=== PATIENT | male | born 1950 | race Caucasian/White ===

== ENCOUNTER 2018-11-25 13:23 | Emergency (ER) | payer MEDICARE, OTHER, SELFPAY ==
[2018-11-25] VITALS (7 sets, daily range): BP systolic 145–153; BP diastolic 80–85; PULSE 56–65; RESP 16; TEMP 36.6–36.7; O2SAT 95–98
--- NOTE | 2018-11-25 14:02 | W.ED.GENAD ---
Discharge Plan Disposition Patient Disposition: HOME Condition: Stable Discharge Details Chief Complaint: Dizzy/Sync Clinical Impression: Vertigo Primary Care Provider: Susanne,Local ED Provider: Emi Summers Home Meds and New Rx's Prescriptions: New meclizine 25 mg tablet 25 mg PO TID PRN (Reason: dizziness) Qty: 12 RF: 0 Continued levothyroxine [Synthroid] 100 mcg Tablet 100 mcg PO DAILY RF: 0 multivitamin [Multiple Vitamins] Tablet 1 tab PO DAILY RF: 0 Cpap RF: 0 Discharge Instructions Instructions: Meclizine (By mouth), Vertigo (ED) Additional Instructions: Please return immediately to the emergency department if you develop any new or worsening symptoms or if you become otherwise concerned. It is extremely important that you call as soon as possible to make an appointment to be seen by your primary care doctor in follow-up this visit. Discharge Data Discharge Date/Time-TO BE ENTERED AT DEPARTURE: 11/25/18 18:00 Medical Decision Making Dinesh Rodriguez is a 68-year-old man with a history of hypothyroidism who presented to the emergency department complaining of sudden onset vertigo that began this morning, in the setting of 2 other new episodes in the past few weeks associated with cold symptoms. On exam patient is very well and nontoxic appearing. Benign neurologic exam. Benign exam of the ears. Concern for central versus peripheral vertigo. Exam/history is not consistent with meningitis, sepsis, acute aortic pathology, central venous thrombosis. Plan for screening labs, EKG, MRI brain, telemetry. Will monitor and reassess. Discussed patient presentation, need for rule out central etiology of vertigo, Dr. Mitchell of radiology requested CT head, MRI brain, MRA [place] and carotids. Imaging negative. Patient received meclizine. Has been walking about the ED without issue. Patient reports that he feels much improved and essentially at baseline since receiving meclizine. He also reports that his ears have been popping a lot in the past few minutes. Suspect that patient symptoms secondary to inner ear dysfunction from recent congestion. Patient counseled to use [id number] Sudafed for flight tomorrow. Plan for Rx meclizine. I had a lengthy discussion with the patient regarding return to emergency department precautions, importance of outpatient follow-up with his PCP (patient has appointment with his PCP in 1 week already scheduled), and home care. Patient verbalized understanding of the plan was amenable. Patient was discharged home with clear plan for outpatient follow-up. All questions were answered. Medical Records Medical records reviewed: Yes I reviewed the patient's medical records. Imaging Data Radiologic Study: Attestation: I personally reviewed and interpreted this imaging study as follows: Radiologist's impression: CRANIAL CT: A noncontrast cranial CT was performed. The ventricular system is normal in appearance. There is no evidence of an intracranial mass lesion. There is no evidence of a subdural or epidural hematoma. No focal areas of decreased attenuation are seen. CONCLUSION: Normal noncontrast cranial CT. MR Angiography Neck Without Contrast EXAM DATE/TIME: 11/25/2018 2:33 PM CLINICAL HISTORY: 68 years old, male; Dizziness and giddiness; Patient HX: Vertigo since this morning, no recent trauma TECHNIQUE: Imaging protocol: Magnetic resonance angiography images of the neck without intravenous contrast. 3D rendering: MIP reconstructed images were created and reviewed. COMPARISON: No relevant prior studies available. FINDINGS: Motion somewhat limits evaluation. Right common carotid artery: Unremarkable. No stenosis. No dissection or occlusion. Right internal carotid artery: Unremarkable extracranial segment. No stenosis. No dissection or occlusion. Right external carotid artery: Unremarkable. No stenosis. No dissection or occlusion. Right vertebral artery: Unremarkable. No stenosis. No dissection or occlusion. Left common carotid artery: Unremarkable. No stenosis. No dissection or occlusion. Left internal carotid artery: Unremarkable extracranial segment. No stenosis. No dissection or occlusion. Left external carotid artery: Unremarkable. No stenosis. No dissection or occlusion of the origin. Left vertebral artery: Unremarkable. No stenosis. No dissection or occlusion. IMPRESSION: No hemodynamically significant stenosis. COMMENT: Reference per NASCET criteria for degree of stenosis: Mild: less than 50% stenosis. Moderate: 50-69% stenosis. Severe: 70-94% stenosis. Near occlusion: 95-99% stenosis. MR Head Without Contrast EXAM DATE/TIME: 11/25/2018 4:22 PM CLINICAL HISTORY: 68 years old, male; Patient HX: Vertigo, since this morning. Patient states sinus issues. TECHNIQUE: Imaging protocol: MR of the head without contrast. COMPARISON: HEAD^MRA COW 11/25/2018 4:16 PM FINDINGS: Brain: Mild age-related involutional changes of the brain are present. A few scattered T2/flair hyperintensities are present scattered in the white matter. These are within normal limits for patient age and most likely reflect chronic microangiopathy. No acute infarct. No hemorrhage. No edema. Ventricles: Normal. No ventriculomegaly. Bones/joints: Unremarkable. Soft tissues: Normal. Sinuses: Normal as visualized. No acute sinusitis. Mastoid air cells: Bilateral mastoid effusions are present. No significant fluid is seen in the middle air cavities. Orbits: Unremarkable. IMPRESSION: 1. No acute intracranial findings. 2. Bilateral mastoid effusions. MR Angiogram Head Without Contrast, Arteries EXAM DATE/TIME: 11/25/2018 4:22 PM CLINICAL HISTORY: 68 years old, male; Patient HX: Vertigo since this morning, no recent trauma, no visual disturbances. TECHNIQUE: Imaging protocol: MR angiogram head without contrast. Exam focused on the arteries. 3D rendering: MIP reconstructed images were created and reviewed. COMPARISON: CT HEAD WO 11/25/2018 3:02 PM FINDINGS: Right internal carotid artery: Unremarkable. Intracranial segment is patent with no significant stenosis. No aneurysm. Right anterior cerebral artery: Unremarkable. No occlusion or significant stenosis. No aneurysm. Right middle cerebral artery: Unremarkable. No occlusion or significant stenosis. No aneurysm. Right posterior cerebral artery: Unremarkable. No occlusion or significant stenosis. No aneurysm. Right vertebral artery: Unremarkable. No occlusion or significant stenosis. No aneurysm. Left internal carotid artery: Unremarkable. Intracranial segment is patent with no significant stenosis. No aneurysm. Left anterior cerebral artery: Unremarkable. No occlusion or significant stenosis. No aneurysm. Left middle cerebral artery: Unremarkable. No occlusion or significant stenosis. No aneurysm. Left posterior cerebral artery: Unremarkable. No occlusion or significant stenosis. No aneurysm. Left vertebral artery: Unremarkable. No occlusion or significant stenosis. No aneurysm. Basilar artery: Unremarkable. No occlusion or significant stenosis. No aneurysm. IMPRESSION: No acute findings. Lab Data Lab results reviewed: Yes I reviewed the patient's lab results. Laboratory Tests Range/Units 11/25/18 11/25/18 11/25/18 14:35 14:35 14:35 WBC (4.4-10.8) k/cumm 7.56 RBC (4.50-6.00) m/cumm 5.11 Hgb (13.5-17.5) g/dL 15.9 Hct (40.0-50.0) % 45.9 MCV (80-95) fL 89.8 MCH (27.0-33.0) pg 31.1 MCHC (32.0-36.0) g/dL 34.6 RDW (11.8-14.1) % 13.3 Plt Count (130-400) x1000/uL 182 MPV (8.0-11.0) fL 11.3 H Immature Gran % 0.3 Neutrophils % 61.5 Lymphocytes % 26.3 Monocytes % 8.3 Eosinophils % 3.3 Basophils % 0.3 Absolute Neutrophils (1.2-6.7) k/cumm 4.65 Absolute Lymphocytes (1.2-3.4) k/cumm 1.99 Absolute Monocytes (0.11-0.7) k/cumm 0.63 Absolute Eosinophils (0.0-0.7) k/cumm 0.25 Absolute Basophils (0.0-0.2) k/cumm 0.02 PT (9.3-11.0) sec 10.2 INR (0.9-1.1) 1.0 Sodium (136-145) mmol/L 139 Potassium (3.5-5.1) mmol/L 3.9 Chloride (98-107) mmol/L 105 Carbon Dioxide (21.0-32.0) mmol/L 23.3 Anion Gap (3-11) mmol/L 10.7 BUN (7-18) mg/dL 20 H Creatinine (0.70-1.30) mg/dL 1.06 Estimated GFR/1.73 m2 (mL/min/1.73m2) >= 60.00 Glucose (70-100) mg/dL 96 Calcium (8.5-10.1) mg/dL 8.9 Total Bilirubin (0.2-1.0) mg/dL 0.5 AST (15-37) U/L 32 ALT (12-78) U/L 72 Alkaline Phosphatase (46-116) U/L 88 Total Protein (6.4-8.2) g/dL 7.3 Albumin (3.4-5.0) g/dL 3.7 TSH (0.358-3.74) uIU/mL 2.08 ECG Data Attestation: I personally reviewed and interpreted this ECG (s) as follows: Interpretation: EKG shows sinus rhythm at 63, normal axis, incomplete right bundle branch block, no STEMI, nondiagnostic EKG HPI General Mode of arrival: ambulatory. Date/Time Provider Initiated Documentation: 11/25/18 14:02. Limitations to Documentation: no limitations. Information obtained by: patient, RN notes reviewed and old records reviewed. HPI Narrative: Dinesh Rodriguez is a 68-year-old male with a history of hypothyroidism presenting to the emergency department with vertigo. Patient states that approximate 3 weeks ago he had congestion body aches sweats that lasted for 5 days. Patient flew from [place] to [place] 2 weeks ago, and reports that after that flight he had another 5 days of congestion, sweats, and body aches. He also notes that he had some vertigo at that time, which she has never had in the past. Patient reports that he had another episode of vertigo that lasted for 1 day several days ago with other symptoms. Patient reports that otherwise he has been feeling well in his usual state of health for the past 3 days. He woke up this morning, and upon sitting up to get out of bed, he developed significant vertigo to the point where he felt that he could not walk. Patient reports that vertigo continues, and is worse with a change in his position. He also notes that he has a buzzing/humming in both ears. He denies headaches, any other pain, shortness of breath, cough, numbness/weakness the extremities, rash. Patient reports that he has never had vertigo prior to onset several weeks ago as described above. Has been eating and drinking as usual. Reports rare alcohol and marijuana use, no tobacco use. Related Data Home Medications Medication Instructions Recorded Confirmed Cpap 11/25/18 levothyroxine [Synthroid] 100 mcg PO DAILY 11/25/18 11/25/18 meclizine 25 mg PO TID PRN #12 tab 11/25/18 multivitamin [Multiple Vitamins] 1 tab PO DAILY 11/25/18 11/25/18 Previous Rx's Medication Instructions Recorded meclizine 25 mg PO TID PRN #12 tab 11/25/18 Allergies Allergy/AdvReac Type Severity Reaction Status Date / Time cilantro Allergy Uncoded 11/25/18 13:45 General Stated Complaint: Dizzy/Sync MARCK: 3 Review of Systems Review of Systems Constitutional: denies fevers Eyes: denies eye pain ENT: denies facial pain, dental pain, sore throat, reports nasal congestion, mild buzzing/coming in the ears that is not currently occurring Cardiovascular: denies chest pain, edema Respiratory: denies SOB, cough GI: denies abdominal pain, vomiting, diarrhea : denies flank pain MSK: denies back pain, neck pain, arthralgias, myalgias Skin: denies rash Neuro: denies headaches, numbness, weakness, reports vertigo PFSH Medical History Hypothyroidism (Chronic) Social History Smoking/Tobacco Use Status: Never Substance use type: marijuana Exam Narrative Exam Narrative: Constitutional: well and [id number], pleasant, conversing normally HENT: head atraumatic/normocephalic/normal inspection, mucous membranes moist, TMs and canals normal bilaterally, normal exam of the outer ears, no mastoid tenderness to palpation bilaterally Eyes: conjunctiva normal, sclera normal, pupils 3mm b/l Neck: no stridor, normal ROM, trachea midline Chest: normal inspection Resp: normal work of breathing, LCTAB Cardio: normal rate, normal rhythm, no murmur appreciated GI: abdomen soft, non-tender, non-distended Back: normal inspection, no rash Skin: warm, dry, normal color, no rash Neuro: alert, not altered, cranial nerves II through XII intact, motor 5 out of 5 throughout, normal tone, Ext: no edema, no posterior calf tenderness to palpation Psych: normal mood, normal affect, normal behavior Course Vital Signs Temperature 36.7 C 11/25/18 13:39 Pulse 65 11/25/18 13:39 Respiratory Rate 16 11/25/18 13:39 Blood Pressure 151/80 H 11/25/18 13:39 Pulse Oximetry 96 11/25/18 13:39 Temperature 36.7 C 11/25/18 13:39 Temperature Source Skin 11/25/18 13:39 Pulse 65 11/25/18 13:39 Respiratory Rate 16 11/25/18 13:39 Respiratory Effort Non-Labored 11/25/18 13:39 Blood Pressure 151/80 H 11/25/18 13:39 Blood Pressure Position Sitting 11/25/18 13:39 Pulse Oximetry 96 11/25/18 13:39 Oxygen Delivery Method Room Air 11/25/18 13:39 Oxygen Flow Rate 0 11/25/18 13:39 Pain Level 0 11/25/18 13:39
--- NOTE | 2018-11-25 14:30 | DI.CT_ITS ---
SYMPTOMS/DIAGNOSIS: VERTIGO CRANIAL CT: A noncontrast cranial CT was performed. The ventricular system is normal in appearance. There is no evidence of an intracranial mass lesion. There is no evidence of a subdural or epidural hematoma. No focal areas of decreased attenuation are seen. CONCLUSION: Normal noncontrast cranial CT.
[2018-11-25 14:42] LABS: Abs Immature Grans 0.02 k/cumm (0.0-0.09); Absolute Basophil Count 0.02 k/cumm (0.0-0.2); Absolute Eosinophil Count 0.25 k/cumm (0.0-0.7); Absolute Lymphocyte Count 1.99 k/cumm (1.2-3.4); Absolute Monocyte Count 0.63 k/cumm (0.11-0.7); Absolute Neutrophil Count 4.65 k/cumm (1.2-6.7); Basophils % 0.3; Eosinophils % 3.3; HCT 45.9 % (40.0-50.0); HGB 15.9 g/dL (13.5-17.5); Immature Grans % 0.3; Lymphocytes % 26.3; Mean Corp. HGB Concentration 34.6 g/dL (32.0-36.0); Mean Corpuscular Hemoglobin 31.1 pg (27.0-33.0); Mean Corpuscular Volume 89.8 fL (80-95); Mean Platelet Volume 11.3 fL (8.0-11.0); Monocytes % 8.3; Neutrophils % 61.5; Platelet Count 182 x1000/uL (130-400); RBC 5.11 m/cumm (4.50-6.00); RBC Distribution Width 13.3 % (11.8-14.1); White Blood Cell Count 7.56 k/cumm (4.4-10.8)
[2018-11-25 14:53] LABS: Prothrombin Time 10.2 sec (9.3-11.0)
[2018-11-25 15:06] LABS: ALT 72 U/L (12-78); AST 32 U/L (15-37); Albumin 3.7 g/dL (3.4-5.0); Alkaline Phosphatase 88 U/L (46-116); Anion Gap 10.7 mmol/L (3-11); BUN 20 mg/dL (7-18); Bilirubin, Total 0.5 mg/dL (0.2-1.0); CO2 23.3 mmol/L (21.0-32.0); CREATININE 1.06 mg/dL (0.70-1.30); Calcium 8.9 mg/dL (8.5-10.1); Chloride 105 mmol/L (98-107); Glucose 96 mg/dL (70-100); Potassium 3.9 mmol/L (3.5-5.1); Sodium 139 mmol/L (136-145); TSH (W/Ref FT4) 2.08 uIU/mL (0.358-3.74); Total Protein 7.3 g/dL (6.4-8.2)
--- NOTE | 2018-11-25 16:15 | DI.MRI_ITS ---
SYMPTOM/DIAGNOSIS: VERTIGO MR ANGIOGRAPHY CERVICAL REGION: MR angiography of the carotid and vertebral circulation was performed according to the usual protocol utilizing 2D time of flight acquisition. There is marked motion artifact which limits interpretation. No gross evidence of occlusion involving the vertebral arteries or visualized portion of the basilar artery. No occlusion of common internal or external carotid arteries. CONCLUSION: Severely motion limited study. No gross occlusion. CTA of the carotid circulation may be obtained for further evaluation as clinically indicated. BRAIN MRI: MRI examination of the brain was performed according to the usual protocol. There is mild generalize cerebral atrophy. Minimal signal changes in periventricular white matter are consistent with mild microvascular ischemic changes. No other signal abnormality identified in the brain. Diffusion weighted imaging shows no evidence of infarction. Susceptibility weighted imaging shows no evidence of intracranial hemorrhage. There is a normal flow void in the [place] vasculature. The orbital structures appear intact as does the pituitary. There is mildly increased signal in mastoid air cells bilaterally on T 2 weighted images consistent with a mild serous mastoiditis. Otherwise the temporal bone structures appear intact. CONCLUSION: No evidence of acute intracranial process. No evidence of infarction. MR ANGIOGRAPHY [place] REGION: MR angiography of the [place] region was performed according to the usual protocol. The visualized intracranial portions of the internal carotid arteries appear of normal diameter with no evidence of occlusion, dissection or aneurysm. Basilar artery is unremarkable with no evidence of occlusion, dissection or aneurysm. Posterior, middle and anterior cerebral arteries appear intact bilaterally with no evidence of occlusion, dissection or aneurysm. CONCLUSION: Negative MR angiography [place] region.
--- NOTE | 2018-11-25 16:59 | DI.VRAD_ITS ---
EXAM: MR Head Without Contrast EXAM DATE/TIME: 11/25/2018 4:22 PM CLINICAL HISTORY: 68 years old, male; Patient HX: Vertigo, since this morning. Patient states sinus issues. TECHNIQUE: Imaging protocol: MR of the head without contrast. COMPARISON: HEAD^MRA COW 11/25/2018 4:16 PM FINDINGS: Brain: Mild age-related involutional changes of the brain are present. A few scattered T2/flair hyperintensities are present scattered in the white matter. These are within normal limits for patient age and most likely reflect chronic microangiopathy. No acute infarct. No hemorrhage. No edema. Ventricles: Normal. No ventriculomegaly. Bones/joints: Unremarkable. Soft tissues: Normal. Sinuses: Normal as visualized. No acute sinusitis. Mastoid air cells: Bilateral mastoid effusions are present. No significant fluid is seen in the middle air cavities. Orbits: Unremarkable. IMPRESSION: 1. No acute intracranial findings. 2. Bilateral mastoid effusions. Dictated and Authenticated by: Karlos Bullard MD. Ordering:ARTHUR Middleton MD
--- NOTE | 2018-11-25 17:01 | DI.VRAD_ITS ---
EXAM: MR Angiography Neck Without Contrast EXAM DATE/TIME: 11/25/2018 2:33 PM CLINICAL HISTORY: 68 years old, male; Dizziness and giddiness; Patient HX: Vertigo since this morning, no recent trauma TECHNIQUE: Imaging protocol: Magnetic resonance angiography images of the neck without intravenous contrast. 3D rendering: MIP reconstructed images were created and reviewed. COMPARISON: No relevant prior studies available. FINDINGS: Motion somewhat limits evaluation. Right common carotid artery: Unremarkable. No stenosis. No dissection or occlusion. Right internal carotid artery: Unremarkable extracranial segment. No stenosis. No dissection or occlusion. Right external carotid artery: Unremarkable. No stenosis. No dissection or occlusion. Right vertebral artery: Unremarkable. No stenosis. No dissection or occlusion. Left common carotid artery: Unremarkable. No stenosis. No dissection or occlusion. Left internal carotid artery: Unremarkable extracranial segment. No stenosis. No dissection or occlusion. Left external carotid artery: Unremarkable. No stenosis. No dissection or occlusion of the origin. Left vertebral artery: Unremarkable. No stenosis. No dissection or occlusion. IMPRESSION: No hemodynamically significant stenosis. COMMENT: Reference per NASCET criteria for degree of stenosis: Mild: less than 50% stenosis. Moderate: 50-69% stenosis. Severe: 70-94% stenosis. Near occlusion: 95-99% stenosis. Dictated and Authenticated by: Karlos Bullard MD. Ordering:ARTHUR Middleton MD
--- NOTE | 2018-11-25 17:04 | DI.VRAD_ITS ---
EXAM: MR Angiogram Head Without Contrast, Arteries EXAM DATE/TIME: 11/25/2018 4:22 PM CLINICAL HISTORY: 68 years old, male; Patient HX: Vertigo since this morning, no recent trauma, no visual disturbances. TECHNIQUE: Imaging protocol: MR angiogram head without contrast. Exam focused on the arteries. 3D rendering: MIP reconstructed images were created and reviewed. COMPARISON: CT HEAD WO 11/25/2018 3:02 PM FINDINGS: Right internal carotid artery: Unremarkable. Intracranial segment is patent with no significant stenosis. No aneurysm. Right anterior cerebral artery: Unremarkable. No occlusion or significant stenosis. No aneurysm. Right middle cerebral artery: Unremarkable. No occlusion or significant stenosis. No aneurysm. Right posterior cerebral artery: Unremarkable. No occlusion or significant stenosis. No aneurysm. Right vertebral artery: Unremarkable. No occlusion or significant stenosis. No aneurysm. Left internal carotid artery: Unremarkable. Intracranial segment is patent with no significant stenosis. No aneurysm. Left anterior cerebral artery: Unremarkable. No occlusion or significant stenosis. No aneurysm. Left middle cerebral artery: Unremarkable. No occlusion or significant stenosis. No aneurysm. Left posterior cerebral artery: Unremarkable. No occlusion or significant stenosis. No aneurysm. Left vertebral artery: Unremarkable. No occlusion or significant stenosis. No aneurysm. Basilar artery: Unremarkable. No occlusion or significant stenosis. No aneurysm. IMPRESSION: No acute findings. Dictated and Authenticated by: Karlos Bullard MD. Ordering:ARTHUR Middleton MD
[2018-11-25] MEDS: Meclizine 25 MG TAB PO (17:13)
== END 2018-11-25 18:00 | disposition home or self-care (01) ==
PROVIDERS: Emergency Provider Student in an Organized Health Care Education/Training Program
DX: R42 Dizziness and giddiness (principal); H74.8X3 Other specified disorders of middle ear and mastoid, bilateral
CPT/HCPCS: 36415; 70544; 70547; 80053; 93005; 99285; 70450; 70551; 84443; 85025; 85610; 93010

== ENCOUNTER 2021-04-17 03:15 | Outpatient (CLI) | payer MEDICARE, MEDICAID, SELFPAY ==
--- OUTSIDE RECORDS SUMMARY | 2021-04-17 03:17 | XMS_ITS | Encounter Summary ---
:1950 Author Organization [facility] [place] [address] Care Team Providers Name Role Phone MD Sukh Primary Care Provider Reason for Visit Reason Onset Date Comments COVID Vaccination 06/13/2020 Encounter Details Date Type Department Care Team Description 06/13/2020 Immunizations SBCPHD SYBIL AMANDAHoa Louis Nee d for vaccination PRIMARY CARE RN (Primary Dx) [address] [place] [id number] [phone] Social History Tobacco Use Types Packs/Day Years Used Date Never Smoker Smokeless Tobacco: Never Used Alcohol Use Standard Drinks/Week Comments No 0 (1 standard drink = 0.6 oz pure alcoho l) ocasionally Alcohol Habits Answer Date Recorded How often do you have a drink containing alcohol? Not asked How many drinks containing alcohol do you have on a Not aske d typical day when you are drinking? How often do you have six or more drinks on one occasion? No t asked Comment: ocasionally 07/19/2017 Sex Assigned at Date Recorded Male 07/19/2017 10:24 AM PST COVID-19 Exposure Response Date Recorded In the last month, have you been in contact with No / Unsure 06/13/2020 7:37 AM PST someone who was confirmed or suspected to have Coronavirus / COVID-19? documented as of this encounter Patient Instructions Patient InstructionsHoa Mendez RN - 06/13/2020 11:06 AM PST Images from the original note were not included. FACT SHEET FOR RECIPIENTS AND CAREGIVERS EMERGENCY USE AUTHORIZATION (EUA) OF THE MODERNA COVID-19 VACCINE TO PREVENT CORONAVIRUS DISEASE 2019 (COVID-19) IN INDIVIDUALS 18 YEARS OF AGE AND OLDER You are being offered the Moderna COVID-19 Vaccine to prevent Coronavirus Disease 2019 (COVID-19) caused by SARS-CoV-2. This Fact Sheet contains information to help you understand the risks and benefits of the Moderna COVID- 19 Vaccine, which you may receive because there is currently a pandemic of COVI D-19. The Moderna COVID-19 Vaccine is a vaccine and may prevent you from getting COVID-19. There is no U.S. Food and Drug Administration (FDA) approved vaccine to prevent COVID-19. Read this Fact Sheet for information about the Moderna COVID-19 Vaccine. Talk to the vaccination provider if you have questions. It is your choice to receive the Moderna COVID-19 Vaccine. The Moderna COVID-19 Vaccine is administered as a 2-dose series, 1 month apart, into the muscle. The Moderna COVID-19 Vaccine may not protect everyone. This Fact Sheet may have been updated. For the most recent Fact Sheet, please visit www.[email or web address]/clwlt71jugqioy-lee. WHAT YOU NEED TO KNOW BEFORE YOU GET THIS VACCINE WHAT IS COVID-19? COVID-19 is caused by a coronavirus called SARS-CoV-2. This type of coronavirus has not been seen before. You can get COVID-19 through contact with another person who has the virus. It is predominantlya respiratory illness that can affect other organs. People with COVID- 19 have had a wide range of symptoms reported, ranging from mild symptoms to severe illness. Symptoms may appear 2 to 14 days after exposure to the virus. Symptoms may include: fever or chills; cough; shortness of breath; fatigue; muscle or body aches; headache; new loss of taste or smell; sore throat; congestion or runny nose; nausea or vomiting; diarrhea. WHAT IS THE MODERNA COVID-19 VACCINE? The Moderna COVID-19 Vaccine is an unapproved vaccine that may prevent COVID-19. There is no FDA-approved vaccine to prevent COVID-19. The FDA has authorized the emergency use of the Moderna COVID-19 Vaccine to prevent COVID-19 in individuals 18 years of age and older under an Emergency Use Authorization (EUA). For more information on EUA, see the ???What is an Emergency Use Authorization (EUA)??? section at the end of this Fact Sheet. WHAT SHOULD YOU MENTION TO YOUR VACCINATION PROVIDER BEFORE YOU GET THE MODERNA COVID-19 VACCINE? Tell your vaccination provider about all of your medical conditions, including if you: ??? have any allergies ??? have a fever ??? have a bleeding disorder or are on a blood thinner ??? are immunocompromised or are on a medicine that affects your immune system ??? are or plan to become ??? are ??? have received another COVID-19 vaccine WHO SHOULD GET THE MODERNA COVID-19 VACCINE? [facility] has authorized the emergency use of the Moderna COVID-19 Vaccine in individuals 18 years of age and older. WHO SHOULD NOT GET THE MODERNA COVID-19 VACCINE? You should not get the Moderna COVID-19 Vaccine if you: ??? had a severe allergic reaction after a previous dose of this vaccine ??? had a severe allergic reaction to any ingredient of this vaccine WHAT ARE THE INGREDIENTS IN THE MODERNA COVID-19 VACCINE? The Moderna COVID-19 Vaccine contains the following ingredients: messenger ribonucleic acid (mRNA), lipids (SM-102, polyethylene glycol [PEG] 2000 dimyristoyl glycerol [DMG], cholesterol, and 1,2-distea qdne-ee-fzqlttn-3-phosphocholine [DSPC]), tromethamine, tromethamine hydrochloride, acetic acid, sodium acetate, and sucrose. HOW IS THE MODERNA COVID-19 VACCINE GIVEN? The Moderna COVID-19 Vaccine will be given to you as an injection into the muscle. The Moderna COVID-19 Vaccine vaccination series is 2 doses given 1 month apart. If you receive one dose of the Moderna COVID-19 Vaccine, you should receive a second dose of the same vaccine 1 month later to complete the vaccination series. HAS THE MODERNA COVID-19 VACCINE BEEN USED BEFORE? The Moderna COVID-19 Vaccine is an unapproved vaccine. In clinical trials, approximately 15,400 individuals 18 years of age and older have received at least 1 dose of the Moderna COVID-19 Vaccine. WHAT ARE THE BENEFITS OF THE MODERNA COVID-19 VACCINE? In an ongoing clinical trial, the Moderna COVID-19 Vaccine has been shown to prevent COVID-19 following 2 doses given 1 month apart. The duration of protection against COVID-19 is currently unknown. WHAT ARE THE RISKS OF THE MODERNA COVID-19 VACCINE? Side effects that have been reported with the Moderna COVID-19 Vaccine include: ??? Injection site reactions: pain, tenderness and swelling of the lymph nodes in the same arm of the injection, swelling (hardness), and redness ??? General side effects: fatigue, headache, muscle pain, joint pain, chills, nausea and vomiting, and fever There is a remote chance that the Moderna COVID-19 Vaccine could cause a severe allergic reaction. Asevere allergic reaction would usually occur within a few minutes to one hour after getting a dose of the Moderna COVID-19 Vaccine. For this reason, your vaccination provider may ask you to stay at theplace where you received your vaccine for monitoring after vaccination. Signs of a severe allergic reaction can include: ??? Difficulty breathing ??? Swelling of your face and throat ??? A fast heartbeat ??? A bad rash all over your body ??? Dizziness and weakness These may not be all the possible side effects of the Moderna COVID-19 Vaccine. Serious and unexpected side effects may occur. The Moderna COVID-19 Vaccine is still being studied in clinical trials. WHAT SHOULD I DO ABOUT SIDE EFFECTS? If you experience a severe allergic reaction, call 9--1, or go to the nearest hospital. Call the vaccination provider or your healthcare provider if you have any side effects that bother you or do not go away. Report vaccine side effects to FDA/CDC Vaccine Adverse Event Reporting System (VAERS). The VAERS toll-free number is or report online to https://vaers.hhs.gov/reportevent.html. Please include ???Moderna COVID-19 Vaccine EUA?? in the first line of box #18 of the report form. In addition, you can report side effects to [employer]. at [phone]-POWMFQM ([phone]- [phone]). You may also be given an option to enroll in TSB. AkesoGenX is a new voluntary smartphone-based toolthat uses text messaging and web surveys to check in with people who have been vaccinated to identify potential side effects after COVID- 19 vaccination. Coolest Coolersafe asks questions that help CDC monitor the safety of COVID- 19 vaccines. V-safe also provides second-dose reminders if needed and live telephone follow-up by [facility] if participants report a significant health impact following COVID-19 vaccination. For more information on how to sign up, visit: www.cdc.gov/vsafe. WHAT IF I DECIDE NOT TO GET THE MODERNA COVID-19 VACCINE? It is your choice to receive or not receive the Moderna COVID-19 Vaccine. Should you decide not to receive it, it will not change your standard medical care. ARE OTHER CHOICES AVAILABLE FOR PREVENTING COVID-19 BESIDES MODERNA COVID-19 VACCINE? Currently, there is no FDA-approved alternative vaccine available for prevention of COVID-19. Other vaccines to prevent COVID-19 may be available under Emergency Use Authorization. CAN I RECEIVE THE MODERNA COVID-19 VACCINE WITH OTHER VACCINES? There is no information on the use of the Moderna COVID-19 Vaccine with other vaccines. WHAT IF I AM OR ? If you are or , discuss your options with your healthcare provider. WILL THE MODERNA COVID-19 VACCINE GIVE ME COVID-19? No. The Moderna COVID-19 Vaccine does not contain SARS-CoV-2 and cannot give you COVID-19. KEEP YOUR VACCINATION CARD When you receive your first dose, you will get a vaccination card to show you when to return for your second dose of the Moderna COVID-19 Vaccine. Remember to bring your card when you return. ADDITIONAL INFORMATION If you have questions, visit the website or call the telephone number provided below. To access the most recent Fact Sheets, please scan the QR code provided below. Moderna COVID-19 Vaccine website Telephone number [email or web address] [phone]-RISTETA ( ) HOW CAN I LEARN MORE? Ask the vaccination provider ??? Visit CDC at https://www.cdc.gov/coronavirus/2019-ncov/index.html ??? Visit FDA at https://www.fda.gov/ceoqmawdn-xwyxlntiagul-qor-response/mcm-legal- upxurgltci-kjb-bpxivd-framework/hcukkyyzi-pct-itslasgmlbbms ??? Contact your state or local public health department WHERE WILL MY VACCINATION INFORMATION BE RECORDED? The vaccination provider may include your vaccination information in your state/local jurisdiction???s Immunization Information System (IIS) or other designated system. This will ensure that you receive the same vaccine when you return for the second dose. For more information about IISs, visit: https://www.cdc.gov/vaccines/programs/iis/about.html. WHAT IS THE COUNTERMEASURES INJURY COMPENSATION PROGRAM? The Countermeasures Injury Compensation Program (CICP) is a federal program that may help pay for costs of medical care and other specific expenses of certain people who have been seriously injured by certain medicines or vaccines, including this vaccine. Generally, a claim must be submitted to the CICP within one (1) year from the date of receiving the vaccine. To learn more about this program, visit www.[facility].gov/cicp/ or call . WHAT IS AN EMERGENCY USE AUTHORIZATION (EUA)? The [place] FDA has made the Moderna COVID-19 Vaccine available under an emergency access mechanism called an EUA. The EUA is supported by a [place] of Health and Human Services (HHS) declaration that circumstances exist to justify the emergency use of drugs and biological products during the COVID-19 pandemic. The Moderna COVID-19 Vaccine has not undergone the same type of review as an FDA- approved or cleared product. FDA may issue an EUA when certain criteria are met, which includes that there are no adequate, approved, and available alternatives. In addition, the FDA decision is based on the totality of the scientific evidence available showing that the product may be effective to prevent COVID-19 during the COVID-19 pandemic and that the known and potential benefits of the product outweigh the known and potential risks of the product. All of these criteria must be met to allow for the product to be used during the COVID-19 pandemic. The EUA for the Moderna COVID-19 Vaccine is in effect for the duration of the COVID-19 EUA declaration justifying emergency use of these products, unless terminated or revoked (after which the productsmay no longer be used). ??2020 [employer]. All rights reserved. Patent(s): [email or web address] Revised: 04/2020 documented in this encounter Progress Notes Hoa Mendez RN - 06/13/2020 11:06 AM PST Patient presents to the clinic for the First dose COVID-19 vaccination. Patient provided written and verbal consent and screened according to CDC guidelines. Patient provided with written copy of EUA and patient fact sheet prior to injection. Opportunity given to ask questions. Moderna COVID-19 vaccine given Intramuscular to right deltoid per standing order. Patient educated on common side effects of the vaccine, when to report an adverse event and encouraged to sign up for V-safe. Patient provided with a date to return for their second injection. documented in this encounter Plan of Treatment Not on filedocumented as of this encounter Goals Goal Patient Goal Associated Recent Patient-Stated? Author Type Problems Progress decrease General Yes Josemanuel, anxiety GABBY Deutsch Note: 1.) Continue paying attention to your se lf talk every day, and start using coping thoughts this week. 2.) Continue to go for walks for at leas t 30 minutes per day. 3.) Continue doing yoga at least once fo r at least 30 minutes this week. 4.) Continue to watch DIY videos which y ou find relaxing at least 3 times this week. 5.) Continue to practicing relaxation ex ercises for at least 10 minutes per day. documented as of this encounter Visit Diagnoses Diagnosis Need for vaccination - Primary Need for prophylactic vaccination and in oculation against unspecified single disease documented in this encounter Additional Health Concerns Assessment Noted Time PHQ-9 Depression Total Score: 0 05/25/2019 10:22 AM PS T documented as of this encounter Care Teams Gun Stocker Relationship Specialty Start Date End Date Lior Luz MD PCP - General Internal Medicine 07/19/17 01/16/21 [facility] [place] [id number] documented as of this encounter
--- OUTSIDE RECORDS SUMMARY | 2021-04-17 03:17 | XMS_ITS | Clinical Summary ---
:1950 Author Organization [facility] [place] [address] Care Team Providers Name Role Phone MD Selwyn Primary Care Provider Source Comments PLEASE NOTE, if this patient is a minor, it may be UNLAWFUL to discuss sensitive information that iscontained in these records (such as FAMILY PLANNING, MENTAL HEALTH or SUBSTANCE ABUSE) with the minor patient's parent or other person without the patient's specific authorization.[facility] Allergies No known active allergies Medications Medication Sig Dispensed Refills Start Date End Date Status sildenafil (VIAGRA) Instructions: 1/2 0 06/18/2016 Active 100 mg tablet to 1 tablet daily, 30 min - 4 hours before activity, as needed amytpgog-qoflaqwgv-FF Place 5 Drops 10 mL 0 12/03/2018 Active (CORTISPORIN) into the right 3.5-10,000-1 ear 4 (four) mg/mL-unit/mL-% otic times daily suspension fluticasone propionate Place 1 [place] in 16 g 2 03/09/2019 Active (FLONASE) 50 both nostrils mcg/actuation nasal once daily spray loratadine (CLARITIN) Take 1 Tab by 30 Tab 2 03/09/2019 Active 10 mg tablet mouth once daily as needed for allergies meclizine (ANTIVERT) Take 1 Tab by 45 Tab 1 12/25/2019 Active 25 mg tablet mouth once as needed for dizziness for up to 1 dose levothyroxine 100 mcg Take 1 Tablet by 90 Tablet 3 11/01/2020 Active tabletIndications: mouth once daily Hypothyroidism, unspecified type amLODIPine-benazepriL Take 1 Capsule by 90 Capsule 2 Active (LOTREL) 10-40 mg per mouth once daily capsule Active Problems Problem Noted Date Moderate mixed hyperlipidemia not requiring statin the rapy 06/28/2020 Last Assessment & Plan: Pt is very motivated to lose weight and change diet with his upcoming move. Although his The 10-year ASCVD risk scor e (Lio BLANC Jr., et al., 2013) is: 30.5%, I do think with aggressive lifestyle changes this could be greatly improved Discussed he will likely need a statin i n the future Pt will establish with PCP in [place] Pre-diabetes 06/28/2020 Benign paroxysmal positional vertigo due to bilateral vestibular disorder 12/25/2019 Last Assessment & Plan: Refill Meclizine Recommend josé miguel maneuvers, pt will look up Essential hypertension 07/22/2019 Last Assessment & Plan: Hypertension is well managed at this [facility]. Plan: Continue current treatment regimen and Regular aerobic exercise Blood pressure will be reassessed in 3 m [facility]. Nasal sinus congestion 03/09/2019 Last Assessment & Plan: flonase daily Trial of claritin Continue ibuprofen prn Follow up with Dr. Luz Partner relationship problems 03/09/2019 Last Assessment & Plan: Referral placed for [facility] Testosterone deficiency in male 07/25/2018 Elevated prostate specific antigen (PSA) 11/05/2017 Overview: bx 07/29/17: neg PSA: 6.2 on 04/2016 8. 6 04/2017 Last Assessment & Plan: PSA 9.9 from 9.[address] Lewis as pt is mov ing next month Osteoarthritis 10/26/2016 Obstructive sleep apnea 04/16/2016 Hypothyroidism 03/15/2016 Last Assessment & Plan: TFTs wnl Continue levothyroxine 100mcg daily Obesity 03/01/2016 Last Assessment & Plan: Discussed diet and exercise - pt is opti mistic that he will be able to change a lot of his lifestyle after this move. Having a kitchen will give him a lot more options Insomnia 03/01/2016 Sleep apnea 03/01/2016 Gastro-esophageal reflux disease without esophagitis 1 Male erectile dysfunction 03/01/2016 Resolved Problems Problem Noted Date Resolved Date Rash and other nonspecific skin eruption 05/16/2016 11/05/2017 Other fatigue 03/01/2016 11/05/2017 Encounter for general adult medical examination without 02/1711/05/2017 abnormal findings Encounter for screening for malignant neoplasm of colon 02/1711/05/2017 Immunizations Name Administration Dates Next Due Moderna COVID-19 Vaccine 07/08/2020, 06/13/2020 PNEUMOCOCCAL CONJUGATE PCV 13 11/05/2017 ZOSTER VACCINE, RECOMBINANT (SHINGRIX) 04/25/2018, 8 Zoster, Live Vaccine (Zostavax) 04/25/2018, 2018 Social History Tobacco Use Types Packs/Day Years Used Date Never Smoker Smokeless Tobacco: Never Used Tobacco Cessation: Counseling Given: No Alcohol Use Standard Drinks/Week Comments No 0 [...] Date Recorded Male 07/19/2017 10:24 AM PST Last Filed Vital Signs Vital Sign Reading Time Taken Comments Blood Pressure 165/70 07/22/2019 10:13 AM PST Pulse 64 07/22/2019 10:13 AM PST Temperature 36.1 ??C (97 ??F) 07/22/2019 10:13 AM PST Respiratory Rate 18 07/22/2019 10:13 AM PST Oxygen Saturation 98% 07/22/2019 10:13 AM PST Inhaled Oxygen Concentration - - Weight 108.9 kg (240 lb) 07/22/2019 10:13 AM PST Height 175.3 cm (5' 9) 07/22/2019 10:13 AM PST Body Mass Index 35.44 07/22/2019 10:13 AM PST Plan of Treatment Health Maintenance Due Date Last Done Comments Imm-DTaP/Tdap/Td (1 - Tdap) 01/23/1971 CT Colonography 01/23/1997 FIT/gFOBT 01/23/1997 Fecal DNA 01/23/1997 Flexible Sigmoidoscopy 01/23/1997 Falls Prevention 01/23/2017 Imm-Pneumococcal 65+ (2 of 2 - 11/05/2018 11/05/2017 PPSV23) Depression Annual Screen (#1) 05/20/2020 05/25/2019, 2018 SBIRT Annual Alcohol And Drug 05/20/2020 05/25/2019 Screen Imm-Influenza (#1) 2020 Ggg-[id number]-80 (3 - Booster for 01/05/2021 07/08/2020, 2020 Moderna series) Diabetes Screening 06/14/2021 06/14/2020, 05/15/2019, 11/28/2018, Additional history exists Lipid Screening 06/14/2021 06/14/2020, 10/22/2016, 10/22/2016, Additional history exists Colonoscopy 05/25/2026 05/25/2016 Colorectal Cancer Screening 05/25/2026 Hepatitis C Screening Completed 01/17/2018 Abdominal Aortic Aneurysm Completed 04/02/2018 Screening Imm-Zoster, Recombinant Discontinued 04/25/2018, 04/25/2018, 2018, Additional history exists Goals Goal Patient Goal Associated Recent Patient-Stated? Author Type Problems Progress decrease General Yes bree Abernathy LCSW Note: 1.) Continue paying attention to your [...] for at least 10 minutes per day. Insurance Payer Benefit Plan Subscriber ID Effective Phone Address Typ e / Group Dates [place] [id number] 2017-Prese [phone] [address] [place] [address] [place] [address] CENCAL CENCAL MEMBER [id number] 2017-Prese [address] [place] [address] Care Teams Hairmasters Manager Relationship Specialty Start Date End Date Glenny Samano MD PCP - General 01/17/21 [facility] [place] [address]
--- OUTSIDE RECORDS SUMMARY | 2021-04-17 03:17 | XMS_ITS | Encounter Summary ---
:1950 Author Organization [facility] [place] [address] Care Team Providers Name Role Phone MD Sukh Primary Care Provider Encounter Details Date Type Department Care Team Description 04/18/2020 Travel Social History Tobacco Use Types Packs/Day Years [...] been in contact with No / Unsure 04/18/2020 10:34 AM PST someone who was confirmed or suspected to have Coronavirus / COVID-19? documented as of this encounter Plan of Treatment Not on filedocumented as of this encounter Goals Goal Patient Goal Associated Recent Patient-Stated? Author Type Problems Progress decrease General Yes Josemanuel, bree Deutsch LCSW Note: 1.) Continue paying attention to [...] documented as of this encounter Visit Diagnoses Not on filedocumented in this encounter Additional Health Concerns Assessment Noted Time PHQ-9 Depression Total Score: 0 05/25/2019 10:22 AM PS T documented as of this encounter Care Teams Code Enforcement Officer Relationship Specialty Start Date End Date Lior Luz MD PCP - General Internal Medicine 07/19/17 01/16/21 [address] [place] [address] documented as of this encounter
--- OUTSIDE RECORDS SUMMARY | 2021-04-17 03:17 | XMS_ITS | Encounter Summary ---
:1950 Author Organization [facility] [place] [address] Care Team Providers Name Role Phone MD Sukh Primary Care Provider Encounter Details Date Type Department Care Team Description 03/31/2020 Travel Social History Tobacco Use Types Packs/Day [...] been in contact with No / Unsure 03/31/2020 7:42 AM PST someone who was confirmed or [...] documented as of this encounter Care Teams Sports Photographer Relationship Specialty Start Date End Date Lior Luz MD PCP - General Internal Medicine 07/19/17 01/16/21 [address] [place] [address] documented as of this encounter
--- OUTSIDE RECORDS SUMMARY | 2021-04-17 03:17 | XMS_ITS | Encounter Summary ---
:1950 Author Organization [facility] [place] [address] Care Team Providers Name Role Phone MD Sukh Primary Care Provider Encounter Details Date Type Department Care Team Description 07/08/2020 Travel Social History Tobacco Use Types Packs/Day [...] been in contact with No / Unsure 07/08/2020 7:25 AM PST someone who was confirmed or [...] documented as of this encounter Care Teams Palliative Care Nurse Relationship Specialty Start Date End Date Lior Luz MD PCP - General Internal Medicine 07/19/17 01/16/21 [address] [place] [address] documented as of this encounter
--- OUTSIDE RECORDS SUMMARY | 2021-04-17 03:17 | XMS_ITS | Encounter Summary ---
:1950 Author Organization [facility] [employer] Address [address] [place] [address] Phone Care Team Providers Name Role Phone No Primary Care Provider Unavailable Reason for Visit Auth/Cert Specialty Diagnoses / Procedures Referred By Contact Refer red To Contact Diagnoses colon Procedures COLONOSCOPY Referral ID Status Reason Start Date Expiration Date Visits Requ ested Visits Authorized [id number] 1 1 Encounter Details Date Type Department Care Team Description 05/25/2016 Hospital Encounter SB ENDOSCOPY SERVICE Richard Mcguire M, [address] [facility] [address] [place], [place] [address] [address] [facility] [phone] [place], [place] [id number] (Wo rk) Social History Tobacco Use Types Packs/Day Years Used Date Former Smoker Smokeless Tobacco: Current User Tobacco Cessation: Ready to Quit: No; Co unseling Given: No Comments: Vapes several times a day Alcohol Use Standard Drinks/Week Comments Yes 0 (1 standard drink = 0.6 oz pure alcoho l) 2-3 drinks per month Alcohol Habits Answer Date Recorded How often do you have a drink containing alcohol? Not asked How many drinks containing alcohol do you have on Not asked a typical day when you are drinking? How often do you have six or more drinks on one Not asked occasion? Comment: 2-3 drinks per month 05/23/2016 Sex Assigned at Date Recorded Not on file documented as of this encounter Last Filed Vital Signs Vital Sign Reading Time Taken Comments Blood Pressure 152/100 05/25/2016 12:15 PM PST Pulse 86 05/25/2016 12:15 PM PST Temperature 37 ??C (98.6 ??F) 05/25/2016 12:00 PM PST Respiratory Rate 18 05/25/2016 12:15 PM PST Oxygen Saturation 95% 05/25/2016 12:15 PM PST Inhaled Oxygen Concentration - - Weight 104 kg (230 lb) 05/25/2016 9:52 AM PST Height 175.3 cm (5' 9) 05/25/2016 9:52 AM PST Body Mass Index 33.97 05/25/2016 9:52 AM PST documented in this encounter Discharge Instructions Cindy Lyman RN - 05/25/2016 Images from the original note were not included. Colonoscopy Discharge Instructions ?? A colonoscopy is a procedure that lets physician to look at the inside of your colon (large bowel) for areas that look abnormal. ?? This is done by putting a flexible tube that is about the thickness of your finger into the anus,and putting it slowly into the rectum and colon. ?? This exam looks for growths in your colon, helps find or prevent colon cancer, locates and stops bleeding, and can diagnosis gastrointestinal problems. After the test ?? You may talk about the results with your doctor right away or at a future visit. ?? You may belch to get rid of air that was placed in the body during the exam. ?? You will rest for a time. ?? After the test you will go back to your normal eating and other activities.If your IV sit becomesred, sore, or swollen, apply a warm pack for 15??minutes 4 times a day. Call your doctor if this is not better in day or two. ?? You must have an adult friend or family member to drive you home.?? You may take a taxi only if afriend or family member can ride with you. ?? You may not drive or operate machinery for 24 hours after the exam. ?? Do not drink alcohol or take sleeping medication the day of your exam.If a sample (biopsy) was taken, do not take aspirin or blood thinning medications for 2 weeks. ? Call your doctor if ?? You have abdominal pain or chest pain. ?? You see blood in the toilet. ?? You have a fever of more than 100*F.? documented in this encounter Medications at Time of Discharge Medication Sig Dispensed Refills Start Date End Date levothyroxine (SYNTHROID) 75 Take 75 mcg by 0 MCG tablet mouth daily at 06:00. documented as of this encounter Procedure Notes Richard Stallworth MD - 05/25/2016 11:59 AM PST [facility]#: [id number] [address]#: [id number] [place], [place] [address]LY#: [id number] PRELIMINARY UNTIL SIGNED NAME: DINESH CABRERA : 1950 SEX: M D.P.: Griselda STALLWORTH, RICHARD A.P.: Griselda STALLWORTH JEFFREY PCP : Griselda STALLWORTH JEFFREY OPERATIVE REPORT DATE OF SURGERY:05/25/2016 PREOPERATIVE DIAGNOSIS: POSTOPERATIVE DIAGNOSIS: OPERATION PERFORMED:Screening colonoscopy. SURGEON: Richard Stallworth M.D. SPECIALIST PHYSICIAN:Dawood Cooper M.D., R-3. ANESTHESIA/ANESTHESIOLOGIST:IV Versed and fentanyl. INTRAOPERATIVE FINDINGS: Was a good quality preparation and normal colonoscopy. No pathology noted. Complications none. FINDINGS AND PROCEDURE:After an appropriate time out, the patient had been prepped and draped in a standard sterile surgical fashion, a digital rectal exam was performed that was normal. A well lubricated colonoscope was advanced all the way to the cecum. The quality of the preparation was noted to be good. There was some uncertainty as to whether or notI was in the cecum, I asked one of my colleagues Dr. Deepak Wilkerson to come into the endoscopy suitewho was right down the messina who was kind enough to look around and confirm that were in the cecum. His help was greatly appreciated. The scope was thenslowly withdrawn. We visualized all the mucosa making sure to note that there were no significant abnormalities. We desufflated when possible and the scope was retroflexed in the rectum that was normal. The scope was removed. The patient tolerated the procedure well. I was present during all portions of the cause. ESTIMATED BLOOD LOSS: 1 cc. FLUID REPLACEMENT: Crystalloid. SPECIMENS SENT: None. COMPLICATIONS: None. Griselda STALLWORTH JEFFREY /[id number] JOB:[id number] ID: [id number] CC: Griselda ONTIVEROS, [place] documented in this encounter Plan of Treatment Not on filedocumented as of this encounter Procedures Procedure Name Priority Date/Time Associated Diagnosis Comme nts COLONOSCOPY 05/25/2016 10:15 AM PST documented in this encounter Visit Diagnoses Diagnosis Disease of thyroid gland Unspecified disorder of thyroid documented in this encounter Administered Medications Inactive Administered Medications - up to 3 most recent administrations Medication Order MAR Action Action Date Dose Rate Site sodium chloride 0.9% New Bag 05/25/2016 11:41 AM PST 50 mL/hr 50 mL/hr infusion 50 mL/hr, Intravenous, at 50 mL/hr, Continuous, Starting on Sat05/25/16 at 0949, Pre-procedure New Bag 05/25/2016 10:10 AM PST 50 mL/hr 50 mL/hr documented in this encounter Active and Recently Administered Medications Times are shown in PST. Continuous Medication Order 05/23/2016 05/24/2016 05/25/2016 sodium chloride 0.9% infusion 10 10 (New Bag - Provider: Claudette Jacobs RN)1141 (New Bag - Provider: Hayley Whitley RN) 50 mL/hr, Intravenous, at 50 mL/hr, Cont inuous, Starting Sat05/25/16 at 0949, Pre-procedure PRN Medication Order 05/23/2016 05/24/2016 05/25/2016 fentaNYL (SUBLIMAZE) injection (CANCELED) 1024 (Given - Provider: Hayley Whitley RN)1030 (Given - Provider: Hayley Whitley RN)1035 (Given - Provider: Hayley Whitley, KRIS)1113 (Given - Provider: Hayley Whitley, RN)1122 (Given - Provider: Hayley Whitley, RN) As needed, Starting Sat05/25/16 at 1024, Intra-op 1128 (Given - Provider: Hayley Whitley, KRIS) midazolam (VERSED) injection (CANCELED) 1024 (Given - Provider: Hayley Whitley, KRIS)1030 (Given - Provider: Hayley Whitley, RN)1032 (Given - Provider: Hayley Whitley, RN)1046 (Given - Provider: Hayley Whitley, RN)1101 (Given - Provider: Hayley Whitley, RN) As needed, Starting 05/25/16 at 1024, Intra-op 1121 (Given - Provider: Hayley Whitley RN) documented in this encounter Care Teams Metal Buggy Operator Relationship Specialty Start Date End Date No, Pcp PCP - General 04/16/16 documented as of this encounter
--- OUTSIDE RECORDS SUMMARY | 2021-04-17 03:17 | XMS_ITS | Encounter Summary ---
:1950 Author Organization [facility] [place] [address] Care Team Providers Name Role Phone MD Sukh Primary Care Provider Encounter Details Date Type Department Care Team Description 06/28/2020 Travel Social History Tobacco Use Types Packs/Day [...] last month, have you been in contact Unable to assess 06/28/2020 7:36 AM PST with someone who was confirmed or suspected to have Coronavirus / COVID-19? documented as of this encounter Plan of Treatment Not on filedocumented as of this encounter Goals Goal Patient Goal Associated Recent Patient-Stated? Author Type Problems Progress decrease General Yes bere Abernathy LCSW Note: 1.) Continue paying attention [...] documented as of this encounter Care Teams Material Liaison Relationship Specialty Start Date End Date Lior Luz MD PCP - General Internal Medicine 07/19/17 01/16/21 [address] [place] [address] documented as of this encounter
--- OUTSIDE RECORDS SUMMARY | 2021-04-17 03:17 | XMS_ITS | Encounter Summary ---
:1950 Author Organization [employer] Address [address] [place] [address] Phone Care Team Providers Name Role Phone No Primary Care Provider Unavailable Reason for Visit Auth/Cert Specialty Diagnoses / Procedures Referred By Contact Refer red To Contact Diagnoses colon Procedures COLONOSCOPY Referral ID Status Reason Start Date Expiration Date Visits Requ ested Visits Authorized [id number] 1 1 Encounter Details Date Type Department Care Team Description 05/25/2016 Surgery SB ENDOSCOPY SERVICE Richard Mcguire MD COLONOSCOPY [address] [facility] et [address] [place], [place] [address] [place] [address] [phone] (Wo rk) Social History Tobacco Use Types [...] Sign Reading Time Taken Comments Blood Pressure 138/98 05/25/2016 9:52 AM PST Pulse 78 05/25/2016 10:00 AM PST Temperature 36.7 ??C (98.1 ??F) 05/25/2016 9:52 AM PST Respiratory Rate 15 05/25/2016 10:00 AM PST Oxygen Saturation 98% 05/25/2016 10:00 AM PST Inhaled Oxygen Concentration - - [...] Stallworth MD - 05/25/2016 11:59 AM PST [facility]#: [id number] [address]#: [id number] [place], [place] [address]EB#: [id number] PRELIMINARY UNTIL SIGNED NAME: DINESH CABRERA : 1950 SEX: M Aviva.P.: Griselda STALLWORTH, RICHARD A.P.: Griselda STALLWORTH JEFFREY PCP : Griselda STALLWORTH JEFFREY OPERATIVE REPORT DATE OF SURGERY:05/25/2016 PREOPERATIVE DIAGNOSIS: POSTOPERATIVE DIAGNOSIS: OPERATION PERFORMED:Screening colonoscopy. SURGEON: Richard Stallworth M.D. UI LEAD DEVELOPER:Dawood Cooper M.D., R-3. ANESTHESIA/ANESTHESIOLOGIST:IV Versed and fentanyl. [...] SENT: None. COMPLICATIONS: None. Griselda STALLWORTH JEFFREY /[id number] JOB:[id number] ID: [id number] CC: Griselda ONTIVEROS, [place] documented in this encounter Plan of Treatment Not on filedocumented as of this encounter Procedures Procedure Name Priority Date/Time Associated Diagnosis Comme nts COLONOSCOPY 05/25/2016 10:15 AM PST documented in this encounter Visit Diagnoses Not on filedocumented in this encounter Administered Medications Inactive Administered Medications - up to 3 most recent administrations Medication Order MAR Action Action Date Dose Rate Site fentaNYL (SUBLIMAZE) injection Given 05/25/2016 11:28 AM PST 25 mcg As needed, Starting on Sat05/25/16 at 1024, Intra-op Given 05/25/2016 11:22 AM PST 25 mcg Given 05/25/2016 11:13 AM PST 25 mcg midazolam (VERSED) injection Given 05/25/2016 11:21 AM PST 1 mg As needed, Starting on Sat05/25/16 at 1024, Intra-op Given 05/25/2016 11:01 AM PST 1 mg Given 05/25/2016 10:46 AM PST 1 mg sodium chloride 0.9% infusion New Bag 05/25/2016 11:41 AM PST 50 mL/hr 50 mL/hr 50 mL/hr, Intravenous, at 50 mL/hr, Continuous, Starting on Sat05/25/16 at 0949, Pre-procedure New Bag 05/25/2016 10:10 AM PST 50 mL/hr 50 mL/hr documented in this encounter Active and Recently Administered Medications Times are shown in PST. Continuous Medication Order 05/23/2016 05/24/2016 05/25/2016 sodium chloride 0.9% infusion 10 10 (New Bag - Provider: Claudette Jacobs RN)1141 (New Bag - Provider: Hayley Whitley, RN) 50 mL/hr, Intravenous, at 50 mL/hr, Cont inuous, Starting Sat05/25/16 at 0949, Pre-procedure PRN Medication Order 05/23/2016 05/24/2016 05/25/2016 fentaNYL (SUBLIMAZE) injection (CANCELED) 1024 (Given - Provider: Hayley Whitley RN)1030 (Given - Provider: Hayley Whitley, RN)1035 (Given - Provider: Hayley Whitley, RN)1113 (Given - Provider: Hayley Whitley, KRIS)1122 (Given - Provider: Hayley Whitley RN) As needed, Starting 05/25/16 at 1024, Intra-op 1128 (Given - Provider: Hayley Whitley RN) midazolam (VERSED) injection (CANCELED) 1024 (Given - Provider: Hayley Whitley RN)1030 (Given - Provider: Hayley Whitely RN)1032 (Given - Provider: Hayley Whitley RN)1046 (Given - Provider: Hayley Whitley RN)1101 (Given - Provider: Hayley Whitley RN) As needed, Starting Sat05/25/16 at 1024, Intra-op 1121 (Given - Provider: Hayley Whitley RN) documented in this encounter Care Teams Pearl Cutter Relationship Specialty Start Date End Date No, Pcp PCP - General 04/16/16 documented as of this encounter
--- OUTSIDE RECORDS SUMMARY | 2021-04-17 03:17 | XMS_ITS | Encounter Summary ---
:1950 Author Organization [employer] [facility] Address [address] [place] [address] Phone Care Team Providers Name Role Phone No Primary Care Provider Unavailable Encounter Details Date Type Department Care Team Description 07/29/2017 Lab Interfaced LAB INTERFACED Konrad Lewis, Elevated prostate specific antigen (PSA); Orders ORDERS Nodular prostate without lower urinary t ract symptoms [phone] [facility] [place], [place] [id number] Social History Tobacco Use Types Packs/Day Years Used Date Former Smoker Smokeless Tobacco: Current User Comments: Vapes several times a day Alcohol [...] on file documented as of this encounter Plan of Treatment Scheduled Orders Name Type Priority Associated Diagnoses Order S chedule Tissue Exam Pathology and Routine Elevated prostate 1 Occurre nces starting Cytology specific antigen 07/29/2017 until (PSA) 07/29/2018 Nodular prostate without lower urinary tract symptoms documented as of this encounter Results TISSUE EXAM (07/29/2017 9:47 AM PDT) Pathologist Sig nature Case Report Surgical Pathology-PD[facility] ?Case: [id number] ? [facility]ORE Authorizing Provider: ??Kimani Lewis MD ?Collected: ? 07/29/2017 0947 ? LABORATORY Ordering Location: ? [facility] ? Received: ?07/29/2017 1632 ? Laboratories Main ? Pathologist: ? Enrique Berg MD ? Specimens: ?? A) - Prostate, RB 1 ? B) - Pros carbajal, RLB 1 ? C) - Pros carbajal, RM 1 ? D) - Pros carbajal, RLM 1 ? E) - Pros carbajal, RA 1 ? F) - Pros carbajal, RLA 1 ? G) - Pros carbajal, LB 1 ? H) - Pros carbajal, LLB 1 ? I) - Pros carbajal, LM 1 ? J) - Pros carbajal, LLM 1 ? K) - Pros carbajal, LA 1 ? L) - Pros carbajal, LLA 1 ? CLINICAL HISTORY 12 Samples: PD CORE RB - 1, RLB - 1, RM - 1, RLM - 1, RA - 1, RLA - 1, LB - 1, LLB - 1, LM - 1, LLM - 1, LA - 1, LLA - 1. LABORATORY Time of Biopsy in Formalin:-> 9:45 AM FINAL DIAGNOSIS A) prostate, RB, needle core biopsy: P D CORE Electronically signed --benign prostatic hyperplasia, negative for carcino ma LABORATORY by Enrique Berg MD on 07/30/2017 at B) prostate, RLB, needle core biopsy: 11:57 AM --benign prostatic hyperplasia, negative for carcino ma C) prostate, RM, needle core biopsy: --benign prostatic hyperplasia and atrophy, negative for carcinoma D) prostate, RLM, needle core biopsy: --benign prostatic hyperplasia, negative for carcino ma E) prostate, RA, needle core biopsy: --benign prostatic hyperplasia, negative for carcino ma F) prostate, RLA, needle core biopsy: --benign prostatic hyperplasia, negative for carcino ma G) prostate, LB, needle core biopsy: --benign prostatic hyperplasia, negative for carcino ma H) prostate, LLB, needle core biopsy: --benign prostatic hyperplasia, negative for carcino ma I) prostate, LM, needle core biopsy: --benign prostatic hyperplasia and atrophy, negative for carcinoma J) prostate, LLM, needle core biopsy: --benign prostatic hyperplasia, negative for carcino ma K) prostate, LA, needle core biopsy: --benign prostatic hyperplasia, negative for carcino ma L) prostate, LLA, needle core biopsy: --atrophy, negative for carcinoma GROSS DESCRIPTION Received 12 specimens in quentin león labeled with the patient's name. [facility] Part A, labeled ? RB? is a romo, translucent and cylindrical soft tissue core measuring 1 cm in length and 0.1 cm in width. All submitted in block A1. Part B, labeled ? RLB? is a white, translucent, fragmented, and cylindrical soft tissue core measuring 1 cm in length and 0.1 cm in width. All submitted in block B1. Part C, labeled ? RM? is a white, translucent and cylindrical soft tissue core measuring 0.8 cm in length and 0.1 cm in width. All submitted in block C1. Part D, labeled ? RLM? are 2 white, translucent and cylindrical soft tissue cores measuring up to 0.8 cm in length and averaging 0.1 cm in width. All submitted in block D1. Part E, labeled ? RA? is a white, translucent and cylindrical soft tissue core measuring 0.9 cm in length and 0.1 cm in width. All submitted in block E1. Part F, labeled ? RLA? is a white, translucent and cylindrical soft tissue core measuring 1.2 cm in length and 0.1 cm in width. All submitted in block F1. Part G, labeled ? LB? is a white, translucent and cylindrical soft tissue core measuring 1 cm in length and 0.1 cm in width. All submitted in block G1. Part H, labeled ? LLB? is a white, translucent and cylindrical soft tissue core measuring 1.1 cm in length and 0.1 cm in width. All submitted in block H1. Part I, labeled ? LM? is a romo-white, translucent and cylindrical soft tissue core measuring 1.3 cm in length and 0.1 cm in width. All submitted in block I1. Part J, labeled ? LLM? is a romo-white, translucent, cylindrical, and fragmented soft tissue core measuring 1 cm in length and 0.1 cm in width. All submitted in block J1. Part K, labeled ? LA? is a romo-white, translucent and cylindrical soft tissue core measuring 1.9 cm in length and 0.1 cm in width. All submitted in block A1. Part L, labeled ? LLA? is a white, translucent and cylindrical soft tissue core measuring 1.5 cm in length and 0.1 cm in width. All submitted in block L1.krr Specimen Tissue - Specimen from prostate (specime n) Tissue specimen (specimen) - Specimen fr om prostate (specimen) Tissue specimen (specimen) - Specimen fr om prostate (specimen) Tissue specimen (specimen) - Specimen fr om prostate (specimen) Tissue specimen (specimen) - Specimen fr om prostate (specimen) Tissue specimen (specimen) - Specimen fr om prostate (specimen) Tissue specimen (specimen) - Specimen fr om prostate (specimen) Tissue specimen (specimen) - Specimen fr om prostate (specimen) Tissue specimen (specimen) - Specimen fr om prostate (specimen) Tissue specimen (specimen) - Specimen fr om prostate (specimen) Tissue specimen (specimen) - Specimen fr om prostate (specimen) Tissue specimen (specimen) - Specimen fr om prostate (specimen) Performing Organization Address City/State/[facility] Code [facility] e Number [facility] [address] [place] [address] [place] documented in this encounter Visit Diagnoses Diagnosis Elevated prostate specific antigen (PSA) Nodular prostate without lower urinary t ract symptoms documented in this encounter Care Teams Lumpia Wrapper Maker Relationship Specialty Start Date End Date No, Pcp PCP - General 04/16/16 documented as of this encounter
--- OUTSIDE RECORDS SUMMARY | 2021-04-17 03:17 | XMS_ITS | Encounter Summary ---
:1950 Author Organization [facility] Address [address] [place] [address] Phone Care Team Providers Name Role Phone No Primary Care Provider Unavailable Encounter Details Date Type Department Care Team Description 06/28/2017 Lab Interfaced LAB INTERFACED Konrad Lewis, Elevated prostate Orders ORDERS MD specific antigen [phone] . (PSA) [place] [address] Social History Tobacco Use Types Packs/Day Years [...] Not on filedocumented as of this encounter Results Fluoroquinolone Resistant GNR (06/28/2017 11:05 AM PST) Pathologist Sig nature Culture No fluoroquinolone [facility] resistant Escherichia coli isolated. The absence of suspect colonies does not rule out the presence of fluoroquinolone resistant microorganisms. Specimen Swab - Rectal swab (specimen) Performing Organization Address City/State/ZIP Code Phon e Number [facility] [address] [place] [address] [phone] documented in this encounter Visit Diagnoses Diagnosis Elevated prostate specific antigen (PSA) documented in this encounter Care Teams Emergency Detail Driver Relationship Specialty Start Date End Date No, Pcp PCP - General 04/16/16 documented as of this encounter
--- OUTSIDE RECORDS SUMMARY | 2021-04-17 03:17 | XMS_ITS | Encounter Summary ---
:1950 Author Organization [facility] [place] [address] Care Team Providers Name Role Phone MD Sukh Primary Care Provider Encounter Details Date Type Department Care Team Description 06/13/2020 Travel Social History Tobacco Use Types Packs/Day [...] documented as of this encounter Care Teams Manager Strategic Partnerships Relationship Specialty Start Date End Date Lior Luz MD PCP - General Internal Medicine 07/19/17 01/16/21 [address] [place] [address] documented as of this encounter
--- OUTSIDE RECORDS SUMMARY | 2021-04-17 03:17 | XMS_ITS | Encounter Summary ---
:1950 Author Organization [facility] [place] [address] Care Team Providers Name Role Phone MD Sukh Primary Care Provider Encounter Details Date Type Department Care Team Description 06/14/2020 Travel Social History Tobacco Use Types Packs/Day [...] been in contact with No / Unsure 06/14/2020 8:25 AM PST someone who was confirmed or [...] documented as of this encounter Care Teams Stockroom Clerk Relationship Specialty Start Date End Date Lior Luz MD PCP - General Internal Medicine 07/19/17 01/16/21 [address] [place] [address] documented as of this encounter
--- OUTSIDE RECORDS SUMMARY | 2021-04-17 03:17 | XMS_ITS | Encounter Summary ---
:1950 Author Organization [facility] [place] [address] Care Team Providers Name Role Phone MD Sukh Primary Care Provider Encounter Details Date Type Department Care Team Description 01/06/2020 Travel Social History Tobacco Use Types Packs/Day [...] been in contact with No / Unsure 01/06/2020 10:43 AM PDT someone who was confirmed or suspected to [...] documented as of this encounter Care Teams Recruit Instructor Relationship Specialty Start Date End Date Lior Luz MD PCP - General Internal Medicine 07/19/17 01/16/21 [address] [place] [address] documented as of this encounter
--- OUTSIDE RECORDS SUMMARY | 2021-04-17 03:17 | XMS_ITS | Encounter Summary ---
:1950 Author Organization [facility] [place] [address] Care Team Providers Name Role Phone MD Sukh Primary Care Provider Reason for Visit Reason Comments Hypertension Encounter Details Date Type Department Care Team Description 11/13/2019 [facility] Zhane Smith ea, MD Essential hypertension PRIMARY CARE [address] [place] [phone] Social History Tobacco Use Types Packs/Day Years [...] been in contact with No / Unsure 11/13/2019 7:29 AM PDT someone who was confirmed or suspected to have Coronavirus / COVID-19? documented as of this encounter Progress Notes Jessica Smith MD - 11/13/2019 8:34 AM PDT COVID-19 Pandemic Telehealth Visit NOTE: patient evaluated during the COVID-19 pandemic. Very limited physical services available due to social distancing constraints. Patient visit was conducted via Telephone Only Provider Visit occurred in clinic PCP: Lior Luz MD No chief complaint on file. HPI: 69 year old male called for HTN f/u. Doing well, no complaints today. No headaches, chest pain or vision blurriness. Bored at home. 6 weeks of data: Average BP 133/76 Hr 63 Highest 141/80 HT 69 Low 125/73 HR 53 The 10-year ASCVD risk score (Earleton DC Jr., et al., 2013) is: 31.9% Going for walks occasionally. Could walk more. Finds it hard to go outside with so many people not wearing masks. Assessment/Plan: Problem List Cardiovascular Essential hypertension Current Assessment & Plan Hypertension is improving with treatment. Plan: Regular aerobic exercise Blood pressure will be reassessed at the next regular appointment. Increase Lotrel to 10-40mg Increasing walking 1x more per week Follow up in 6 weeks Next step chlorthalidone Time spent: The below time indicates time I spent interviewing, examining and treating the patient, as well as reviewing the patient's data. This included chart documentation by other providers, x-rays, scans, labs, EKGs, consult reports, case planning with consultants and staff and performing my documentation and/or discussions with patient and/or family involving decision-making. During this time I was immediately available to the patient. [x] 15 minutes [} 25 minutes [] Greater than 35 minutes Counseling time: [x] Greater than 50% of the visit spent counseling. documented in this encounter Miscellaneous Notes Assessment & Plan Note - Jessica Smith MD - 11/13/2019 8:50 AM PDT Associated Problem(s): Essential hypertension Hypertension is improving with treatment. Plan: Regular aerobic exercise Blood pressure will be reassessed at the next regular appointment. Increase Lotrel to 10-40mg Increasing walking 1x more per week Follow up in 6 weeks Next step chlorthalidone documented in this encounter Plan of Treatment [...] as of this encounter Visit Diagnoses Diagnosis Essential hypertension documented in this encounter Additional Health Concerns Assessment Noted Time PHQ-9 Depression Total Score: 0 05/25/2019 10:22 AM PS T documented as of this encounter Care Teams Welding Machine Operator Gas Metal Arc Relationship Specialty Start Date End Date Lior Luz MD PCP - General Internal Medicine 07/19/17 01/16/21 [address] [place] [address] documented as of this encounter
--- OUTSIDE RECORDS SUMMARY | 2021-04-17 03:17 | XMS_ITS | Encounter Summary ---
:1950 Author Organization [facility] [place] [address] Care Team Providers Name Role Phone MD Sukh Primary Care Provider Encounter Details Date Type Department Care Team Description 09/04/2019 Travel Social History Tobacco Use Types Packs/Day [...] you been in contact Unable to assess 09/04/2019 8:20 AM PDT with someone who was confirmed or suspected [...] documented as of this encounter Care Teams Meat Stocker Relationship Specialty Start Date End Date Lior Luz MD PCP - General Internal Medicine 07/19/17 01/16/21 [address] [place] [address] documented as of this encounter
--- OUTSIDE RECORDS SUMMARY | 2021-04-17 03:17 | XMS_ITS | Encounter Summary ---
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 Very limited physical services available due to social distancing constraints. Patient verbally consents to using a telehealth discussion in lieu of a scheduled OV, has not been seen in the past 7 days, and will not be seen in the next 2 days. This service is medically necessary and clinically appropriate to be delivered via a Telephone Only Visit. Patient visit was conducted via Telephone Only Patient Location: Home Provider Location: Visit occurred in clinic Provider Reason for working from home: n/a Time spent on phone with pt: 18min PCP: Lior Luz MD Chief Complaint Patient presents with ??? Telehealth (Audio) re establish 3mo HTN HPI: 70 year old male called to establish care. He is not surprised about his cholesterol results because he doesn't have kitchen. Only uses a microwave oven, typically eating pre-made or frozen foods. Also notes a weight gain over the year. He has not been able to walk as much as he likes 06/21 pandemic. BP numbers: Highest 133/74 HR 58 Lowest 119/69 HR 69 Average 126/71 HR 58 He got his first COVID-19 vaccine. Disoriented for a few hours after but fine now. Patient is moving to [facility] next month. He applied for senior housing in [place] years agoand finally got it. He is moving into a one bedroom apartment. He looks forward to having a kitchenwith the ability to eat health. He also [place] the [place]. Assessment/Plan: Problem List Endocrine Hypothyroidism (Chronic) Overview Current Assessment & Plan TFTs wnl Continue levothyroxine 100mcg daily Other Obesity (Chronic) Overview Current Assessment & Plan Discussed diet and exercise - pt is optimistic that he will be able to change a lot of his lifestyle after this move. Having a kitchen will give him a lot more options Elevated prostate specific antigen (PSA) (Chronic) Overview bx 07/29/17: neg PSA: 6.2 on 04/2016 8.6 04/2017 Current Assessment & Plan PSA 9.9 from 9.[address] Lewis as pt is moving next month Moderate mixed hyperlipidemia not requiring statin therapy Current Assessment & Plan Pt is very motivated to lose weight and change diet with his upcoming move. Although his The 10-year ASCVD risk score (Lio GUANACO Faustin., et al., 2013) is: 30.5%, I do think with aggressive lifestyle changes this could be greatly improved Discussed he will likely need a statin in the future Pt will establish with PCP in [place] documented in this encounter Miscellaneous Notes Assessment & Plan Note - Jessica Smith MD - 06/28/2020 11:10 AM PST Associated Problem(s): Moderate mixed hyperlipidemia not requiring statin therapy Pt is very motivated to lose weight and change diet with his upcoming move. Although his The 10-year ASCVD risk score (Lio BLANC Jr., et al., 2013) is: 30.5%, I do think with aggressive lifestyle changes this could be greatly improved Discussed he will likely need a statin in the future Pt will establish with PCP in [place] ssessment & Plan Note - Jessica Smith MD - 06/28/2020 11:09 AM PSTAssociated Problem(s): Obesity Discussed diet and exercise - pt is optimistic that he will be able to change a lot of his lifestyleafter this move. Having a kitchen will give him a lot more options ssessment & Plan Note - Jessica Smith MD - 06/28/2020 11:07 AM PSTAssociated Problem(s): Hypothyroidism TFTs wnl Continue levothyroxine 100mcg daily ssessment & Plan Note - Jessica Smith MD - 06/28/2020 11:07 AM PSTAssociated Problem(s): Elevated prostate specific antigen (PSA) PSA 9.9 from 9.[address] Lewis as pt is moving next month documented in this encounter Plan of Treatment Not on filedocumented as of this encounter Goals Goal Patient Goal Associated Recent Patient-Stated? Author Type Problems Progress decrease General Yes Josemanuel, anxiety DARWIN DeutschW Note: 1.) Continue paying attention to your [...] as of this encounter Visit Diagnoses Diagnosis Elevated prostate specific antigen (PSA) Other specified hypothyroidism Class 2 obesity without serious comorbid ity with body mass index (BMI) of 37.0 to 37.9 in adult, unspecified obesity type Moderate mixed hyperlipidemia not requir ing statin therapy documented in this encounter Additional Health Concerns Assessment Noted Time PHQ-9 Depression Total Score: 0 05/25/2019 10:22 AM PS T documented as of this encounter Care Teams Surveillance Technician Relationship Specialty Start Date End Date Lior Luz MD PCP - General Internal Medicine 07/19/17 01/16/21 [facility] [place] [address] documented as of this encounter
--- OUTSIDE RECORDS SUMMARY | 2021-04-17 03:17 | XMS_ITS | Encounter Summary ---
:1950 Author Organization [facility] [place] [address] Care Team Providers Name Role Phone MD Sukh Primary Care Provider Encounter Details Date Type Department Care Team Description 11/13/2019 Travel Social History Tobacco Use Types Packs/Day [...] documented as of this encounter Care Teams Wink Cutter Operator Relationship Specialty Start Date End Date Lior Luz MD PCP - General Internal Medicine 07/19/17 01/16/21 [address] [place] [address] documented as of this encounter
--- OUTSIDE RECORDS SUMMARY | 2021-04-17 03:17 | XMS_ITS | Encounter Summary ---
:1950 Author Organization [facility] [place] [address] Care Team Providers Name Role Phone MD Sukh Primary Care Provider Reason for Visit Reason Comments Hypertension Encounter Details Date Type Department Care Team Description 09/04/2019 Office Visit [facility] Zhane Smith ea, MD Essential hypertension PRIMARY CARE [address] [place] [phone] Social History Tobacco Use Types Packs/Day Years [...] encounter Progress Notes Jessica Smith MD - 09/04/2019 9:41 AM PDT COVID-19 Pandemic Telephone Visit NOTE: patient evaluated during the COVID-19 pandemic. Very limited physical services available due to social distancing constraints. PCP: Lior Luz MD Chief Complaint Patient presents with ??? Hypertension HPI: 69 year old male called for HTN f/u. Patient is doing well, no acute complaints. Complete self isolating at home. He has been taking Lotrel daily, no side effects reported. He checked his BP at [facility] in anticipation of today's visit - BP 168/75, HR 75. He is trying to get outside for a walk every day or so. Objective: Measure BP yesterday BP 168/92 HR 75 Assessment/Plan: Problem List Cardiovascular Essential hypertension Current Assessment & Plan Hypertension is unchanged. Plan: increase lotrel to 2 tab daily - amlodipine 10mg- benazepril 20mg daily Blood pressure will be reassessed in 4 weeks. Would consider increase lotrel to amlodipine 10mg- benazepril 40mg next visit or adding chlorthalidone COVID-19 Pandemic Counseling - Education provided to the patient regarding COVID-19 hygiene, social distancing, and other precautions, as according to latest CDC guidance. documented in this encounter Miscellaneous Notes Assessment & Plan Note - Jessica Smith MD - 09/04/2019 11:44 AM PDT Associated Problem(s): Essential hypertension Hypertension is unchanged. Plan: increase lotrel to 2 tab daily - amlodipine 10mg- benazepril 20mg daily Blood pressure will be reassessed in 4 weeks. Would consider increase lotrel to amlodipine 10mg- benazepril 40mg next visit or adding chlorthalidone documented in this encounter Plan of [...] documented as of this encounter Care Teams High School Director Relationship Specialty Start Date End Date Lior Luz MD PCP - General Internal Medicine 07/19/17 01/16/21 [facility] [place] [phone] documented as of this encounter
--- OUTSIDE RECORDS SUMMARY | 2021-04-17 03:17 | XMS_ITS | Encounter Summary ---
:1950 Author Organization [facility] [place] [address] Care Team Providers Name Role Phone MD Sukh Primary Care Provider Reason for Visit Reason Comments Follow Up Encounter Details Date Type Department Care Team Description 03/31/2020 Office Visit [facility] Jessica Doll, Other specified hypothyroidism (Primary Dx); BULKER Essential hypertension; [address] Sleep apnea , unspecified type; [place] Class 2 obesity without serious comorbid ity with body mass index (BMI) of 37.0 to 37.9 in adult, unspecified obesity type; [facility], Elevated prostate specific antigen (PSA); [phone] [place] [phone] Abnormal finding of blood chemistry, uns pecified [phone] Social History Tobacco Use Types Packs/Day Years [...] encounter Progress Notes Jessica Smith MD - 03/31/2020 1:33 PM PST COVID-19 Pandemic Telehealth Visit NOTE: patient [...] Provider Reason for working from home: n/a PCP: Lior Luz MD No chief complaint on file. HPI: 70 year old male called for 3 mo f/u HTN. He is doing well today no complaints. Blood pressure values: Lowest: 123/64 HR 62 Highest: 134/71 (outlier) while watching the news. Average 127/70 Vertigo has improved, no more meclizine. He has been getting out more and walking, working on his outdoors. He has never had a flu shot. Assessment/Plan: Problem List None Time spent: The below time indicates time [...] Plan Note - Jessica Smith MD - 03/31/2020 5:21 PM PST Associated Problem(s): Essential hypertension Hypertension is well managed at this time. Plan: Continue current treatment regimen and Regular aerobic exercise Blood pressure will be reassessed in 3 months. documented in this encounter Plan of Treatment [...] per day. documented as of this encounter Results PROSTATE SPECIFIC ANTIGEN (PSA); TOTAL (06/14/2020 8:48 AM PST) athologist Signature PSA, PROSTATIC 9.9 (H) LESS THAN [place] SPECIFIC AG 4 NG/ML [facility] CLINICAL LAB Comment: THE TOTAL PSA IMMUNOASSAY IS A SCREENING AID IN THE DETECTION OF PROSTATE CANCER IN CONJ UNCTION WITH ANGELINA AND OTHER DIAGNOSTIC FINDINGS. Specimen Anatomical Collection Method Collection Time Receive d Time (Source) Location / / Volume Laterality BLOOD Blood / Unknown 06/14/2020 8:48 06/14/19 21 AM PST 8:51 AM PST Narrative [facility] CLINICAL LAB - 05/21 10:16 AM PST NON-FASTING Jessica Smith MD LAB - BLOOD DRAW Performing Organization Address City/State/ZIP Code Phon e Number [facility] [address] [place] [address] CLINICAL LAB [place] [facility] MD THYROID STIMULATING HORMONE (TSH) (06/14/2020 8:48 AM PST) athologist Signature TSH, ULTRA 1.460 0.55 - [place] SENS. 4.78 [facility] uIU/ML CLINICAL LAB Comment: ?REFERENCE RAN GE NOT AVAILABLE ?FOR AGES: NEW BORN TO 23 MONTHS. Specimen Anatomical Collection Method Collection Time Receive d Time (Source) Location / / Volume Laterality BLOOD Blood / Unknown 06/14/2020 8:48 06/14/19 21 AM PST 8:51 AM PST Narrative [facility] CLINICAL LAB - 05/21 10:16 AM PST NON-FASTING Jessica Smith MD LAB - BLOOD DRAW Performing Organization Address City/State/ZIP Code Phon e Number [facility] [address] [place] [address] CLINICAL LAB [place] [facility] 3, MD CBC WITH AUTO DIFF (06/14/2020 8:48 AM PST) [facility] Method Time Signature WBC 9.1 4.5 - 10.0 [facility] CLINICAL LAB RBC 4.79 4.40 - [place] 6.00 M/uL [facility] CLINICAL LAB HEMOGLOBIN 15.2 14.5 - [place] 17.0 G/DL [facility] CLINICAL LAB HEMATOCRIT 43.9 42.0 - [place] 54.0 % [facility] CLINICAL LAB MCV 91.7 82.0 - [place] 99.0 [facility] CLINICAL LAB MCH 31.8 26.0 - [place] 32.0 PG [facility] CLINICAL LAB MCHC 34.7 31.0 - [place] 36.0 G/DL [facility] CLINICAL LAB RDW 12.6 11.5 - [place] 15.0 % [facility] CLINICAL LAB PLATELET COUNT 183 150 - 450 [facility] LAB MPV 10.5 (H) 7.4 - 10.4 [facility] CLINICAL LAB NEUTROPHILS 70.4 (H) 50.0 - [place] 70.0 % [facility] LAB LYMPHOCYTES 20.4 (L) 25.0 - [place] 45.0 [facility] CLINICAL LAB MONOCYTES 7.8 1.0 - 12.0 [facility] CLINICAL LAB EOSINOPHILS 1.1 0.0 - 6.0 [facility] CLINICAL LAB BASOPHILS 0.3 0.0 - 2.0 [facility] CLINICAL LAB ABS. NEUTROPHILS 6.5 1.4 - 6.5 [facility] CLINICAL LAB ABS. LYMPHOCYTES 1.8 1.2 - 3.4 [facility] LAB ABS. MONOCYTES 0.7 (H) 0.1 - 0.6 [facility] LAB ABS. EOSINOPHILS 0.1 0.0 - 0.4 [facility] CLINICAL LAB ABS. BASOPHILS 0.0 0.0 - 0.2 [place] [facility] CLINICAL LAB Comment: Specimen Anatomical Collection Method Collection Time Receive d Time (Source) Location / / Volume Laterality BLOOD Blood / Unknown 06/14/2020 8:48 06/14/19 21 AM PST 8:51 AM PST Narrative [facility] CLINICAL LAB - 05/21 10:31 AM PST NON-FASTING Jessica Smith MD LAB - BLOOD DRAW Performing Organization Address City/State/ZIP Code Phon e Number [facility] [address] [place] [address] CLINICAL LAB [place] BL FL HEMOGLOBIN, GLYCOSYLATED (A1C) (06/14/2020 8:48 AM PST) P athologist Signature GLYCOSYLATED HGB 5.7 <6.0 % [place] (A1C) [facility] CLINICAL LAB Comment: THE [employer] SUGGES [place] INTERPRETIVE GUIDELINES FOR NON- ADULTS HGB A1C % ? GLUCOSE C ONTROL INDEX GREATER THAN 8.0 ? ADDITIONAL ACT ION SUGGESTED LESS THAN 7.0 ?GOAL LESS THAN 6.0 ?NORMAL Specimen Anatomical Collection Method Collection Time Receive d Time (Source) Location / / Volume Laterality BLOOD Blood / Unknown 06/14/2020 8:48 06/14/19 21 AM PST 8:51 AM PST Narrative [facility] CLINICAL LAB - 05/21 5:07 PM PST NON-FASTING Jessica Smith MD LAB - BLOOD DRAW Performing Organization Address [facility]/ZIP [facility] Phon e Number [address] [address] CLINICAL LAB [place] BLDG 3, 1ST FL LIPID PANEL (06/14/2020 8:48 AM PST) Patholo gist Method Time Signature CHOLESTEROL 174 <200 MG/DL [facility] CLINICAL LAB TRIGLYCERIDE 194 (H) <150 MG/DL [facility] CLINICAL LAB HDL CHOLESTEROL 33 (L) >40 MG/DL [facility] CLINICAL LAB LDL CHOLESTEROL, 132 (H) <100 MG/DL [facility] CLINICAL LAB Comment: PLEASE NOTE NEW REFERENCE RANGES BASED ON ATP-III GUIDELINES (NIH PUBLICATION NO. [id number], REV 2004) Specimen Anatomical Collection Method Collection Time Receive d Time (Source) Location / / Volume Laterality BLOOD Blood / Unknown 06/14/2020 8:48 06/14/19 21 AM PST 8:51 AM PST Narrative [facility] CLINICAL LAB - 05/21 10:37 AM PST NON-FASTING Jessica Smith MD LAB - BLOOD DRAW Performing Organization Address [facility] Phon e Number [address] [address] CLINICAL LAB [place] [address], [place] COMPRE METAB PANEL (06/14/2020 8:48 AM PST) P athologist Signature SODIUM 138 136 - 145 [place] MEQ/L [facility] CLINICAL LAB POTASSIUM 4.5 3.5 - 5.1 [place] MEQ/L [facility] CLINICAL LAB CHLORIDE 102 98 - 107 [place] MEQ/L [facility] CLINICAL LAB CARBON DIOXIDE 28 21 - 31 [place] MEQ/L [facility] CLINICAL LAB ANION GAP 12.5 10.0 - [place] 20.0 MEQ/L [facility] CLINICAL LAB UREA NITROGEN 21 7 - 25 [place] MG/DL [facility] CLINICAL LAB CREATININE, 0.99 0.60 - [place] SERUM 1.30 MG/DL [facility] CLINICAL LAB GFR ESTIMATE >60 >OR = 60 [place] mL/min [facility] CLINICAL LAB Comment: ? GFR REFERENC E RANGE: >OR=60 mL/min/1.73m2 ? IF RESULT OF GFR IS <60 AND THE PATIENT IS ? AMER ICAN, MULTIPLY RESULT BY 1.210 ? CALCULATION UPDATED 01/20/2010 ? REFERENCE: N KDEP 11/16/2009 GLUCOSE 97 FAST < 100 MG/DL [facility] CLINICAL LAB CALCIUM 9.6 8.2 - 10.0 MG/DL [facility] CLINICAL LAB BILIRUBIN, TOTAL 0.6 0.3 - 1.0 MG/DL [facility] CLINICAL LAB ALKALINE PHOSPHATASE 94 40 - 115 U/L [facility] CLINICAL LAB SGPT/ALT 26 7 - 52 U/L [place] COUNT Y CLINICAL LAB Comment: PATIENTS TREATED WITH SULFASALAZINE MAY GENERATE A FALSE LOW RESULT FOR ALT SGOT/AST 20 13 - 39 U/L [facility] CLINICAL LAB TOTAL PROTEIN 7.3 6.4 - 8.9 G/DL [facility] CLINICAL LAB ALBUMIN 4.6 3.5 - 5.7 G/DL [facility] CLINICAL LAB GLOBULIN 2.7 2.0 - 4.1 G/DL [facility] CLINICAL LAB A/G RATIO 1.7 1.1 - 2.2 [facility] CLINICAL LAB Specimen Anatomical Collection Method Collection Time Receive d Time (Source) Location / / Volume Laterality BLOOD Blood / Unknown 06/14/2020 8:48 06/14/19 21 AM PST 8:51 AM PST Narrative [facility] CLINICAL LAB - 05/21 10:37 AM PST NON-FASTING Jessica Smith MD LAB - BLOOD DRAW Performing Organization Address City/State/ZIP Code Phon e Number [facility] [address] [place] [address] [facility]ICAL [facility] [place] documented in this encounter Visit Diagnoses Diagnosis Other specified hypothyroidism - Primary Essential hypertension Sleep apnea, unspecified type Class 2 obesity without serious comorbid ity with body mass index (BMI) of 37.0 to 37.9 in adult, unspecified obesity type Elevated prostate specific antigen (PSA) Abnormal finding of blood chemistry, uns pecified documented in this encounter Additional Health Concerns Assessment Noted Time PHQ-9 Depression Total Score: 0 05/25/2019 10:22 AM PS T documented as of this encounter Care Teams Yardage Control Operator Forming Relationship Specialty Start Date End Date Lior Luz MD PCP - General Internal Medicine 07/19/17 01/16/21 [address] [place] [address] documented as of this encounter
--- OUTSIDE RECORDS SUMMARY | 2021-04-17 03:17 | XMS_ITS | Encounter Summary ---
:1950 Author Organization [facility] Address [address] [place] [address] Phone Care Team Providers Name Role Phone No Primary Care Provider Unavailable Encounter Details Date Type Department Care Team Description 09/30/2017 Lab Interfaced LAB INTERFACED Konrad Lewis, Elevated prostate Orders ORDERS MD specific antigen [phone] (PSA) [place] [address] Social History Tobacco Use Types Packs/Day Years [...] Type Priority Associated Diagnoses Order S chedule PSA Lab Routine Elevated prostate specific a ntigen Expected: 10/30/2017, Expires: (PSA) 07/30/2018 documented as of this encounter Visit Diagnoses Diagnosis Elevated prostate specific antigen (PSA) documented in this encounter Care Teams Senior Analyst Developer Relationship Specialty Start Date End Date No, Pcp PCP - General 04/16/16 documented as of this encounter
--- OUTSIDE RECORDS SUMMARY | 2021-04-17 03:17 | XMS_ITS | Encounter Summary ---
:1950 Author Organization [facility] [place] [address] Care Team Providers Name Role Phone MD Sukh Primary Care Provider Reason for Visit Reason Comments Hypertension Encounter Details Date Type Department Care Team Description 10/02/2019 [facility] Zhane Smith ea, MD Essential hypertension PRIMARY CARE [address] [place] [phone] Social History Tobacco Use Types Packs/Day Years [...] been in contact with No / Unsure 09/07/2019 10:16 AM PDT someone who was confirmed or suspected to have Coronavirus / COVID-19? documented as of this encounter Progress Notes Jesisca Smith MD - 10/02/2019 8:13 AM PDT COVID-19 Pandemic Telephone Visit NOTE: patient evaluated during the COVID-19 pandemic. Very limited physical services available due to social distancing constraints. PCP: Lior Luz MD No chief complaint on file. HPI: 69 year old male called for HTN [facility] has stopped allowing the use of BP machines so he bought his own. He is checking blood pressure daily and has 8 days of data Average 134/75 HR 65 Highest 142/77 Lowest 113/74 Eating less salt Walking a couple times a week but is afraid of social contact. He is taking 2 lotrel daily and tolerating (total amlodipine 10mg - benazepril 20mg daily). Assessment/Plan: Problem List Cardiovascular Essential hypertension Current Assessment & Plan Hypertension is improving with treatment. Plan: Continue current treatment regimen, Dietary sodium restriction and Regular aerobic exercise Blood pressure will be reassessed in 6 weeks. COVID-19 Pandemic Counseling - Education provided to the patient regarding COVID-19 hygiene, social distancing, and other precautions, as according to latest CDC guidance. Time spent: The below time indicates time [...] Plan Note - Jessica Smith MD - 10/02/2019 9:41 AM PDT Associated Problem(s): Essential hypertension Hypertension is improving with treatment. Plan: Continue current treatment regimen, Dietary sodium restriction and Regular aerobic exercise Blood pressure will be reassessed in 6 weeks. documented in this encounter Plan of Treatment [...] documented as of this encounter Care Teams Sales And Merchandising Associate Relationship Specialty Start Date End Date Lior Luz MD PCP - General Internal Medicine 07/19/17 01/16/21 [facility] [place] [address] documented as of this encounter
--- OUTSIDE RECORDS SUMMARY | 2021-04-17 03:17 | XMS_ITS | Encounter Summary ---
:1950 Author Organization [facility] [place] [address] Care Team Providers Name Role Phone MD Sukh Primary Care Provider Reason for Referral Otolaryngology (Routine) - Closed Specialty Diagnoses / Procedures Referred By Contact Refer red To Contact Ent-Otolaryngology Diagnoses Nasal sinus congestion Jessica Smith MD Golgert, Rebecca D [address] [place] [facility] [address] [place] [phone] Fax: Referral ID Status Reason Start Date Expiration Visits Visits Date Requested Authorized [id number] Closed Continuity of 12/25/2019 12/24/2020 2 2 Care Reason for Visit Reason Comments Dizziness Encounter Details Date Type Department Care Team Description 12/[facility] Nasal sinus congestion (Primary Dx); PRIMARY CARE [address] Essential hypertension; [address] [place] Benign paroxysmal positional vertigo due to bilateral [place] [phone] Social History Tobacco Use Types Packs/Day Years [...] been in contact with No / Unsure 12/25/2019 7:49 AM PDT someone who was confirmed or suspected to have Coronavirus / COVID-19? documented as of this encounter Progress Notes Jessica Smith MD - 12/25/2019 8:31 AM PDT COVID-19 Pandemic Telehealth Visit NOTE: patient evaluated during the COVID-19 pandemic. Very limited physical services available due to social distancing constraints. Patient verbally consents to using telephone discussion in lieu of ascheduled OV, has not been seen in the past 7 days, and will not be seen in the next 2 days. This service is medically necessary and clinically appropriate to be delivered via telephone. Patient visit was conducted via Telephone Only Provider Visit occurred in clinic PCP: Lior Luz MD Chief Complaint Patient presents with ??? Dizziness HPI: 69 year old male called for 6 week f/u HTN. He had been having problems with the inner ear. Previously had an MRI for stroke in [place], negative. Tried allergy medications that put him to sleep. Severe dizziness with movement. Both side effected. The episodes come and go, always triggered by head movement. In the past Meclizine was very helpful. He had also previously been told about the josé miguel maneuvers. BP 134/71 HR 58 Yesterday Low BP 119/ HR 96 Average over 6 weeks : 124/68 HR 62 He was supposed to follow up with Dr. Nye in July for Chronic Sinusitis but everything was cancelled due to COVID-10. HE would like to bertrand thomas. Assessment/Plan: Problem List Cardiovascular Essential hypertension Current Assessment & Plan Hypertension is improving with treatment. Plan: Continue current treatment regimen Blood pressure will be reassessed in 3 months. Continue Lotrel 10-40mg daily Pt will call if SBP <120 or light headed EENT Nasal sinus congestion - Primary Relevant Orders REFERRAL TO EAR, NOSE AND THROAT Benign paroxysmal positional vertigo due to bilateral vestibular disorder Current Assessment & Plan Refill Meclizine Recommend josé miguel maneuvers, pt will look up Time spent: The below time indicates time [...] Plan Note - Jessica Smith MD - 12/25/2019 8:52 AM PDT Associated Problem(s): Benign paroxysmal positional vertigo due to bilateral vestibular disorder Refill Meclizine Recommend josé miguel maneuvers, pt will look up ssessment & Plan Note - Jessica Smith MD - 12/25/2019 8:44 AM PDTAssociated Problem(s): Essential hypertension Hypertension is improving with treatment. Plan: Continue current treatment regimen Blood pressure will be reassessed in 3 months. Continue Lotrel 10-40mg daily Pt will call if SBP <120 or light headed documented in this encounter Plan of Treatment Scheduled Referrals Name Type Priority Associated Diagnoses Order S chedule REFERRAL TO EAR, NOSE Referral Routine Nasal sinus congest ion Ordered: 12/25/2019 AND THROAT documented as of this encounter Goals Goal Patient [...] as of this encounter Visit Diagnoses Diagnosis Nasal sinus congestion - Primary Other diseases of nasal cavity and sinus es Essential hypertension Benign paroxysmal positional vertigo due to bilateral vestibular disorder documented in this encounter Additional Health Concerns Assessment Noted Time PHQ-9 Depression Total Score: 0 05/25/2019 10:22 AM PS T documented as of this encounter Care Teams Grain Shipper Relationship Specialty Start Date End Date Lior Luz MD PCP - General Internal Medicine 07/19/17 01/16/21 [address] [place] [address] documented as of this encounter
--- OUTSIDE RECORDS SUMMARY | 2021-04-17 03:18 | XMS_ITS | Encounter Summary ---
:1950 Author Organization [facility] [place] [address] Care Team Providers Name Role Phone MD Sukh Primary Care Provider Reason for Visit Reason Comments Behavioral Health Problem Encounter Details Date Type Department Care Team Description 06/29/2019 Behavioral Health [facility] [place] [facility] [place] Adjustme nt disorder Visit AMANDA GABBY with anxious mood - [address] Moderate (P rimary [place] Dx) [facility] [address] [place] [address] [phone] Social History Tobacco Use Types Packs/Day Years [...] Date Recorded Male 07/19/2017 10:24 AM PST documented as of this encounter Patient Instructions Patient InstructionsLa Nena Abernathy LCSW - 06/29/2019 8:30 AM PST documented in this encounter Progress Notes La Nena Abernathy LCSW - 06/29/2019 8:16 AM PST Dinesh Rodriguez is a 69 year old male patient of Lior Luz MD who presents for a follow up visit for symptoms of adjustment d/o. Current symptoms include: Patient reports the following symptoms: nervousness and frustration. Symptoms which worsened: None as per pt. Symptoms which improved: Pt reported significantly decreased anxiety and improved mood. Patient's subjective view: Pt reported feeling much better emotionally, feels he has bounced back and recovered from the end of his relationship with ex- girlfriend quicker than in previous relationships. Pt reports he feels he's coping with physical changes, on blood pressure meds now, and will see Dr. Luz in 3 weeks, doesn't like taking pills. Pt reports feeling less anxious, feels more optimistic, moving forward, exploring options, and has places to go as per pt. PHQ9 Score: PHQ-9 Total Score (Auto Calculated) 0 at 05/25/2019 10:22 AM PHQ-9 Total Score (Manual Entry) 0 at 05/25/2019 10:22 AM PHQ9 Severity:0-4: Normal PHQ9 Plan: 0-4: No action Required ELIOT 7 Score: 03/19/2019 8:32 AM Eliot-7 Total (!) 14 moderate anxiety. Coping skills: coping thoughts, walking daily. MENTAL STATUS EXAM - (WNL=Within Normal Limits) Appearance: WNL Body Movement: normal Behavior: cooperative Speech: WNL Emotional State/Mood: WNL Emotional State/Affect: WNL, consistent to mood Thought Content: WNL Thought Process: WNL Intellectual Functioning: normal Orientation: WNL Sensorium/Cognition/Memory: WNL Insight: WNL Judgment/Impaired Ability to Make Reasonable Decisions: WNL Assessment: It appears pt has been experiencing an adjustment d/o with anxiety 2ndary to end of skilled nursing relationship with girlfriend, and it appears pt mood has improved significantly as per pt selfreport and brighter affect. Intervention: This handbook writer provided active listening, support, and validation of feelings. This handbook writer provided positive feedback and encouragement for goals met and efforts made to work on shifting thoughts and increasing physical exercise. This handbook writer discussed termination again, and pt in agreement with this session as last session. Progress on goals: Pt reported meeting goals and continuing to work on them. Patient Response: receptive and appreciative. Plan is for pt to contact this handbook writer if further services are needed. documented in this encounter Plan of Treatment [...] as of this encounter Visit Diagnoses Diagnosis Adjustment disorder with anxious mood - Moderate - Primary Adjustment disorder with anxiety documented in this encounter Additional Health Concerns Assessment Noted Time PHQ-9 Depression Total Score: 0 05/25/2019 10:22 AM PS T documented as of this encounter Care Teams Long Distance Operator Relationship Specialty Start Date End Date Lior Luz MD PCP - General Internal Medicine 07/19/17 01/16/21 [facility] [place] [phone] documented as of this encounter
--- OUTSIDE RECORDS SUMMARY | 2021-04-17 03:18 | XMS_ITS | Encounter Summary ---
:1950 Author Organization [facility] [place] [address] Care Team Providers Name Role Phone MD Sukh Primary Care Provider Reason for Referral Otolaryngology (Routine) - Closed Specialty Diagnoses / Procedures Referred By Contact Refer red To Contact Ent-Otolaryngology Diagnoses Nasal sinus congestion Lior Luz MD Golgert, Rebecca D [address] [facility] [address] [place] [phone] Fax: Referral ID Status Reason Start Date Expiration Visits Visits Date Requested Authorized [id number] Closed Continuity of 05/25/2019 05/24/2020 2 2 Care Question Answer What is your specific consult question for the chronic ear pain and sinusitis specialist? 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) [address] [place] [address] [place], [place] [address] [place], [place] [phone] Social History Tobacco Use Types Packs/Day Years [...] AM PST documented as of this encounter Last Filed Vital Signs Vital Sign Reading Time Taken Comments Blood Pressure 187/104 05/25/2019 10:23 AM PST Pulse 59 05/25/2019 10:23 AM PST Temperature 36.1 ??C (97 ??F) 05/25/2019 10:23 AM PST Respiratory Rate 17 05/25/2019 10:23 AM PST Oxygen Saturation 99% 05/25/2019 10:23 AM PST Inhaled Oxygen Concentration - - Weight 111.6 kg (246 lb) 05/25/2019 10:23 AM PST Height 175.3 cm (5' 9) 05/25/2019 10:23 AM PST Body Mass Index 36.33 05/25/2019 10:23 AM PST documented in this encounter Progress Notes Lior Luz MD - 05/25/2019 10:37 AM PST CHIEF COMPLAINT Follow Up (3 mo f/u BP check ) HISTORY OF PRESENT ILLNESS Dinesh Rodriguez is a 69 year old male who comes to clinic today for Follow Up (3 mo f/u BP check ) Blood pressure has been creeping up over the past year. He needs to start anti hypertensive medication and we will start Amlodipine. He is using CPAP every night. His thyroid is well supplemented. He continues to have ear discomfort and nasal clear discharge, not changed with flonase and Anti-histamines. He needs a ENT consultation. PHYSICAL EXAM VS: 05/25/2019 10:23 AM BP (!) 187/104 Weight 246 lb (111.6 kg) General: well developed, well nourished and well hydrated in no acute distress Head: normocephalic and atraumatic Eyes: EOMI, PERRL, cunjunctivae clear Neck: supple, FROM Extremities: no clubbing, cyanosis or edema Neurological: no focal deficits Psychological: A&Ox3, normal mood and affect ASSESSMENT/PLAN Follow Up (3 mo f/u BP check ) See Dr. Nye for consult. Start Amlodipine 5 mg one daily for blood pressure control. See Dr. Luz in 4 weeks for blood pressure check documented in this encounter Plan of Treatment Scheduled Referrals Name Type Priority Associated Diagnoses Order S chedule REFERRAL TO EAR, NOSE Referral Routine Nasal sinus congest ion Ordered: 05/25/2019 AND THROAT documented as of this encounter [...] diseases of nasal cavity and sinus es documented in this encounter Additional Health Concerns Assessment Noted Time PHQ-9 Depression Total Score: 0 05/25/2019 10:22 AM PS T documented as of this encounter Care Teams Therapeutic Support Staff Relationship Specialty Start Date End Date Lior Luz MD PCP - General Internal Medicine 07/19/17 01/16/21 [facility] [address] documented as of this encounter
--- OUTSIDE RECORDS SUMMARY | 2021-04-17 03:18 | XMS_ITS | Encounter Summary ---
:1950 Author Organization [facility] [place] [address] Care Team Providers Name Role Phone MD Sukh Primary Care Provider Reason for Visit Reason Comments Lab Result Encounter Details Date Type Department Care Team Description 12/03/[address] 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 Other specified hypothyroidism; [address] [place] [address] Elevated prostate specific a ntigen (PSA) [place] [address] [place], [place] [phone] Social History Tobacco Use Types Packs/Day Years [...] Sign Reading Time Taken Comments Blood Pressure 153/79 12/03/2018 9:03 AM PDT Pulse 71 12/03/2018 9:03 AM PDT Temperature 35.9 ??C (96.7 ??F) 12/03/2018 9:03 AM PDT Respiratory Rate 14 12/03/2018 9:03 AM PDT Oxygen Saturation 97% 12/03/2018 9:03 AM PDT Inhaled Oxygen Concentration - - Weight 114.8 kg (253 lb) 12/03/2018 9:03 AM PDT Height 175.3 cm (5' 9) 12/03/2018 9:03 AM PDT Body Mass Index 37.36 12/03/2018 9:03 AM PDT documented in this encounter Progress Notes Lior Luz MD - 12/03/2018 9:20 AM PDT CHIEF COMPLAINT Lab Result HISTORY OF PRESENT ILLNESS Dinesh Rodriguez is a 68 year old male who comes to clinic today for Lab Result He had to be hospitalized while visiting in [place] for viral labyrinthitis. He got good results with Meclizine. He had an extensive ER workup including MRI brain and EKG which were normal and normall lab. He has felt better since. He continued the synthroid 100 mcg daily. The pSA slightly higher at 9.3 from 7.9. psrostate bx in 07/29/2017 were non malignant. He has a slowed flow. But no nocturia as long as he wears the CPAP. PHYSICAL EXAM VS: 12/03/2018 9:03 AM BP 153/79 Weight 253 lb (114.8 kg) General: well developed, well nourished and well hydrated in no acute distress Head: normocephalic and atraumatic Eyes: EOMI, PERRL, cunjunctivae clear Neck: supple, FROM EARS: right opaque TM and erythn=corry Lungs: good inspiratory effort, clear to auscultation Heart: regular rate and rhythm, no rub, gallops or murmur Abdomen: soft, non tender, no masses or organomegaly, no CVAT Extremities: no clubbing, cyanosis or edema Neurological: no focal deficits Psychological: A&Ox3, normal mood and affect SKIN: SK on back ASSESSMENT/PLAN Lab Result use ear drops 3x daily for a few days. Continue current medications. See Dr. Luz in 12 weeks for pneumonia and flu shots. documented in this encounter Plan of Treatment Not on filedocumented as of this encounter Visit Diagnoses Diagnosis Malignant otitis externa, unspecified ch ronicity, unspecified laterality - Primary Other specified hypothyroidism Elevated prostate specific antigen (PSA) documented in this encounter Care Teams Outdoor Power Equipment Mechanic Relationship Specialty Start Date End Date Lior Luz MD PCP - General Internal Medicine 07/19/17 01/16/21 [facility] [place] [address] documented as of this encounter
--- OUTSIDE RECORDS SUMMARY | 2021-04-17 03:18 | XMS_ITS | Encounter Summary ---
:1950 Author Organization [facility] [place] [address] Care Team Providers Name Role Phone MD Sukh Primary Care Provider Encounter Details Date Type Department Care Team Description 06/16/2019 [facility] La Nena Abernathy LCSW [address] [place] [address] [place] [phone] (Wo rk) Social History Tobacco Use Types [...] AM PST documented as of this encounter Progress Notes La Nena Abernathy LCSW - 06/16/2019 3:12 PM PST This financial writer left voicemail for pt with request to call this financial writer back. documented in this encounter Plan of Treatment [...] documented as of this encounter Care Teams Coo Relationship Specialty Start Date End Date Lior Luz MD PCP - General Internal Medicine 07/19/17 01/16/21 [facility] [place] [address] documented as of this encounter
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
--- OUTSIDE RECORDS SUMMARY | 2021-04-17 03:18 | XMS_ITS | Encounter Summary ---
:1950 Author Organization [facility] [place] [address] Care Team Providers Name Role Phone MD Sukh Primary Care Provider Reason for Referral Audiology (Routine) - Closed Specialty Diagnoses / Procedures Referred By Contact Refer red To Contact Diagnoses Bilateral hearing loss, unspecified hearing loss type Lior Luz MD Braganza, Rabindra A [address] [facility] [place] [address] [place] [address] Phone: Fax: Referral ID Status Reason Start Date Expiration Visits Visits Date Requested Authorized [id number] Closed Continuity of 11/05/2017 11/05/2018 1 1 Care Question Answer What is your specific consult question for the special ist? hearing loss adiology Services (Routine) - Closed Specialty Diagnoses / Procedures Referred By Contact Refer red To Contact Diagnoses Encounter for abdominal aortic aneurysm screening Lior Luz MD [facility] MEDICAL Procedures REFERRAL FOR U/S OF AORTA [address] [place], [place] [address] [address] [place] [address] Phone: [phone] Fax: Referral ID Status Reason Start Date Expiration Visits Visits Date Requested Authorized [id number] Closed Continuity of 11/05/2017 11/05/2018 1 1 Care Reason for Visit Reason Comments Follow Up 3mo lab results Encounter Details Date Type Department Care Team Description 11/05/2017 Office Visit SBCPHD Lior Story Hyp othyroidism, unspecified type (Primary Dx); APPLICATION CONSULTANT Elevated prostate specific antigen (PSA) ; [address] Encounter for hepatitis C sc reening test for low risk patient; [place], [place] Need for vaccination; [address] [place] Obstructive sleep apnea; [phone] [id number] Encounter for abdominal aortic aneurysm screening; [phone] Bilateral heari ng loss, unspecified hearing loss type; (Work) Vitamin D deficiency Social History Tobacco Use Types Packs/Day Years [...] Sign Reading Time Taken Comments Blood Pressure 135/80 11/05/2017 3:38 PM PDT Pulse 79 11/05/2017 3:38 PM PDT Temperature - - Respiratory Rate 18 11/05/2017 3:38 PM PDT Oxygen Saturation 96% 11/05/2017 3:38 PM PDT Inhaled Oxygen Concentration - - Weight 111.6 kg (246 lb) 11/05/2017 3:38 PM PDT Height - - Body Mass Index 35.3 04/26/2017 3:07 PM PST documented in this encounter Patient Instructions Patient InstructionsLior Luz MD - 11/05/2017 4:00 PM PDT Prevnar-13 today Have Shingrix vaccine at [facility] Have Ultrasound on aorta at [facility] Have hearing test. See Dr. Luz in 12 weeks documented in this encounter Progress Notes Lior Luz MD - 11/05/2017 10:59 AM PDT CHIEF COMPLAINT Follow Up (3mo lab results) HISTORY OF PRESENT ILLNESS Dinesh Rodriguez is a 67 year old male who comes to clinic today for Follow Up (3mo lab results) Doing well on Synthroid 100. 6 days of the week. He feels more energetic. fT4 improved on lower dose. No palpitations He had prostate biopsy with benign results only. He is due for AAA screening. He needs Prevnar-13 and Shignrix vaccines. He requests a hearing test for worsening hearing loss. PHYSICAL EXAM VS: 11/05/2017 3:38 PM BP 135/80 Weight 246 lb (111.6 kg) General: well developed, well nourished and well hydrated in no acute distress Head: normocephalic and atraumatic Eyes: EOMI, PERRL, cunjunctivae clear Neck: supple, FROM Extremities: no clubbing, cyanosis or edema Neurological: no focal deficits Psychological: A&Ox3, normal mood and affect Weight management:counseled patient on BMI and agreed upon a follow up plan for patient's weight. ASSESSMENT/PLAN Follow Up (3mo lab results) Prevnar-13 today Have [facility]rix vaccine at [facility] Have Ultrasound on aorta at [facility] Have hearing test. Labs in 3months before next visit See Dr. Luz in 12 weeks documented in this encounter Plan of Treatment Scheduled Orders Name Type Priority Associated Diagnoses Order S chedule REFERRAL FOR U/S OF Imaging Routine Encounter for abdomin al Ordered: 11/05/2017 AORTA aortic aneurysm screening Scheduled Referrals Name Type Priority Associated Diagnoses Order S chedule REFERRAL TO AUDIOLOGY Referral Routine Bilateral hearing l oss, Ordered: 11/05/2017 unspecified hearing loss type documented as of this encounter Results VITAMIN D; 25 HYDROXY (01/17/2018 9:34 AM PDT) P athologist Signature VITAMIN D, 32 30 - 100 [facility] 25-OH, TOTAL ng/mL [facility] [place] Comment: Vitamin D Status ? 25-OH Vitam in D: Deficiency: ?<20 ng/mL Insufficiency: ? 20 - 29 ng/mL Optimal: ? > or = 30 ng/mL For 25-OH Vitamin D testing on patients on D2-supplementation and patients for whom quantitation of D2 and D3 fractions is required, the QuestAssureD(TM) 25-OH VIT D, (D2,D3), LC/MS/MS is recomm ended: order code 20051 (patients >2yrs). For more information on this test, go to : http://education.[employer]/fa q/ISX225 (This link is being provided for informational/educational purposes only. ) Specimen Anatomical Collection Method Collection Time Receive d Time (Source) Location / / Volume Laterality Blood specimen Blood / Unknown 01/17/2018 9:34 2017 (specimen) AM PDT 1:43 AM PDT Narrative [facility] [place] - 8 11:54 AM PDT Performing Organization Information: [[id number]] ??: ??[facility] , [address] [place] [phone] Director: LUBA ROSE MD Lior Luz MD LAB - BLOOD DRAW Performing Organization Address City/State/ZIP Code Phon e Number [facility] [address] [phone] [facility] AB W/RFLX HCV RNA, QT, RT PCR (01/17/2018 9:34 AM PDT) Patholo gist Method Time Signature HEPATITIS C NON-REACTI NON-REACT [facility] ANTIBODY VE [facility] [place] SIGNAL TO 0.01 <1.00 [facility] CUT-OFF [facility] [place] Specimen Anatomical Collection Method Collection Time Receive d Time (Source) Location / / Volume Laterality Blood specimen Blood / Unknown 01/17/2018 9:34 2017 (specimen) AM PDT 1:43 AM PDT Narrative [facility] [place] - 8 11:54 AM PDT Performing Organization Information: [[id number]] ??: ??[facility] , [address] [place] [phone] Director: LUBA ROSE MD Lior Luz MD LAB - BLOOD DRAW Performing Organization Address [facility]/ZIP [facility] Phon e Number [facility] [address] [phone] [place] THYROID PANEL 1 (TSH+FT4) (01/17/2018 9:34 AM PDT) athologist Signature TSH, ULTRA 0.943 0.55 - [place] SENS. 4.78 [facility] uIU/ML CLINICAL LAB Comment: ?REFERENCE RAN GE NOT AVAILABLE ?FOR AGES: NEW BORN TO 23 MONTHS. FREE THYROXINE 1.30 0.89 - 1.76 NG/DL [facility] CLINICAL LAB Comment: ADULT RANGES Specimen Anatomical Collection Method Collection Time Receive d Time (Source) Location / / Volume Laterality Blood specimen Blood / Unknown 01/17/2018 9:34 2017 (specimen) AM PDT 11:06 AM PDT Narrative [facility] CL[facility]ICAL [facility] - 12/20 3:19 PM PDT NON-FASTING Lior Luz MD LAB - BLOOD DRAW Performing Organization Address [facility] Phon e Number [facility] [address] [place] [address] CLINICAL LAB REMEDIO [facility] 3, [place] COMPRE METAB PANEL (01/17/2018 9:34 AM PDT) athologist Signature SODIUM 139 136 - 145 [place] MEQ/L [facility] CLINICAL LAB POTASSIUM 4.6 3.5 - 5.1 [place] MEQ/L [facility] CLINICAL LAB CHLORIDE 103 98 - 107 [place] MEQ/L [facility] CLINICAL LAB CARBON DIOXIDE 28 21 - 31 [place] MEQ/L [facility] CLINICAL LAB ANION GAP 12.6 10.0 - [place] 20.0 MEQ/L [facility] CLINICAL LAB UREA NITROGEN 23 7 - 25 [place] MG/DL [facility] CLINICAL LAB CREATININE, 0.98 0.60 - [place] SERUM 1.30 MG/DL [facility] CLINICAL LAB GFR ESTIMATE >60 >OR = 60 [place] mL/min [facility] CLINICAL LAB Comment: ? GFR REFERENC E RANGE: >OR=60 mL/min/1.73m2 ? IF RESULT OF GFR IS <60 AND THE PATIENT IS ? AMER ICAN, MULTIPLY RESULT BY 1.210 ? CALCULATION UPDATED 01/20/2010 ? REFERENCE: N KDEP 11/16/2009 GLUCOSE 105 (H) FAST < 100 MG/DL [facility] CLINICAL LAB CALCIUM 9.4 8.2 - 10.0 MG/DL [facility] CLINICAL LAB BILIRUBIN, TOTAL 0.7 0.3 - 1.0 MG/DL [facility] CLINICAL LAB ALKALINE PHOSPHATASE 79 40 - 115 U/L [facility] CLINICAL LAB SGPT/ALT 40 7 - 52 U/L [place] COUNT Y CLINICAL LAB Comment: PATIENTS TREATED WITH SULFASALAZINE MAY GENERATE A FALSE LOW RESULT FOR ALT SGOT/AST 24 13 - 39 U/L [facility] CLINICAL LAB TOTAL PROTEIN 6.8 6.4 - 8.9 G/DL [facility] CLINICAL LAB ALBUMIN 4.4 3.5 - 5.7 G/DL [facility] CLINICAL LAB GLOBULIN 2.4 2.0 - 4.1 G/DL [facility] CLINICAL LAB A/G RATIO 1.8 1.1 - 2.2 [facility] CLINICAL LAB Specimen Anatomical Collection Method Collection Time Receive d Time (Source) Location / / Volume Laterality Blood specimen Blood / Unknown 01/17/2018 9:34 2017 (specimen) AM PDT 11:06 AM PDT Narrative [facility] CLINICAL LAB - 12/20 3:17 PM PDT NON-FASTING Lior Luz MD LAB - BLOOD DRAW Performing Organization Address City/State/ZIP Code Phon e Number [facility] [address] [place] [address] CLINICAL LAB [place] [address], [place] CBC WITH AUTO DIFF (01/17/2018 9:34 AM PDT) P athologist Signature WBC 5.9 4.5 - 10.0 [facility] CLINICAL LAB RBC 4.79 4.40 - [place] 6.00 M/[facility] CLINICAL LAB HEMOGLOBIN 14.7 14.5 - [place] 17.0 G/DL [facility] CLINICAL LAB HEMATOCRIT 43.6 42.0 - [place] 54.0 % [facility] CLINICAL LAB MCV 91.1 82.0 - [place] 99.0 [facility] CLINICAL LAB MCH 30.8 26.0 - [place] 32.0 PG [facility] CLINICAL LAB MCHC 33.8 31.0 - [place] 36.0 G/DL [facility] CLINICAL LAB RDW 12.6 11.5 - [place] 15.0 % [facility] LAB PLATELET COUNT 212 150 - 450 [facility] LAB MPV 9.1 7.4 - 10.4 [facility] CLINICAL LAB NEUTROPHILS 59.1 50.0 - [place] 70.0 [facility] CLINICAL LAB LYMPHOCYTES 28.9 25.0 - [place] 45.0 % [facility] LAB MONOCYTES 7.2 1.0 - 12.0 [facility] LAB EOSINOPHILS 3.3 0.0 - 6.0 [facility] LAB BASOPHILS 1.5 0.0 - 2.0 [facility] LAB ABS. NEUTROPHILS 3.5 1.4 - 6.5 [facility] LAB ABS. LYMPHOCYTES 1.7 1.2 - 3.4 [facility] LAB ABS. MONOCYTES 0.4 0.1 - 0.6 [facility] CLINICAL LAB ABS. EOSINOPHILS 0.2 0.0 - 0.4 [facility] CLINICAL LAB ABS. BASOPHILS 0.1 0.0 - 0.2 [facility] CLINICAL LAB Comment: Specimen Anatomical Collection Method Collection Time Receive d Time (Source) Location / / Volume Laterality Blood specimen Blood / Unknown 01/17/2018 9:34 2017 (specimen) AM PDT 11:06 AM PDT Narrative [facility] CLINICAL LAB - 12/20 11:20 AM PDT NON-FASTING Lior Luz MD LAB - BLOOD DRAW Performing Organization Address City/State/ZIP Code Phon e Number [facility] [address] [place] [phone] CLINICAL LAB [place] [facility] documented in this encounter Visit Diagnoses Diagnosis Hypothyroidism, unspecified type - Prima ry Elevated prostate specific antigen (PSA) Encounter for hepatitis C screening test for low risk patient Need for vaccination Need for prophylactic vaccination and in oculation against unspecified single disease Obstructive sleep apnea Obstructive sleep apnea (adult) (pediatr ic) Encounter for abdominal aortic aneurysm screening Screening for other and unspecified card iovascular conditions Bilateral hearing loss, unspecified hear ing loss type Vitamin D deficiency documented in this encounter Care Teams Plating Machine Operator Relationship Specialty Start Date End Date Lior Luz MD PCP - General Internal Medicine 07/19/17 01/16/[address] [place] [phone] documented as of this encounter
--- OUTSIDE RECORDS SUMMARY | 2021-04-17 03:18 | XMS_ITS | Encounter Summary ---
:1950 Author Organization [facility] [place] [address] Care Team Providers Name Role Phone MD Sukh Primary Care Provider Reason for Visit Reason Comments Behavioral Health Problem Encounter Details Date Type Department Care Team Description 04/01/2019 Behavioral Health SBCPHD La Nena [place] Adjustme nt disorder Visit [facility] with anxious mood - [address] [place] [address] (P rimary REMEDIO Remedio Dx) [facility] [address] [place] [address] [phone] Social History Tobacco Use Types Packs/Day Years [...] Instructions Patient InstructionsLa Nena Abernathy LCSW - 04/01/2019 9:00 AM PST Goals as of 04/01/2019 at 9:00 AM ??? decrease anxiety (pt-stated) 1.) Start paying attention to your self talk every day, and start using coping thoughts this week. 2.) Continue to go for walks for at least 30 minutes per day. 3.) Start doing yoga at least once for at least 30 minutes this week. 4.) Watch videos which you find relaxing at least 3 times this week. documented in this encounter Progress Notes La Nena Abernathy LCSW - 04/01/2019 8:04 AM PST Dinesh Rodriguez is a 69 year old male patient of Lior Luz MD who presents for a follow up visit for symptoms of adjustment d/o with anxiety. Current symptoms include: Patient reports the following symptoms: poor sleep, anxiety, nervousness,worry, racing thoughts and irritability. Symptoms which worsened: Same as per pt. Symptoms which improved: Same as per pt. Patient's subjective view: Pt reported he went to [facility] for 15 years in the past, and pt reported heis open to new meetings. Pt spoke about how relationships haven't worked out for him. Pt reports pangs of anxiety come and go. Pt reports ex-gf in [place] still communicates with him. Pt reports he's feeling a little better, worried about housing, making lists of things to do for moving, working on making money, politically active, trying to focus on tasks, disengaging from ex-gf in [place]. Ptreports anxiety and worry as he may have to leave home now as landlords getting older, working out back up plan in [place] until housing becomes available in [place]. PHQ9 Score: PHQ-9 Total Score (Auto Calculated) 4 at 03/09/2019 2:17 PM PHQ9 Severity:0-4: Normal PHQ9 Plan: 0-4: No action Required ELIOT 7 Score: 03/19/2019 8:32 AM Eliot-7 Total (!) 14 moderate anxiety Coping skills: Pt reports he walks and talks to self out loud, making to do lists, and performing tasks. 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 MENTAL STATUS EXAM - (WNL=Within Normal Limits) Appearance: WNL Body Movement: normal Behavior: cooperative Speech: pressured Emotional State/Mood: anxious Emotional State/Affect: anxious, consistent to mood Thought Content: WNL Thought Process: WNL Intellectual Functioning: normal Orientation: WNL Sensorium/Cognition/Memory: WNL Insight: WNL Judgment/Impaired Ability to Make Reasonable Decisions: WNL Assessment: It appears pt is experiencing sxs of adjustment d/o with moderate anxiety 2ndary to upcoming move and recent end of relationship with ex- girlfriend. Continue to assess. Intervention: This junior underwriter completed assessment and reviewed coping skills and pt goals. This junior underwriter provided education on relaxation exercises including guided imagery and deep breathing, conducted cognitive work including assisting patient in identifying how thoughts impact mood and behavior and identifying ways to shift thoughts to improve mood, encouraged physical exercise to improve mood, brainstormed solutions and assisted with problemsolving to address current stressors, explored relationship dynamics impacting mood and provided active listening, support, and validation of feelings. Patient Response: receptive. This junior underwriter worked with pt to create treatment plan with goals, and plan is for pt to follow instructions. Plan to explore pt experience with [facility] further and receptivity to joining new [facility] meetings. documented in this encounter Plan of Treatment [...] documented as of this encounter Care Teams Middleware Administrator Relationship Specialty Start Date End Date Lior Luz MD PCP - General Internal Medicine 07/19/17 01/16/21 [place] [address] documented as of this encounter
--- OUTSIDE RECORDS SUMMARY | 2021-04-17 03:18 | XMS_ITS | Encounter Summary ---
:1950 Author Organization [facility] [place] [address] Care Team Providers Name Role Phone MD Sukh Primary Care Provider Encounter Details Date Type Department Care Team Description 06/18/2019 Interim Notes [facility] La Nena Abernathy LCSW [address] [place] [address] [place] [phone] (Wo rk) Social History Tobacco Use Types [...] Progress Notes La Nena Abernathy LCSW - 06/18/2019 4:32 PM PST This service writer spoke with pt on the phone who rescheduled his session for 06/29/2019 at 8:30am. documented in this encounter Plan of Treatment [...] documented as of this encounter Care Teams Lard Renderer Relationship Specialty Start Date End Date Lior Luz MD PCP - General Internal Medicine 07/19/17 01/16/21 [address] [place] [address] documented as of this encounter
--- OUTSIDE RECORDS SUMMARY | 2021-04-17 03:18 | XMS_ITS | Encounter Summary ---
:1950 Author Organization [facility] [place] [address] Care Team Providers Name Role Phone MD Sukh Primary Care Provider Reason for Visit Reason Comments Hypothyroidism FU Encounter Details Date Type Department Care Team Description 07/19/[address] 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 elevation; [address] Hypothyroidism, unspecified type; [place], [place] Encounter for hepatitis C screening test for low risk patient [phone] [place], [place] [phone] Social History Tobacco Use Types Packs/Day Years Used Date Never Smoker Smokeless Tobacco: Never Used Alcohol Use Standard Drinks/Week Comments Yes 0 [...] Sign Reading Time Taken Comments Blood Pressure 135/73 07/19/2017 10:13 AM PST Pulse 69 07/19/2017 10:13 AM PST Temperature 36.8 ??C (98.3 ??F) 07/19/2017 10:13 AM PST Respiratory Rate 15 07/19/2017 10:13 AM PST Oxygen Saturation 96% 07/19/2017 10:13 AM PST Inhaled Oxygen Concentration - - Weight 113.4 kg (250 lb) 07/19/2017 10:13 AM PST Height - - Body Mass Index 35.87 04/26/2017 3:07 PM PST documented in this encounter Patient Instructions Patient InstructionsLior Luz MD - 07/19/2017 10:50 AM PST Have lab tests today. Proceed with prostate biopsy. We will get the supplies for CPAP See Dr. Luz in 12 weeks documented in this encounter Progress Notes Lior Luz MD - 07/18/2017 5:04 PM PST CHIEF COMPLAINT Hypothyroidism (FU) HISTORY OF PRESENT ILLNESS Dinesh Rodriguez is a 67 year old male who comes to clinic today for Hypothyroidism (FU) He has tolerated the slightly decreased dose of synthroid 100 on 6 days of the week well. We will check TSH/FT$ today. He has not been able to get [employer] to mail the necessary nose mask, hoses, filters and other suppliesfor the CPAP. He sleeps much better when using he CPAP but is unable to get the benefit due to missing replacement supplies. He is scheduled for prpostate bx on 07/29 Dr. Lewis. The review of systems is otherwise negative and the past medica, social and family history is reviewed and has no other changes than noted in the chart. PHYSICAL EXAM VS: 07/19/2017 10:13 AM BP 135/73 Weight 250 lb (113.4 kg) Physical Exam Constitutional: He is oriented to person, place, and time. He appears well- developed and well-nourished. HENT: Head: Normocephalic and atraumatic. Eyes: Conjunctivae and EOM are normal. Pupils are equal, round, and reactive to light. Neck: Normal range of motion. Neck supple. Neurological: He is alert and oriented to person, place, and time. Skin: Skin is warm and dry. Psychiatric: He has a normal mood and affect. His behavior is normal. Thought content normal. ASSESSMENT/PLAN Hypothyroidism (FU) stay on Synthroid 100 on 6 days of the week. We will get the CPAP supplies. Proceed with Prostate bx Go to lab now. See Dr. Luz in 12 weeks Past Medical History: Insomnia Obstructive sleep apnea Erectile dysfunction (2003) Obesity Hypothyroieism Osteoarthritis Health Maintenance Care: Prostate exam: Colonoscopy: clear 1999 AAA-screening: Vaccinations: childhood Soc. 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 Tobacco: e-cigarettes Alcohol: seldom (one drink per month) Previous Surgery: sinus drainage age 21 right thumb injury repair 2016 Medications: SYNTHROID 100 MCG ORAL TABLET (LEVOTHYROXINE SODIUM) one daily * PILLOW -MODEL MASK FOR USE WITH CPAP use with CPAP at night ROBATHOL EXTERNAL OIL (COTTONSEED OIL) Apply to skin in shower VIAGRA 100 MG ORAL TABLET (SILDENAFIL CITRATE) 1/2 to 1 tablet daily, 30 min - 4 hours before activity, as needed WELLBUTRIN SR 100 MG ORAL TABLET EXTENDED RELEASE 12 HOUR (BUPROPION HCL) 1 tablet TWICE per day fordepression documented in this encounter Plan of Treatment Not on filedocumented as of this encounter Results CBC WITH AUTO DIFF (10/07/2017 8:31 AM PDT) Analysis Performed At Patho logist Time Signature WBC 8.8 4.5 - 10.0 [place] [facility] CLINICAL LAB RBC 4.99 4.40 - [place] 6.00 M/uL [facility] HEMOGLOBIN 15.1 14.5 - [place] 17.0 G/DL [facility] HEMATOCRIT 45.5 42.0 - [place] 54.0 % [facility] MCV 91.2 82.0 - [place] 99.0 [facility] CLINICAL LAB MCH 30.4 26.0 - [place] 32.0 PG [facility] LAB MCHC 33.3 31.0 - [place] 36.0 G/DL [facility] RDW 13.2 11.5 - [place] 15.0 % [facility] PLATELET COUNT 218 150 - 450 [facility]/uL [facility] CL[facility] LAB MPV 9.4 7.4 - 10.4 [facility] CLINICAL LAB NEUTROPHILS 58.4 50.0 - [place] 70.0 % [facility] LYMPHOCYTES 28.4 25.0 - [place] 45.0 % [facility] MONOCYTES 9.0 1.0 - 12.0 [facility] CLINICAL LAB EOSINOPHILS 2.7 0.0 - 6.0 [facility] CLINICAL LAB BASOPHILS 1.5 0.0 - 2.0 [facility] CLINICAL LAB ABS. NEUTROPHILS 5.2 1.4 - 6.5 [facility] CLINICAL LAB ABS. LYMPHOCYTES 2.5 1.2 - 3.4 [facility] CLINICAL LAB ABS. MONOCYTES 0.8 (H) 0.1 - 0.6 [facility] CLINICAL LAB ABS. EOSINOPHILS 0.2 0.0 - 0.4 [facility] CLINICAL LAB ABS. BASOPHILS 0.1 0.0 - 0.2 [facility] CLINICAL LAB Comment: Specimen Anatomical Collection Method Collection Time Receive d Time (Source) Location / / Volume Laterality Blood specimen Blood / Unknown 10/07/2017 8:31 2017 (specimen) AM PDT 9:49 AM PDT Lior Luz MD LAB - BLOOD DRAW Performing Organization Address [facility]/ZIP Code Phon e Number [address] [address] CLINICAL LAB [place] BLDG 3 FL THYROID PANEL 1 (TSH+FT4) (10/07/2017 8:31 AM PDT) athologist Signature TSH, ULTRA 1.224 0.55 - [place] SENS. 4.78 [facility] uIU/ML CLINICAL LAB Comment: ?REFERENCE RAN GE NOT AVAILABLE ?FOR AGES: NEW BORN TO 23 MONTHS. FREE THYROXINE 1.37 0.89 - 1.76 NG/DL [facility] CLINICAL LAB Comment: ADULT RANGES Specimen Anatomical Collection Method Collection Time Receive d Time (Source) Location / / Volume Laterality Blood specimen Blood / Unknown 10/07/2017 8:31 2017 (specimen) AM PDT 9:49 AM PDT Lior Luz MD LAB - BLOOD DRAW Performing Organization Address [facility]/ZIP Code Phon e Number [address] [address] CLINICAL LAB [facility] 3 [place] documented in this encounter Visit Diagnoses Diagnosis Obstructive sleep apnea - Primary Obstructive sleep apnea (adult) (pediatr ic) PSA elevation Elevated prostate specific antigen (PSA) Hypothyroidism, unspecified type Encounter for hepatitis C screening test for low risk patient documented in this encounter Care Teams Road Patcher Relationship Specialty Start Date End Date Lior Luz MD PCP - General Internal Medicine 07/19/17 01/16/[address] [place] [phone] documented as of this encounter
--- OUTSIDE RECORDS SUMMARY | 2021-04-17 03:18 | XMS_ITS | Encounter Summary ---
:1950 Author Organization [facility] [place] [address] Care Team Providers Name Role Phone MD Sukh Primary Care Provider Reason for Visit Reason Comments Behavioral Health Problem Encounter Details Date Type Department Care Team Description 05/15/2019 Behavioral Health [facility] La Nena Medina Adjustme nt disorder Visit [facility] with anxious mood - [address] (P rimary [place] Dx) [facility] [phone] [place] [phone] Social History Tobacco Use Types Packs/Day Years [...] Instructions Patient InstructionsLa Nena Abernathy LCSW - 05/15/2019 9:06 AM PST Goals as of 05/15/2019 at 9:06 AM ??? decrease anxiety (pt-stated) 1.) Continue paying attention to your self talk every day, and start using coping thoughts this week. 2.) Continue to go for walks for at least 30 minutes per day. 3.) Start doing yoga at least once for at least 30 minutes this week. 4.) Continue to watch DIY videos which you find relaxing at least 3 times this week. 5.) Start practicing relaxation exercises for at least 10 minutes per day. documented in this encounter Progress Notes La Nena Abernathy LCSW - 05/15/2019 8:35 AM PST Dinesh Rodriguez is a 69 year old male patient of Lior Luz MD who presents for a follow up visit for symptoms of adjustment d/o with anxiety. Current symptoms include: Patient reports the following symptoms: anxiety, nervousness, worry and fear. Symptoms which worsened: None as per pt. Symptoms which improved: Pt reports feeling more relaxed and less anxious. Patient's subjective view: Pt reported he plans to work in [place] soon, starting in Jun, will be commuting there, hoping to move there temporarily, feels better emotionally as details are lining up, feelsless stress, less anxious, things proceeding, looking into storage places, positive things happening, feels more relaxed, feels life is more manageable. Pt reports he feels he is becoming more self aware of when he tends to tense up causing shoulders to be tight, and now that he's aware, he feels he can focus on decreasing tension and relaxing shoulders as per pt. PHQ9 Score: PHQ-9 Total Score (Auto Calculated) 4 at 03/09/2019 2:17 PM PHQ9 Severity:0-4: Normal PHQ9 Plan: 0-4: No action Required ELIOT 7 Score: 03/19/2019 8:32 AM Eliot-7 Total (!) 14 moderate anxiety Coping skills: crossword puzzles, reading, working on shifting self talk, going for walks. MENTAL STATUS EXAM - (WNL=Within Normal Limits) Appearance: appropriate Body Movement: normal Behavior: cooperative Speech: WNL Emotional State/Mood: WNL Emotional State/Affect: anxious, consistent to mood Thought Content: WNL Thought Process: WNL Intellectual Functioning: normal Orientation: WNL Sensorium/Cognition/Memory: WNL Insight: good Judgment/Impaired Ability to Make Reasonable Decisions: good Assessment: It appears pt has been experiencing an adjustment d/o with moderate anxiety 2ndary to end of relationship with ex-girlfriend, as well as upcoming changes including change of job and moving. It appears pt's sxs of anxiety have decreased as per pt self report, and pt attributes it to working on shifting self talk to decrease anxiety, as well as starting to go for walks. Continue to assess. Intervention: This group underwriter conducted cognitive work including assisting patient in identifying how thoughts impact mood and behavior and identifying ways to shift thoughts to improve mood, encouraged physical exercise to improve mood, explored relationship dynamics impacting mood and provided active listening, support, and validation of feelings. This group underwriter provided positive feedback and encouragement for efforts made to do cognitive work and start shifting thoughts to decrease anxiety. Progress on goals: This group underwriter reviewed goals with pt. Pt reports he has been shifting thoughts, feels this is going well, has been walking daily except for the past 4 days, didn't do yoga, and still wants to start doing it, has been doing crossword puzzles to relax, and watching DIY videos to relax. Patient Response: receptive. This group underwriter worked with pt to review and revise treatment plan with goals, and plan is for pt to follow instructions. documented in this encounter Plan of Treatment [...] documented as of this encounter Care Teams Poolroom/Poolhall Manager Relationship Specialty Start Date End Date Lior Luz MD PCP - General Internal Medicine 07/19/17 01/16/21 [address] [place] [address] documented as of this encounter
--- OUTSIDE RECORDS SUMMARY | 2021-04-17 03:18 | XMS_ITS | Encounter Summary ---
:1950 Author Organization [facility] [place] [address] Care Team Providers Name Role Phone MD Sukh Primary Care Provider Reason for Referral Behavioral Health (Routine) - Closed Specialty Diagnoses / Procedures Referred By Contact Refer red To Contact & Soc Srv Diagnoses Grief reaction Jessica Smith MD [facility] Provider-Anesthesiologist Attending / [address] [facility] [place] [address] [place], [place] [address] [place] [address] Phone: Fax: Referral ID Status Reason Start Date Expiration Date Visits V isits Requested Authorized [id number] Closed Specialty 03/09/2019 03/08/2020 2 2 Services Required Question Answer What is your specific consult question for Suffering f rom a recent unexpected break up the specialist? Reason for Visit Reason Comments Follow Up pt c/o mild eye infection x1 mo Encounter Details Date Type Department Care Team Description 03/09[facility]2019 [facility] Grief reaction (Primary Dx); PRIMARY CARE [address] Nasal sinus congestion; [address] [place] Partner relationship problems; [place], [place] Testosterone deficiency in m mukund; [place] [address] Elevated prostate specific antigen (PSA) ; [address] Class 2 obesity without seri ous comorbidity with body mass index (BMI) of 37.0 to 37.9 in adult, unspecified obesity type; Other specified hypothyroidism; [phone] Personal histor y of other endocrine, nutritional and metabolic disease ; (Fax) Encounter for s creening for malignant neoplasm of prostate Social History Tobacco Use Types Packs/Day Years [...] Sign Reading Time Taken Comments Blood Pressure 161/95 03/09/2019 1:46 PM PDT Pulse 67 03/09/2019 1:46 PM PDT Temperature 35.5 ??C (95.9 ??F) 03/09/2019 1:46 PM PDT Respiratory Rate 14 03/09/2019 1:46 PM PDT Oxygen Saturation 95% 03/09/2019 1:46 PM PDT Inhaled Oxygen Concentration - - Weight 113.9 kg (251 lb) 03/09/2019 1:46 PM PDT Height - - Body Mass Index 37.07 12/03/2018 9:03 AM PDT documented in this encounter Patient Instructions Patient InstructionsChelsgordon Smith MD - 03/09/2019 2:00 PM PDT Start taking flonase daily. Trial of claritin (loratidine) daily. Make appointment with Elizabeth Abernathy. Follow up with Dr. Luz in 3 month for blood pressure check. documented in this encounter Progress Notes Jessica Smith MD - 03/09/2019 1:49 PM PDT [facility] INTERNAL MEDICINE CLINIC NOTE Today's Date: 03/09/2019 1:49 PM Patient: Dinesh Rodriguez : 1950 PCP: Lior Luz MD Subjective Chief Complaint Patient presents with ??? Follow Up pt c/o mild eye infection x1mo History of Present Illness: 69 year old male with a PMH of obesity, hypothyroidism who presents for follow up. Patient complains of mild sinus congestion for the last 2 months. He has noticed water eyes and a post nasal drip as well. His ears have been popping. He denies any fevers or chills, mucopurulent discharge. Symptoms started when he returned from vacation in [place]. He is taking ibuprofen occasionally. He has a history of sinus surgery 9 months ago. Last episode of congestion similar to this was yearsago, treated with an antibiotics. Of note, he was unexpectedly broken up with a few weeks ago and has had trouble coping, no sleeping well. Review of Systems Constitutional: Negative for chills, fever and malaise/fatigue. HENT: Positive for congestion. Negative for ear discharge, ear pain, hearing loss, sinus pain and sore throat. Eyes: Positive for discharge. Negative for blurred vision, double vision and photophobia. Respiratory: Negative for cough and shortness of breath. Cardiovascular: Negative for chest pain and palpitations. Gastrointestinal: Negative for abdominal pain, nausea and vomiting. Genitourinary: Negative for dysuria. Musculoskeletal: Negative for myalgias. Skin: Negative for rash. Neurological: Negative for dizziness and headaches. Psychiatric/Behavioral: Negative for depression. Patient Active Problem List Diagnosis ??? Hypothyroidism ??? Obesity ??? Insomnia ??? Sleep apnea ??? Obstructive sleep apnea ??? Gastro-esophageal reflux disease without esophagitis ??? Osteoarthritis ??? Male erectile dysfunction ??? Elevated prostate specific antigen (PSA) ??? Testosterone deficiency in male No past medical history on file. No past surgical history on file. Family History Family history unknown: Yes Social History Socioeconomic History ??? Marital status: Not on file Spouse name: Not on file ??? Number of children: Not on file ??? Years of education: Not on file ??? Highest education level: Not on file Occupational History ??? Not on file Social Needs ??? Financial resource strain: Not on file ??? Food insecurity: Worry: Not on file Inability: Not on file ??? Transportation needs: Medical: Not on file Non-medical: Not on file Tobacco Use ??? Smoking status: Never Smoker ??? Smokeless tobacco: Never Used Substance and Sexual Activity ??? Alcohol use: No Comment: ocasionally ??? Drug use: No ??? Sexual activity: Not on file Lifestyle ??? Physical activity: Days per week: Not on file Minutes per session: Not on file ??? Stress: Not on file Relationships ??? Social connections: Talks on phone: Not on file Gets together: Not on file Attends mandaeism service: Not on file Active member of club or organization: Not on file Attends meetings of clubs or organizations: Not on file Relationship status: Not on file ??? Intimate partner violence: Fear of current or ex partner: Not on file Emotionally abused: Not on file Physically abused: Not on file Forced sexual activity: Not on file Other Topics Concern ??? Not on file Social History Narrative ??? Not on file Current Outpatient Medications Medication Sig Dispense Refill ??? lfsrviie-qrlmmibic-XQ (CORTISPORIN) 3.5-10,000-1 mg/mL-unit/mL-% otic suspension Place 5 Drops into the right ear 4 (four) times daily 10 mL 0 ??? levothyroxine (SYNTHROID, LEVOTHROID) 100 mcg tablet TAKE 1 TABLET BY MOUTH EVERY DAY 100 Tab 2 ??? sildenafil (VIAGRA) 100 mg tablet Instructions: 1/2 to 1 tablet daily, 30 min - 4 hours before activity, as needed No Known Allergies Objective Vitals: 03/09/19 1346 BP: (!) 161/95 BP Site: Left Arm BP Position: Sitting BP Cuff Size: Large Adult Pulse: 67 Resp: 14 Temp: 95.9 ??F (35.5 ??C) TempSrc: Oral SpO2: 95% Weight: 251 lb (113.9 kg) Body mass index is 37.07 kg/m??. Physical Exam Constitutional: He is oriented to person, place, and time. He appears well- developed and well-nourished. HENT: Head: Normocephalic and atraumatic. Mouth/Throat: Oropharynx is clear and moist. Nasal congestion, Difficult to visualize tonsils Eyes: Pupils are equal, round, and reactive to light. EOM are normal. Very mild conjunctivitis Neck: Normal range of motion. Left submandibular lymph node Cardiovascular: Normal rate and regular rhythm. Pulmonary/Chest: Effort normal and breath sounds normal. No respiratory distress. Abdominal: Soft. Musculoskeletal: Normal range of motion. He exhibits no edema. Lymphadenopathy: He has cervical adenopathy. Neurological: He is alert and oriented to person, place, and time. No cranial nerve deficit. Skin: Skin is warm. Psychiatric: He has a normal mood and affect. Pertinent Labs: None Assessment and Plan Problem List EENT Nasal sinus congestion Current Assessment & Plan flonase daily Trial of claritin Continue ibuprofen prn Follow up with Dr. Luz Mental Health Partner relationship problems Current Assessment & Plan Referral placed for Behavorial Health Other Visit Diagnoses Grief reaction - Primary Relevant Orders REFERRAL TO BEHAVIORAL HEALTH Authored by: Jessica Smith MD 03/09/19 1:49 PM documented in this encounter Miscellaneous Notes Assessment & Plan Note - Jessica Smith MD - 03/09/2019 2:26 PM PDT Associated Problem(s): Partner relationship problems Referral placed for Behavorial Health ssessment & Plan Note - Jessica Smith MD - 03/09/2019 2:25 PM PDTAssociated Problem(s): Nasal sinus congestion flonase daily Trial of claritin Continue ibuprofen prn Follow up with Dr. Vitalectronically signed by Jessica Smith MD at 03/09/2019 2:25 PM PDTdocumented in this encounter Plan of Treatment Scheduled Referrals Name Type Priority Associated Diagnoses Order S chedule REFERRAL TO BEHAVIORAL Referral Routine Grief reaction Ord ered: 03/09/2019 HEALTH documented as of this encounter Results COMPRE METAB PANEL (05/15/2019 8:[address] [facility]) P athologist Signature SODIUM 139 136 - 145 [id number] MEQ/L POTASSIUM 4.5 3.5 - 5.1 [id number] MEQ/L CHLORIDE 103 98 - 107 [id number] MEQ/L CARBON DIOXIDE 31 21 - 31 [id number] MEQ/L ANION GAP 9.5 (L) 10.0 - [id number] 20.0 MEQ/L UREA NITROGEN 14 7 - 25 [id number] MG/DL CREATININE, 0.96 0.60 - [id number] SERUM 1.30 MG/DL GFR ESTIMATE >60 >OR = 60 [id number] mL/min Comment: ? GFR REFERENC E RANGE: >OR=60 mL/min/1.73m2 ? IF RESULT OF GFR IS <60 AND THE PATIENT IS ? ANA MATHIS, MULTIPLY RESULT BY 1.210 ? CALCULATION UPDATED 01/20/2010 ? REFERENCE: N KDEP 11/16/2009 GLUCOSE 103 (H) FAST < 100 MG/DL [id number] CALCIUM 9.7 8.2 - 10.0 MG/DL [id number] BILIRUBIN, TOTAL 0.6 0.3 - 1.0 MG/DL [id number] ALKALINE PHOSPHATASE 96 40 - 115 U/L [id number] SGPT/ALT 52 7 - 52 U/L [id number] Comment: PATIENTS TREATED WITH SULFASALAZINE MAY GENERATE A FALSE LOW RESULT FOR ALT SGOT/AST 25 13 - 39 U/L [id number] TOTAL PROTEIN 6.8 6.4 - 8.9 G/DL [id number] ALBUMIN 4.6 3.5 - 5.7 G/DL [id number] GLOBULIN 2.2 2.0 - 4.1 G/DL [id number] A/G RATIO 2.1 1.1 - 2.2 [id number] Specimen Anatomical Collection Method Collection Time Receive d Time (Source) Location / / Volume Laterality Blood specimen Blood / Unknown 05/15/2019 8:27 2018 (specimen) AM PST 8:31 AM PST Narrative [facility] - 04/20 10:46 AM PST FASTING Jessica Smith MD LAB - BLOOD DRAW Performing Organization Address City/State/ZIP Code Phon e Number [address] [address] CLINICAL LAB [place] [address] [place] [id number] CBC WITH AUTO DIFF (05/15/2019 8:27 AM PST) P athologist Signature WBC 6.3 4.5 - 10.0 [id number] K/uL RBC 4.68 4.40 - [id number] 6.00 M/uL HEMOGLOBIN 14.9 14.5 - [id number] 17.0 G/DL HEMATOCRIT 43.6 42.0 - [id number] 54.0 % MCV 93.2 82.0 - [id number] 99.0 FL MCH 31.9 26.0 - [id number] 32.0 PG MCHC 34.3 31.0 - [id number] 36.0 G/DL RDW 12.9 11.5 - [id number] 15.0 % PLATELET COUNT 176 150 - 450 [id number] K/uL MPV 10.2 7.4 - 10.4 [id number] FL NEUTROPHILS 61.5 50.0 - [id number] 70.0 % LYMPHOCYTES 27.2 25.0 - [id number] 45.0 % MONOCYTES 8.5 1.0 - 12.0 [id number] % EOSINOPHILS 2.3 0.0 - 6.0 [id number] % BASOPHILS 0.5 0.0 - 2.0 [id number] % ABS. NEUTROPHILS 4.0 1.4 - 6.5 [id number] K/uL ABS. LYMPHOCYTES 1.7 1.2 - 3.4 [id number] K/uL ABS. MONOCYTES 0.5 0.1 - 0.6 [id number] K/uL ABS. EOSINOPHILS 0.1 0.0 - 0.4 [id number] K/uL ABS. BASOPHILS 0.0 0.0 - 0.2 [id number] K/uL Comment: Specimen Anatomical Collection Method Collection Time Receive d Time (Source) Location / / Volume Laterality Blood specimen Blood / Unknown 05/15/2019 8:27 2018 (specimen) AM PST 8:31 AM PST Narrative [facility] - 04/20 10:33 AM PST FASTING Jessica Smith MD LAB - BLOOD DRAW Performing Organization Address City/State/ZIP Code Phon e Number [facility] [address] [place] [address] CLINICAL [facility] [place] [address] [place] [id number] HEMOGLOBIN, GLYCOSYLATED (A1C) (05/15/2019 8:27 AM PST) P athologist Signature GLYCOSYLATED HGB 5.9 <6.0 % [id number] (A1C) Comment: THE [employer] SUGGES [place] INTERPRETIVE GUIDELINES FOR NON- ADULTS HGB A1C % ? GLUCOSE C ONTROL INDEX GREATER THAN 8.0 ? ADDITIONAL ACT ION SUGGESTED LESS THAN 7.0 ?GOAL LESS THAN 6.0 ?NORMAL Specimen Anatomical Collection Method Collection Time Receive d Time (Source) Location / / Volume Laterality Blood specimen Blood / Unknown 05/15/2019 8:27 2018 (specimen) AM PST 8:31 AM PST Jessica Smith MD LAB - BLOOD DRAW Performing Organization Address [facility]/ZIP Code Phon e Number [address] [address] CLINICAL LAB [place] [address] [place] [id number] THYROID PANEL 1 (TSH+FT4) (05/15/2019 8:27 AM PST) athologist Signature TSH, ULTRA 1.238 0.55 - 4.78 [id number] SENS. uIU/ML Comment: ?REFERENCE RAN GE NOT AVAILABLE ?FOR AGES: NEW BORN TO 23 MONTHS. FREE THYROXINE 1.36 0.89 - 1.76 NG/DL [id number] Comment: ADULT RANGES Specimen Anatomical Collection Method Collection Time Receive d Time (Source) Location / / Volume Laterality Blood specimen Blood / Unknown 05/15/2019 8:27 2018 (specimen) AM PST 8:31 AM PST Narrative [facility] - 04/20 10:42 AM PST FASTING Jessica Smith MD LAB - BLOOD DRAW Performing Organization Address [facility]/ZIP Code Phon e Number [address] [address] CLINICAL LAB [place] [address], [place] [id number] TESTOSTERONE, FREE AND TOTAL (05/15/2019 8:27 AM PST) athologist Signature TESTOSTERONE, 405 250 - [facility] TOTAL, 1,100 DIAGNOSTICS LC/MS/MS ng/dL [facility] Comment: ??Men with clinically significant hypog onadal symptoms and testosterone values repeatedly in the ra nge of the 200-300 ng/dL or less, may benefit from testosterone t reatment after adequate risk and benefits counseling. FREE TESTOSTERONE 46.7 35.0 - 155.0 pg/mL [facility] Comment: ??Data from J Clin Invest 1974:53:819 -828 and J Clin Endocrinol Metab 1973;36:8830-0334. Men with clinic ally significant hypogonadal symptoms and testosterone va lues repeatedly in the range of the 200-300 ng/dL or less, may benefit from testosterone treatment after adequate risk and benefi ts counseling. For additional information, please refe r to http://education.[employer].com/fa q/TCE294 (This link is being provided for informational/ educat ional purposes only.) This test was developed and its analyti vick performance characteristics have been determined by [facility]. It has not been manuel red or approved by the US Food and Drug Administration. This assay has been validated pursuant to the CLIA regulations and is used for clinical purposes. Specimen Anatomical Collection Method Collection Time Receive d Time (Source) Location / / Volume Laterality Blood specimen Blood / Unknown 05/15/2019 8:27 2018 (specimen) AM PST 3:28 AM PST Jessica Smith MD LAB - BLOOD DRAW Performing Organization Address City/State/ZIP Code Phon e Number [facility] [address] [place], [place] [id number] [phone] [place] [employer] [place] [address] [place] [address] [place] documented in this encounter Visit Diagnoses Diagnosis Grief reaction - Primary Adjustment disorder with depressed mood Nasal sinus congestion Other diseases of nasal cavity and sinus es Partner relationship problems Counseling for marital and partner probl ems, unspecified Testosterone deficiency in male Elevated prostate specific antigen (PSA) Class 2 obesity without serious comorbid ity with body mass index (BMI) of 37.0 to 37.9 in adult, unspecified obesity type Other specified hypothyroidism Personal history of other endocrine, nut ritional and metabolic disease Encounter for screening for malignant ne oplasm of prostate Special screening for malignant neoplasm of prostate documented in this encounter Additional Health Concerns Assessment Noted Time PHQ-9 Depression Total Score: 4 03/09/2019 2:17 PM PD T documented as of this encounter 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
--- OUTSIDE RECORDS SUMMARY | 2021-04-17 03:18 | XMS_ITS | Encounter Summary ---
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 Elevated prostate specific antigen (PSA) ; [address] Hypothyroid ism, unspecified type; [place] Obstructive sleep apnea; [place] Testo sterone deficiency [phone] Social History Tobacco Use Types Packs/Day Years [...] Sign Reading Time Taken Comments Blood Pressure 156/85 04/25/2018 3:45 PM PST Pulse 71 04/25/2018 3:45 PM PST Temperature - - Respiratory Rate 14 04/25/2018 3:45 PM PST Oxygen Saturation 96% 04/25/2018 3:45 PM PST Inhaled Oxygen Concentration - - Weight 112 kg (247 lb) 04/25/2018 3:45 PM PST Height - - Body Mass Index 35.44 04/26/2017 3:07 PM PST documented in this encounter Progress Notes Lior Luz MD - 04/25/2018 3:48 PM PST CHIEF COMPLAINT Follow Up HISTORY OF PRESENT ILLNESS Dinesh Rodriguez is a 67 year old male who comes to clinic today for Follow Up Doing well on Synthroid 100. 6 days of the week. His TSH was higher and 7 days a week is inedicated. He had prostate biopsy with benign results only. He wonders about feadibility of Testosterone supplemenation. We will check PSA and testosterone with next labs. He does well on the CPAP He needs 2. Shignrix vaccine. AAA was ruled out. PHYSICAL EXAM VS: 04/25/2018 3:45 PM BP 156/85 Weight 247 lb (112 kg) General: well developed, well nourished and well hydrated in no acute distress Head: normocephalic and atraumatic Eyes: EOMI, PERRL, cunjunctivae clear Neck: supple, FROM Extremities: no clubbing, cyanosis or edema Neurological: no focal deficits Psychological: A&Ox3, normal mood and affect ASSESSMENT/PLAN Follow Up 2. Shingrix vaccine today. Have labs including PSA and Testosterone in mid July. See Dr. Luz in 3 months or sooner if needed documented in this encounter Plan of Treatment Not on filedocumented as of this encounter Results GONADOTROPIN; LUTEINIZING HORMONE (LH) (07/22/2018 8:50 AM PST) P athologist Signature LH 2.6 1.6 - 15.2 [facility] mIU/mL [facility] Specimen Anatomical Collection Method Collection Time Receive d Time (Source) Location / / Volume Laterality Blood specimen Blood / Unknown 07/22/2018 8:50 2018 (specimen) AM PST 1:07 AM PST Narrative [facility] - 9 6:55 PM PST Performing Organization Information: [[id number]] ??: ??[facility] , [address] [place] [phone] Director: LUBA ROSE MD Lior Luz MD LAB - BLOOD DRAW Performing Organization Address City/State/ZIP Code Phon e Number [facility] [place] [phone] PATERSON PROSTATE SPECIFIC ANTIGEN (PSA); TOTAL (07/22/2018 8:50 AM PST) athologist Signature PSA, PROSTATIC 7.9 (H) LESS THAN [place] SPECIFIC AG 4 NG/ML [facility] Comment: THE TOTAL PSA IMMUNOASSAY IS A SCREENING AID IN THE DETECTION OF PROSTATE CANCER IN CONJ UNCTION WITH ANGELINA AND OTHER DIAGNOSTIC FINDINGS. Specimen Anatomical Collection Method Collection Time Receive d Time (Source) Location / / Volume Laterality Blood specimen Blood / Unknown 07/22/2018 8:50 2018 (specimen) AM PST 9:20 AM PST Narrative [facility] CL[facility]ICAL [facility] - 09/2018 12:13 PM PST FASTING Lior Luz MD LAB - BLOOD DRAW Performing Organization Address City/[facility]/ZIP Code Phon e Number [facility] [address] [place] [address] CLINICAL LAB [place] [facility] 3, 1ST [place] COMPRE METAB PANEL (07/22/2018 8:50 AM PST) athologist Signature SODIUM 137 136 - 145 [place] MEQ/L [facility] POTASSIUM 4.5 3.5 - 5.1 [place] MEQ/L [facility] CHLORIDE 103 98 - 107 [place] MEQ/L [facility] CARBON DIOXIDE 27 21 - 31 [place] MEQ/L [facility] ANION GAP 11.5 10.0 - [facility] MEQ/L [facility] UREA NITROGEN 22 7 - 25 [place] MG/DL [facility] CREATININE, 0.93 0.60 - [place] SERUM 1.30 MG/DL [facility] GFR ESTIMATE >60 >OR = 60 [place] mL/min [facility] Comment: ? GFR REFERENC E RANGE: >OR=60 mL/min/1.73m2 ? IF RESULT OF GFR IS <60 AND THE PATIENT IS ? AMER ICAN, MULTIPLY RESULT BY 1.210 ? CALCULATION UPDATED 01/20/2010 ? REFERENCE: N KDEP 11/16/2009 GLUCOSE 102 (H) FAST < 100 MG/DL [facility] CLIN[facility] LAB CALCIUM 9.3 8.2 - 10.0 MG/DL [facility] BILIRUBIN, TOTAL 0.5 0.3 - 1.0 MG/DL [facility] CLINICAL LAB ALKALINE PHOSPHATASE 73 40 - 115 U/L [facility] SGPT/ALT 39 7 - 52 U/L [place] COUNT Y CLINICAL LAB Comment: PATIENTS TREATED WITH SULFASALAZINE MAY GENERATE A FALSE LOW RESULT FOR ALT SGOT/AST 22 13 - 39 U/L [facility] CLINICAL LAB TOTAL PROTEIN 6.6 6.4 - 8.9 G/DL [facility] CLINICAL LAB ALBUMIN 4.2 3.5 - 5.7 G/DL [facility] CLINICAL LAB GLOBULIN 2.4 2.0 - 4.1 G/DL [facility] CLINICAL LAB A/G RATIO 1.8 1.1 - 2.2 [facility] Specimen Anatomical Collection Method Collection Time Receive d Time (Source) Location / / Volume Laterality Blood specimen Blood / Unknown 07/22/2018 8:50 2018 (specimen) AM PST 9:20 AM PST Narrative [facility] - 0309/2018 10:54 AM PST FASTING Lior Luz MD LAB - BLOOD DRAW Performing Organization Address City/State/ZIP Code Phon e Number [facility] [address] [place] [address] CLINICAL LAB [place] [address], [place] THYROID PANEL 1 (TSH+FT4) (07/22/2018 8:50 AM PST) athologist Signature TSH, ULTRA 0.842 0.55 - [place] SENS. 4.78 [place] uIU/ML CLINICAL LAB Comment: ?REFERENCE RAN GE NOT AVAILABLE ?FOR AGES: NEW BORN TO 23 MONTHS. FREE THYROXINE 1.10 0.89 - 1.76 NG/DL [facility] CLINICAL LAB Comment: ADULT RANGES Specimen Anatomical Collection Method Collection Time Receive d Time (Source) Location / / Volume Laterality Blood specimen Blood / Unknown 07/22/2018 8:50 2018 (specimen) AM PST 9:20 AM PST Narrative [facility] - 09/2018 10:54 AM PST FASTING Lior Luz MD LAB - BLOOD DRAW Performing Organization Address City/State/ZIP Code Phon e Number [facility] [address] [place] [address] CLINICAL LAB [place] BLDG [place] TESTOSTERONE, FREE AND TOTAL (07/22/2018 8:50 AM PST) P athologist Signature TESTOSTERONE, 333 250 - [facility] TOTAL, 1,100 LABORATORIES LC/MS/MS ng/dL [facility] Comment: ??Men with clinically significant hypog onadal symptoms and testosterone values repeatedly in the ra nge of the 200-300 ng/dL or less, may benefit from testosterone t reatment after adequate risk and benefits counseling. FREE TESTOSTERONE 46.1 35.0 - 155.0 pg/mL [facility] Comment: ??Data from J Clin Invest 1974:53:819 -828 and J Clin Endocrinol Metab 1973;36:1859-7367. Men with clinic ally significant hypogonadal symptoms and testosterone va lues repeatedly in the range of the 200-300 ng/dL or less, may benefit from testosterone treatment after adequate risk and benefi ts counseling. For additional information, please refe r to http://education.Cotopaxi.CoolClouds/fa q/DID452 (This link is being provided for informational/ educat ional purposes only.) This test was developed and its analyti vick performance characteristics have been determined by [employer]. It has not been manuel red or approved by the US Food and Drug Administration. This assay has been validated pursuant to the CLIA regulations and is used for clinical purposes. Specimen Anatomical Collection Method Collection Time Receive d Time (Source) Location / / Volume Laterality Blood specimen Blood / Unknown 07/22/2018 8:50 2018 (specimen) AM PST 1:07 AM PST Narrative [facility] - 2018 6:55 PM PST Performing Organization Information: [[id number]] ??: ??[facility] [place], [address] [place] [address] Director: MIRIAM CISNEROS MD,PHD Lior Luz MD LAB - BLOOD DRAW Performing Organization Address City/State/ZIP Code Phon e Number [facility] [address] [address] documented in this encounter Visit Diagnoses Diagnosis Need for vaccination - Primary Need for prophylactic vaccination and in oculation against unspecified single disease Elevated prostate specific antigen (PSA) Hypothyroidism, unspecified type Obstructive sleep apnea Obstructive sleep apnea (adult) (pediatr ic) Testosterone deficiency Other testicular hypofunction documented in this encounter Care Teams Epic Ambulatory Analysts Relationship Specialty Start Date End Date Lior Luz MD PCP - General Internal Medicine 07/19/17 01/16/21 [facility] [place] [address] documented as of this encounter
--- OUTSIDE RECORDS SUMMARY | 2021-04-17 03:18 | XMS_ITS | Encounter Summary ---
:1950 Author Organization [facility] [place] [address] Care Team Providers Name Role Phone MD Sukh Primary Care Provider Encounter Details Date Type Department Care Team Description 06/29/2019 Interim Notes [facility] La Nena Abernathy LCSW [address] [place] [address] [place] [phone] (Wo rk) Social History Tobacco Use Types [...] Notes La Nena Abernathy LCSW - 06/29/2019 9:08 AM PST Pt inactive to behavioral health. taken off care team. documented in this encounter Plan of Treatment [...] documented as of this encounter Care Teams Tack Cleaner Relationship Specialty Start Date End Date Lior Luz MD PCP - General Internal Medicine 07/19/17 01/16/21 [facility] [place] [address] documented as of this encounter
--- OUTSIDE RECORDS SUMMARY | 2021-04-17 03:18 | XMS_ITS | Encounter Summary ---
:1950 Author Organization [facility] [place] [address] Care Team Providers Name Role Phone MD Sukh Primary Care Provider Encounter Details Date Type Department Care Team Description 06/02/2019 Interim Notes [facility] La Nena Abernathy LCSW [address] [place] [phone] (Wo rk) Social History Tobacco Use Types [...] Progress Notes La Nena Abernathy LCSW - 06/02/2019 2:32 PM PST Pt active to behavioral health. added to care team. documented in this encounter Plan [...] documented as of this encounter Care Teams Meteorological Technician Relationship Specialty Start Date End Date Lior Luz MD PCP - General Internal Medicine 07/19/17 01/16/21 [facility] [place] [address] documented as of this encounter
--- OUTSIDE RECORDS SUMMARY | 2021-04-17 03:18 | XMS_ITS | Encounter Summary ---
:1950 Author Organization [facility] [place] [address] Care Team Providers Name Role Phone MD Sukh Primary Care Provider Reason for Visit Reason Comments Follow Up Encounter Details Date Type Department Care Team Description 2018 [facility] [place] Hyp othyroidism, unspecified type (Primary Dx); CONSERVATION POLICY ANALYST Need for vaccination; [address] [place] [address] Screening for diabetes ita [place], [place] [address] [place], [place] [phone] Social History Tobacco Use Types Packs/Day Years [...] Sign Reading Time Taken Comments Blood Pressure 124/75 2018 3:41 PM PDT Pulse 69 2018 3:41 PM PDT Temperature - - Respiratory Rate 14 2018 3:41 PM PDT Oxygen Saturation 97% 2018 3:41 PM PDT Inhaled Oxygen Concentration - - Weight 110.7 kg (244 lb) 2018 3:41 PM PDT Height - - Body Mass Index 35.01 04/26/2017 3:07 PM PST documented in this encounter Progress Notes Lior Luz MD - 2018 3:44 PM PDT CHIEF COMPLAINT Follow Up HISTORY OF PRESENT ILLNESS Dinesh Rodriguez is a 67 year old male who comes to clinic today for Follow Up Doing well on Synthroid 100. 6 days of the week. He feels more energetic. fT4 improved on lower dose. No palpitations He had prostate biopsy with benign results only. He is due for AAA screening. He needs Shignrix vaccines. He requests a hearing test for worsening hearing loss. PHYSICAL EXAM VS: 2018 3:41 PM BP 124/75 Weight 244 lb (110.7 kg) General: well developed, well nourished and well hydrated in no acute distress Head: normocephalic and atraumatic Eyes: EOMI, PERRL, cunjunctivae clear Neck: supple, FROM Extremities: no clubbing, cyanosis or edema Neurological: no focal deficits Psychological: A&Ox3, normal mood and affect ASSESSMENT/PLAN Follow Up Use Sarna lotion on skin lesions. Shingrix vaccine today. Have Ultrasound on aorta at [facility] Have hearing test. Labs in 3 months before next visit See Dr. Luz in 12 weeks documented in this encounter Plan of Treatment Not on filedocumented as of this encounter Results THYROID PANEL 1 (TSH+FT4) (04/15/2018 8:27 AM PST) athologist Signature TSH, ULTRA 1.883 0.55 - [place] SENS. 4.78 [place] uIU/ML CLINICAL LAB Comment: ?REFERENCE RAN GE NOT AVAILABLE ?FOR AGES: NEW BORN TO 23 MONTHS. FREE THYROXINE 1.05 0.89 - 1.76 NG/DL [facility] CLINICAL LAB Comment: ADULT RANGES Specimen Anatomical Collection Method Collection Time Receive d Time (Source) Location / / Volume Laterality Blood specimen Blood / Unknown 04/15/2018 8:27 2017 (specimen) AM PST 8:30 AM PST Narrative [facility] CLINICAL LAB - 03/21 10:30 AM PST NON-FASTING Lior Luz MD LAB - BLOOD DRAW Performing Organization Address City/State/ZIP Code Phon e Number [facility] [address] [place] [address] CLINICAL LAB [place] BLDG 3, 1ST [place] COMPRE METAB PANEL (04/15/2018 8:27 AM PST) athologist Signature SODIUM 138 136 - 145 [place] MEQ/L [facility] POTASSIUM 4.5 3.5 - 5.1 [place] MEQ/L [facility] CHLORIDE 105 98 - 107 [place] MEQ/L [facility] CARBON DIOXIDE 28 21 - 31 [place] MEQ/L [facility] ANION GAP 9.5 (L) 10.0 - [place] 20.0 MEQ/L [facility] UREA NITROGEN 34 (H) 7 - 25 [place] MG/DL [facility] CREATININE, 1.00 0.60 - [place] SERUM 1.30 MG/DL [facility] GFR ESTIMATE >60 >OR = 60 [place] mL/min [facility] Comment: ? GFR REFERENC E RANGE: >OR=60 mL/min/1.73m2 ? IF RESULT OF GFR IS <60 AND THE PATIENT IS ? AMER ICAN, MULTIPLY RESULT BY 1.210 ? CALCULATION UPDATED 01/20/2010 ? REFERENCE: N KDEP 11/16/2009 GLUCOSE 103 (H) FAST < 100 MG/DL [facility] CLINICAL LAB CALCIUM 9.1 8.2 - 10.0 MG/DL [facility] CLINICAL LAB BILIRUBIN, TOTAL 0.6 0.3 - 1.0 MG/DL [facility] CLINICAL LAB ALKALINE PHOSPHATASE 78 40 - 115 U/L [facility] CLINICAL LAB SGPT/ALT 37 7 - 52 U/L [facility] COUNT Y CLINICAL LAB Comment: PATIENTS TREATED WITH SULFASALAZINE MAY GENERATE A FALSE LOW RESULT FOR ALT SGOT/AST 26 13 - 39 U/L [facility] CLINICAL LAB TOTAL PROTEIN 6.4 6.4 - 8.9 G/DL [facility] CLINICAL LAB ALBUMIN 4.4 3.5 - 5.7 G/DL [facility] GLOBULIN 2.0 2.0 - 4.1 G/DL [facility] A/G RATIO 2.2 1.1 - 2.2 [facility] CLINICAL LAB Specimen Anatomical Collection Method Collection Time Receive d Time (Source) Location / / Volume Laterality Blood specimen Blood / Unknown 04/15/2018 8:27 2017 (specimen) AM PST 8:30 AM PST Narrative [facility] CLINICAL LAB - 03/21 10:29 AM PST NON-FASTING Lior Luz MD LAB - BLOOD DRAW Performing Organization Address City/State/ZIP Code Phon e Number [facility] [address] [place] [address] CLINICAL LAB [place] [facility] [place] CBC WITH AUTO DIFF (04/15/2018 8:27 AM PST) [facility] gist Method Time Signature WBC 6.2 4.5 - 10.0 [place] K/uL [facility] CL[facility] RBC 4.56 4.40 - [place] 6.00 M/uL [facility] HEMOGLOBIN 13.8 (L) 14.5 - [place] 17.0 G/DL [facility] HEMATOCRIT 41.7 (L) 42.0 - [place] 54.0 % [facility] MCV 91.5 82.0 - [place] 99.0 [facility] CLINICAL LAB MCH 30.3 26.0 - [place] 32.0 PG [facility] CL[facility]ICAL LAB MCHC 33.1 31.0 - [place] 36.0 G/DL [facility] RDW 12.8 11.5 - [place] 15.0 % [facility] LAB PLATELET COUNT 204 150 - 450 [facility] CLINICAL LAB MPV 9.6 7.4 - 10.4 [facility] CLINICAL LAB NEUTROPHILS 56.7 50.0 - [place] 70.0 % [facility] CL[facility]ICAL LAB LYMPHOCYTES 30.4 25.0 - [place] 45.0 [facility] CLINICAL LAB MONOCYTES 8.3 1.0 - 12.0 [facility] CLINICAL LAB EOSINOPHILS 2.9 0.0 - 6.0 [facility] CLINICAL LAB BASOPHILS 1.7 0.0 - 2.0 [facility] CLINICAL LAB ABS. NEUTROPHILS 3.5 1.4 - 6.5 [facility] CLINICAL LAB ABS. LYMPHOCYTES 1.9 1.2 - 3.4 [facility] CLINICAL LAB ABS. MONOCYTES 0.5 0.1 - 0.6 [facility] CLINICAL LAB ABS. EOSINOPHILS 0.2 0.0 - 0.4 [facility] CLINICAL LAB ABS. BASOPHILS 0.1 0.0 - 0.2 [facility] CLINICAL LAB Comment: Specimen Anatomical Collection Method Collection Time Receive d Time (Source) Location / / Volume Laterality Blood specimen Blood / Unknown 04/15/2018 8:27 2017 (specimen) AM PST 8:30 AM PST Narrative [facility] CLINICAL LAB - 03/21 9:34 AM PST NON-FASTING Lior Luz MD LAB - BLOOD DRAW Performing Organization Address City/State/ZIP Code Phon e Number [facility] [address] [place] [address] CLINICAL LAB [place] [facility] [place] HEMOGLOBIN, GLYCOSYLATED (A1C) (04/15/2018 8:27 AM PST) P athologist Signature GLYCOSYLATED HGB 5.7 <6.0 % [place] (A1C) [facility] Comment: THE [employer] SUGGES MAGAL[place] INTERPRETIVE GUIDELINES FOR NON- ADULTS HGB A1C % ? GLUCOSE C ONTROL INDEX GREATER THAN 8.0 ? ADDITIONAL ACT ION SUGGESTED LESS THAN 7.0 ?GOAL LESS THAN 6.0 ?NORMAL Specimen Anatomical Collection Method Collection Time Receive d Time (Source) Location / / Volume Laterality Blood specimen Blood / Unknown 04/15/2018 8:27 2017 (specimen) AM PST 8:29 AM PST Lior Luz MD LAB - BLOOD DRAW Performing Organization Address City/State/ZIP Code Phon e Number [address] [address] CLINICAL LAB [facility] [place] documented in this encounter Visit Diagnoses Diagnosis Hypothyroidism, unspecified type - Prima ry Need for vaccination Need for prophylactic vaccination and in oculation against unspecified single disease Screening for diabetes mellitus documented in this encounter Care Teams [employer]ura Technical Lead Senior Developer Relationship Specialty Start Date End Date Lior Luz MD PCP - General Internal Medicine 07/19/17 01/16/21 [address] [place] [phone] documented as of this encounter
--- OUTSIDE RECORDS SUMMARY | 2021-04-17 03:18 | XMS_ITS | Encounter Summary ---
:1950 Author Organization [facility] [place] [address] Care Team Providers Name Role Phone MD Sukh Primary Care Provider Reason for Visit Reason Comments Behavioral Health Problem Encounter Details Date Type Department Care Team Description 04/27/2019 Behavioral Health [facility] La Nena Medina Adjustme nt disorder Visit [facility] with anxious mood - [address] [place] (P rimary [place] Dx) [facility] [address] [place] [address] [phone] Social History Tobacco Use Types Packs/Day Years [...] Instructions Patient InstructionsLa Nena Abernathy LCSW - 04/27/2019 9:57 AM PST Goals as of 04/27/2019 at 9:57 AM ??? decrease anxiety (pt-stated) 1.) Continue [...] Progress Notes La Nena Abernathy LCSW - 04/27/2019 9:28 AM PST Dinesh Rodriguez is a 69 year old male patient of Lior Luz MD who presents for a follow up visit for symptoms of adjustment d/o with anxiety. Current symptoms include: Patient reports the following symptoms: poor sleep, feeling bad about self, anxiety, nervousness, worry, racing thoughts, fear and frustration. Symptoms which worsened: Pt reported sxs of anxiety worsened and then decreased when he started working on shifting his self talk. Symptoms which improved: Pt reported after he worked on shifting self talk over the weekend, he started feeling less anxious. Patient's subjective view: Pt reported insomnia over the weekend, had a lot of contact with ex-gf in [place] which triggered anxiety, finished podcast site, and then he shifted the self talk of negative victimhood by re-focusing on his plan, and he felt better as per pt. Pt reported he is consideringrenting a room in [place] to establish residency even before he gets low income housing there, feelshe now manages the situation to feel safer, and is working on starting a new life. PHQ9 Score: PHQ-9 Total Score (Auto Calculated) 4 at 03/09/2019 2:17 PM PHQ9 Severity:0-4: Normal PHQ9 Plan: 0-4: No action Required ELIOT 7 Score: 03/19/2019 8:32 AM Eliot-7 Total (!) 14 moderate anxiety Coping skills: watching DIY videos, going for walks, starting to work on shifting negative self talk. MENTAL STATUS EXAM - (WNL=Within Normal Limits) Appearance: WNL Body Movement: normal Behavior: cooperative Speech: WNL Emotional State/Mood: anxious Emotional State/Affect: anxious, consistent to mood Thought Content: WNL, worry Thought Process: WNL Intellectual Functioning: normal Orientation: WNL Sensorium/Cognition/Memory: WNL Insight: WNL Judgment/Impaired Ability to Make Reasonable Decisions: WNL Assessment: It appears pt is experiencing sxs of an adjustment d/o with moderate anxiety 2ndary to end of relationship with girlfriend. It appears pt's sxs of anxiety have started to decrease with use of new cognitive skills and starting to work on shifting negative self talk. Continue to assess. Intervention: This video games storywriter provided education on relaxation exercises including guided imagery and deep breathing, conducted cognitive work including assisting patient in identifying how thoughts impactmood and behavior and identifying ways to shift thoughts to improve mood, encouraged physical exercise to improve mood and provided active listening, support, and validation of feelings. This video games storywriter provided positive feedback and encouragement for efforts made to start working on shifting negative self talk and to walk daily. Progress on goals: This video games storywriter reviewed goals with pt. Pt reported he worked on shifting thoughts and this helped a lot, was most helpful compared to other goals as per pt, has been going for walks daily, tried doing yoga, it was uncomfortable but still will do it, watching DIY videos for relaxation, didn't do relaxation exercises but got a book on meditation and plans to start practicing relaxation exercises this week. Patient Response: receptive. This video games storywriter worked with pt to review and revise [...] documented as of this encounter Care Teams Timber Estimator Relationship Specialty Start Date End Date Lior Luz MD PCP - General Internal Medicine 07/19/17 01/16/21 [address] [place] [phone] documented as of this encounter
--- OUTSIDE RECORDS SUMMARY | 2021-04-17 03:18 | XMS_ITS | Encounter Summary ---
:1950 Author Organization [facility] [place] [address] Care Team Providers Name Role Phone MD Sukh Primary Care Provider Reason for Visit Reason Comments Urgent Care UC: BP check Encounter Details Date Type Department Care Team Description 07/22/2019 Office Visit [facility] Anne Simeon ed, MD Essential hypertension PRIMARY CARE [address] (Primary Dx) [address] [place] [phone] Social History Tobacco Use Types Packs/Day Years [...] Mass Index 35.44 07/22/2019 10:13 AM PST documented in this encounter Patient Instructions Patient InstructionsAntione Davidson MD - 07/22/2019 10:46 AM PST Go to the Pharmacy for your new medication LOTREL and start taking 1 capsule every day INSTEAD of the amlodipine. This new medication will have the amlodipine in it plus the new medication benazepril. documented in this encounter Progress Notes Antione Davidson MD - 07/22/2019 10:40 AM PST Dinesh Rodriguez is a 69 year old male here for HTN. Amlodipine started in May and well tolerated. Takes with levothyroxine in AM on empty stomach.He notes lightheadedness as well as ear hissing and pressure. Saw Dr. Nye, ENT, and placed on antibiotics for 10 days for sinusitis which may be cause of symptoms. OBJECTIVE: Vitals: 07/22/19 1013 BP: (!) 165/70 Pulse: 64 Resp: 18 Temp: 97 ??F (36.1 ??C) TempSrc: Oral SpO2: 98% Weight: 240 lb (108.9 kg) Height: 5' 9 (1.753 m) Body mass index is 35.44 kg/m??. Physical Exam Constitutional: He appears well-developed and well-nourished. Psychiatric: He has a normal mood and affect. His behavior is normal. Current Outpatient Medications Medication Sig Dispense Refill ??? amLODIPine-benazepriL (LOTREL) 5-10 mg per capsule Take 1 Cap by mouth once daily 30 Cap 1 ??? levothyroxine 100 mcg tablet TAKE 1 TABLET BY MOUTH EVERY DAY 90 Tab 3 ??? fluticasone propionate (FLONASE) 50 mcg/actuation nasal spray Place 1 [place] in both nostrils once daily 16 g 2 ??? loratadine (CLARITIN) 10 mg tablet Take 1 Tab by mouth once daily as needed for allergies 30 Tab2 ??? wmofoblj-vkkqganbr-BB (CORTISPORIN) 3.5-10,000-1 mg/mL-unit/mL-% otic suspension Place 5 Drops into the right ear 4 (four) times daily 10 mL 0 ??? sildenafil (VIAGRA) 100 mg tablet Instructions: 1/2 to 1 tablet daily, 30 min - 4 hours before activity, as needed No current facility-administered medications for this visit. ASSESSMENT/PLAN: Problem List Items Addressed This Visit High Essential hypertension - Primary Last 3 BP Readings: Date: BP: 07/22/2019 165/70 05/25/2019 187/104 03/09/2019 161/95 Amlodipine 5 mg started 05/25/19 and well tolerated. BP not at goal. My recommendation is to start additional agent and he agrees. Given his desire for low pill burden I will switch the amlodipine to LOTREL (amlo 5 - benazepril 10) once daily. Recommend BMP in 2-3 months once dose and BP goals reached. Side effects (renal, hyperkalemia, etc) discussed. RTC 4 weeks for BP recheck an dose adjustments if needed. Relevant Medications amLODIPine-benazepriL (LOTREL) 5-10 mg per capsule documented in this encounter Miscellaneous Notes Assessment & Plan Note - Antione Davidson MD - 07/22/2019 11:04 AM PST Associated Problem(s): Essential hypertension Last 3 BP Readings: Date: BP: 07/22/2019 165/70 05/25/2019 187/104 03/09/2019 161/95 Amlodipine 5 mg started 05/25/19 and well tolerated. BP not at goal. My recommendation is to start additional agent and he agrees. Given his desire for low pill burden I will switch the amlodipine to LOTREL (amlo 5 - benazepril 10) once daily. Recommend BMP in 2-3 months once dose and BP goals reached. Side effects (renal, hyperkalemia, etc) discussed. RTC 4 weeks for BP recheck an dose adjustments if needed. documented in this encounter Plan of [...] this encounter Visit Diagnoses Diagnosis Essential hypertension - Primary documented in this encounter Additional Health Concerns Assessment Noted Time PHQ-9 Depression Total Score: 0 05/25/2019 10:22 AM PS T documented as of this encounter Care Teams Bariatric Program Coordinator Relationship Specialty Start Date End Date Lior Luz MD PCP - General Internal Medicine 07/19/17 01/16/21 [facility] [place] [phone] documented as of this encounter
--- OUTSIDE RECORDS SUMMARY | 2021-04-17 03:18 | XMS_ITS | Encounter Summary ---
:1950 Author Organization [facility] Address [place] [address] Care Team Providers Name Role Phone MD Sukh Primary Care Provider Reason for Visit Reason Comments Follow Up Lab Result Test Results Encounter Details Date Type Department Care Team Description 07/[facility] Tes tosterone deficiency in male (Primary Dx); SOFTWARE TOOLS ENGINEER Elevated prostate specific antigen (PSA) ; [address] Hypothyroid ism, unspecified type; REMEDIO REMEDIO Class 2 obesity without serious comorbid ity with body mass index (BMI) of 37.0 to 37.9 in adult, [place] [phone] Social History Tobacco Use Types Packs/Day Years [...] Sign Reading Time Taken Comments Blood Pressure 142/106 07/25/2018 3:45 PM PST Pulse 70 07/25/2018 3:45 PM PST Temperature 36.8 ??C (98.2 ??F) 07/25/2018 3:45 PM PST Respiratory Rate 13 07/25/2018 3:45 PM PST Oxygen Saturation - - Inhaled Oxygen Concentration - - Weight 115.9 kg (255 lb 8 oz) 07/25/2018 3:45 PM PST Height 175.3 cm (5' 9) 07/25/2018 3:45 PM PST Body Mass Index 37.73 07/25/2018 3:45 PM PST documented in this encounter Patient Instructions Patient InstructionsLior Luz MD - 07/25/2018 4:26 PM PST Continue current medications. Skip Dinner Have labsTestosterone in mid October. See Dr. Luz in 3 months or sooner if needed documented in this encounter Progress Notes Lior Luz MD - 07/25/2018 4:06 PM PST CHIEF COMPLAINT Follow Up; Lab Result; and Test Results HISTORY OF PRESENT ILLNESS Dinesh Rodriguez is a 67 year old male who comes to clinic today for Follow Up; Lab Result; and Test Results Still doing well on Synthroid 100 PSA down trending. Lab Results Component Value Date PSA 7.9 (H) 07/22/2018 He had prostate biopsy with benign results only. He wonders about feasibility of Testosterone supplemenation. He has ED and sarcopenia, he feels grumpy and unable to lose weight despite eating less. He does well on the CPAP PHYSICAL EXAM VS: 07/25/2018 3:45 PM BP (!) 142/106 Weight 255 lb 8 oz (115.9 kg) General: well developed, well nourished and well hydrated in no acute distress Head: normocephalic and atraumatic Eyes: EOMI, PERRL, cunjunctivae clear Neck: supple, FROM Extremities: no clubbing, cyanosis or edema Neurological: no focal deficits Psychological: A&Ox3, normal mood and affect ASSESSMENT/PLAN Follow Up; Lab Result; and Test Results Continue current medications. Skip Dinner Have labsTestosterone in mid October. See Dr. Luz in 3 months or sooner if needed documented in this encounter Plan of Treatment Not on filedocumented as of this encounter Visit Diagnoses Diagnosis Testosterone deficiency in male - Primar y Elevated prostate specific antigen (PSA) Hypothyroidism, unspecified type Class 2 obesity without serious comorbid ity with body mass index (BMI) of 37.0 to 37.9 in adult, unspecified obesity type documented in this encounter Care Teams Aviation Operations Specialist Relationship Specialty Start Date End Date Lior Luz MD PCP - General Internal Medicine 07/19/17 01/16/21 [facility] [place] [address] documented as of this encounter
--- OUTSIDE RECORDS SUMMARY | 2021-04-17 03:18 | XMS_ITS | Encounter Summary ---
:1950 Author Organization [facility] [place] [address] Care Team Providers Name Role Phone MD Sukh Primary Care Provider Reason for Visit Reason Comments Behavioral Health Problem Encounter Details Date Type Department Care Team Description 06/01/2019 Behavioral Health [facility] [place] Nena Medina Adjustme nt disorder Visit [facility] with anxious mood - [address] (P rimary [place]EDIO Remedio Dx) [facility] [address] [place] [address] [phone] Social History Tobacco Use Types Packs/Day Years [...] Instructions Patient InstructionsLa Nena Abernathy LCSW - 06/01/2019 9:25 AM PST Goals as of 06/01/2019 at 9:25 AM ??? decrease anxiety (pt-stated) 1.) Continue paying attention to your self talk every day, and start using coping thoughts this week. 2.) Continue to go for walks for at least 30 minutes per day. 3.) Continue doing yoga at least once for at least 30 minutes this week. 4.) Continue to watch DIY videos which you find relaxing at least 3 times this week. 5.) Continue to practicing relaxation exercises for at least 10 minutes per day. documented in this encounter Progress Notes La Nena Abernathy LCSW - 06/01/2019 8:56 AM PST Dinesh Rodriguez is a 69 year old male patient of Lior Luz MD who presents for a follow up visit for symptoms of adjustment d/o with anxiety. Current symptoms include: Patient reports the following symptoms: anxiety, nervousness and worry. Symptoms which worsened: None as per pt. Symptoms which improved: Pt reported decreased anxiety. Patient's subjective view: Pt reported he feels better emotionally overall, feels less anxious. However, pt reports he's now on meds for blood pressure, and feels some disappointment about that. 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 Pt reports he feels less anxious because he's focused on working on making his futuremore secure, making phone calls to make plans, and is walking in the mornings. Pt reports he feels the shock of the end of his relationship with his ex-gf is over, and pt is laying foundation for new life as per pt. Pt reports less panic, feels more relaxed. PHQ9 Score: PHQ-9 Total Score (Auto Calculated) 0 at 05/25/2019 10:22 AM PHQ-9 Total Score (Manual Entry) 0 at 05/25/2019 10:22 AM PHQ9 Severity:0-4: Normal PHQ9 Plan: 0-4: No action Required ELIOT 7 Score: 03/19/2019 8:32 AM Eliot-7 Total (!) 14 moderate anxiety Coping skills: shifting thoughts, deep breathing, walking, watching uplifting videos, yoga. MENTAL STATUS EXAM - (WNL=Within Normal Limits) Appearance: WNL Body Movement: normal Behavior: cooperative Speech: WNL Emotional State/Mood: WNL Emotional State/Affect: WNL, consistent to mood Thought Content: WNL Thought Process: WNL Intellectual Functioning: normal Orientation: WNL Sensorium/Cognition/Memory: alert Insight: WNL Judgment/Impaired Ability to Make Reasonable Decisions: WNL Assessment: It appears pt has been experiencing sxs of an adjustment d/o with anxiety, and it appears pt sxs of anxiety have been decreasing as per pt self report, and pt attributes it to shifting thoughts towards thoughts about making plans, as well as physical exercise. Continue to assess. Intervention: This policy writer typist encouraged physical exercise to improve mood, explored and encouraged activities which improve mood and provided active listening, support, and validation of feelings. This policy writer typist provided positive feedback and encouragement for efforts made to work on shifting thoughts and making new plans and walking daily. This policy writer typist discussed and explored pt interest in possibly getting new intermediate school teacher therapist in [place] after he moves there. Pt will consider. This policy writer typist discussed termination with pt as he has been experiencing decreased sxs, and pt in agreement with 1-2 more sessions. Progress on goals: This policy writer typist reviewed goals with pt. Pt reported working on shifting his thoughts, walking daily, did yoga 1x, continues to watch DIY videos, has been doing breathing exercises, and relaxation exercises he learned when he was acting. Patient Response: receptive. This policy writer typist worked with pt to review and revise treatment plan with goals, and plan is for pt to follow instructions. Plan to re-do gad7 at next session. documented in this encounter Plan of Treatment [...] documented as of this encounter Care Teams Japanese Interpreter Relationship Specialty Start Date End Date Lior Luz MD PCP - General Internal Medicine 07/19/17 01/16/21 [facility] [place] [phone] documented as of this encounter
--- OUTSIDE RECORDS SUMMARY | 2021-04-17 03:18 | XMS_ITS | Encounter Summary ---
:1950 Author Organization [facility] [place] [address] Care Team Providers Name Role Phone MD Sukh Primary Care Provider Encounter Details Date Type Department Care Team Description 06/29/2019 Travel Social History Tobacco Use Types Packs/Day [...] AM PST documented as of this encounter Plan of [...] documented as of this encounter Care Teams Medical Assembler Relationship Specialty Start Date End Date Lior Luz MD PCP - General Internal Medicine 07/19/17 01/16/21 [address] [facility] [place] [phone] documented as of this encounter
--- OUTSIDE RECORDS SUMMARY | 2021-04-17 03:39 | XMS_ITS | Encounter Summary ---
:1950 Author Organization [facility] [place] [address] Care Team Providers Name Role Phone Unavailable Primary Care Provider Unavailable Source Comments You are receiving this document because a patient has been referred to you or your facility after a visit at [facility]. The attached Continuity of Care Document (CCD) was sent in order to comply to federal meaningful use standards. The information has been automatically generated from our EHR ([email or web address]). If you require additional medical records beyond what is included in this CCD, please contact our Release of Information department at [facility] Encounter Details Date Type Department Care Team Description 07/01/2017 Orders Only [facility] Konrad Lewis MD DEPARTMENT [address] [place] [address] [place] [phone] ( Work) [phone] Social History Tobacco Use Types Packs/Day Years Used Date Never Assessed Sex Assigned at Date Recorded Not on file documented as of this encounter Plan of Treatment Not on filedocumented as of this encounter Visit Diagnoses Not on filedocumented in this encounter
--- OUTSIDE RECORDS SUMMARY | 2021-04-17 03:39 | XMS_ITS | Clinical Summary ---
:1950 Author Organization [facility] [place] [address] Care Team Providers Name Role Phone MD Sukh Primary Care Provider Allergies No known active allergies Medications Medication Sig Dispensed Refills Start Date End Date Status levothyroxine 0 06/25/2017 Activ e (SYNTHROID, LEVOTHROID) 100 MCG tablet levothyroxine Take 75 mcg by 0 A ctive (SYNTHROID, LEVOTHROID) mouth. 75 MCG tablet diazepam (VALIUM) 5 MG Take 3 tablets 3 tablet 0 06/28/2017 Active tabletIndications: (15mg) one hour Elevated PSA to prostate biopsy procedure. Obtain a ride (do not drive) to the biopsy. ciprofloxacin (CIPRO) Take one pill 12 4 tablet 0 07/01/2017 Active 750 MG tablet hours prior, one hour prior, 12 hours after, and 24 hours after procedure. Social History Tobacco Use Types Packs/Day Years Used Date Never Assessed Sex Assigned at Date Recorded Not on file Plan of Treatment Health Maintenance Due Date Last Done Comments COVID-19 Vaccine Series (1) 1964 FOBT / FIT 01/23/1982 Sigmoidoscopy 01/23/1982 Cologuard Stool DNA test 01/23/2002 Colon Cancer Screening 01/23/2002 Colonoscopy 01/23/2002 Adult Immunization: Pneumovax (Pneumonia) 01/23/2017 Zoster Vaccine (Shingrix): Adult Immunization (2 of 3) 8 2018 Depression Screening (PHQ-9) 05/20/2020 Fall Risk Screening 05/20/2020 Seasonal Flu Vaccination (2404-8046) (#1) 01/18/2021 Advance Directives Documents on File Type Date Recorded Patient Defensive Secondary Coach Explanati on Advance Directives and Living Will Power of Sulfur Chloride Operator Care Teams Payroll Accounting Clerk Relationship Specialty Start Date End Date Lior Luz MD PCP - General 07/29/[address] [place] [phone]
--- OUTSIDE RECORDS SUMMARY | 2021-04-17 03:39 | XMS_ITS | Encounter Summary ---
:1950 Author Organization [facility] [place] [address] Care Team Providers Name Role Phone MD Sukh Primary Care Provider Source Comments You are receiving this document because a patient has been referred to you or your facility after a visit at [facility]. The attached Continuity of Care Document (CCD) was sent in order to comply to federal meaningful use standards. The information has been automatically generated from our EHR ([email or web address]). If you require additional medical records beyond what is included in this CCD, please contact our Release of Information department at [facility] Encounter Details Date Type Department Care Team Description 07/30/2017 Orders Only [facility] Konrad Lewis MD Elevated PSA (Primary DEPARTMENT [address] Dx) [address] [place] [phone] Social History Tobacco Use Types Packs/Day Years Used Date Never Assessed Sex Assigned at Date Recorded Not on file documented as of this encounter Plan of Treatment Scheduled Orders Name Type Priority Associated Diagnoses Order S chedule PSA, Non-screening Lab Routine Elevated PSA Expected: 10/30/2017 (Approximate), Expires: 07/30/2018 documented as of this encounter Visit Diagnoses Diagnosis Elevated PSA - Primary Elevated prostate specific antigen (PSA) documented in this encounter Care Teams Payroll Technician Relationship Specialty Start Date End Date Lior Luz MD PCP - General 07/29/17 [facility] [place] [phone] documented as of this encounter
--- OUTSIDE RECORDS SUMMARY | 2021-04-17 03:39 | XMS_ITS | Encounter Summary ---
:1950 Author Organization [facility] [place] [address] Care Team Providers Name Role Phone Unavailable Primary Care Provider Unavailable Source Comments You are receiving this document because a patient has been referred to you or your facility after a visit at [facility]. The attached Continuity of Care Document (CCD) was sent in order to comply to federal meaningful use standards. The information has been automatically generated from our EHR ([employer]). If you require additional medical records beyond what is included in this CCD, please contact our Release of Information department at [facility] Reason for Visit Reason Onset Date Comments Elevated PSA 06/28/2017 Encounter Details Date Type Department Care Team Description 06/28/2017 Initial Consult [facility] Konrad Lewis MD Elevated PSA (Primary Dx); DEPARTMENT [address] BPH with obstruction/lower urinary tract symptoms [address] [place] [id number] [phone] Social History Tobacco Use Types Packs/Day Years Used Date Never Assessed Sex Assigned at Date Recorded Not on file documented as of this encounter Patient Instructions Patient InstructionsTobiKonrad mena MD - 06/28/2017 11:05 AM PST Images from the original note were not included. Prostate Biopsy and Ultrasound: About This Test What is it? A prostate biopsy is a type of test. Your doctor takes small tissue samples from your prostate gland. Then another doctor looks at the tissue under a microscope to see if there are cancer cells. This test is done by a doctor who specializes in men's genital and urinary problems (urologist). It can be done in your doctor's office, a day surgery clinic, or a hospital operating room. To get the tissue samples from the prostate, the doctor inserts a thin needle through the rectum, the urethra, or the area between the anus and scrotum (perineum). The most common method is through the rectum. Yourdoctor may use ultrasound to help guide the needle. Why is this test done? You may need a prostate biopsy if your doctor found something of concern during a digital rectal exam. Or you may need it if a blood test showed a high level of prostate-specific antigen (PSA). A biopsy can help find out if you have prostate cancer. How can you prepare for this test? Before you have a prostate biopsy, tell your doctor if: ?? You are taking any medicines or using any herbal supplements. ?? You are allergic to any medicines. ?? You have had bleeding problems, or you take aspirin or some other blood thinner. What happens before the test? ?? You may need to have an enema before the test. ?? You will need to take off all or most of your clothes. You will be given a cloth or paper gown touse during the test. ?? You may be given a sedative through a vein (IV) in your arm. The sedative will help you relax andstay still. What happens during the test? Through the rectum ?? You may be asked to kneel, lie on your side, or lie on your back. ?? Your doctor may inject an anesthetic around the prostate to numb the area before the sample is taken. ?? Ultrasound is often used to guide the needle to the correct spot. ?? Your doctor may choose to use a needle guide for the biopsy. He or she will attach the guide to theresepolo. Your doctor will insert the finger into your rectum. ?? The needle will enter the prostate and take 6 to 12 samples. Through the urethra ?? You will lie on your back. Your feet will rest in stirrups. ?? You will get anesthesia. The anesthesia may make you sleep. Or it may just numb the area being worked on. ?? Your doctor will insert a lighted scope (cystoscope) into your urethra. The scope allows your doctor to look directly at the prostate. Your doctor will pass a cutting loop through the scope to remove samples of prostate tissue. Through the perineum ?? You will lie on an exam table either on your side or on your back with your knees bent. You will get anesthesia. The anesthesia may make you sleep. Or it may just numb the area being worked on. ?? Your doctor will make a small cut in your perineum. Then he or she will insert a finger into the rectum to hold the prostate. ?? Your doctor will then insert the needle through the cut and into the prostate. ?? The needle collects samples of tissue and is then pulled out. What else should you know about this test? ?? A prostate biopsy has a slight risk of causing problems such as infection or bleeding. ?? If the biopsy went through your rectum, you may have a small amount of bleeding from your rectum for 2 to 3 days after the biopsy. ?? You may have a little pain in your pelvic area. You may also have a little blood in your urine for 1 to 5 days. ?? You may have some blood in your semen for a week or longer. How long will the test take? ?? This test will take about 15 to 45 minutes. What happens after the test? Your doctor will tell you what to expect and watch for after your test. In general: ?? If you have anesthesia that makes you sleep, you will be in a recovery room for a few hours. You will need someone to drive you home. You may feel tired for the rest of the day. ?? You will probably be able to go home right away. ?? If your doctor had you stop taking any medicine for the biopsy, ask him or her when you can starttaking it again. If you were given antibiotics, take them as directed. ?? Do not do heavy work or exercise for 4 hours after the test. ?? Your doctor will tell you how long it may take to get your results back. Follow-up care is a seymour part of your treatment and safety. Be sure to make and go to all appointments, and call your doctor if you are having problems. It's also a good idea to keep a list of the medicines you take. Ask your doctor when you can expect to have your test results. Where can you learn more? Go to the [employer] box on [employer], [email or web address].[email or web address]/OptiSynx/. Current as of: September 28, 2016 Content Version: 11.5 ?? [id number] [employer], [employer]. Care instructions adapted under license by [facility]. If you have questions about a medical condition or this instruction, always ask your healthcare professional. [employer] disclaims any warranty or liability for your use of this information. documented in this encounter Progress Notes Konrad Lewis MD - 06/28/2017 11:00 AM PST Please inform the patient that based on their rectal swab an antibiotic will be called in to their pharmacy, and they should begin taking it the day prior to their biopsy. oKonrad goldman MD - 06/28/2017 11:00 AM PST CHIEF COMPLAINT: Chief Complaint Patient presents with ??? Elevated PSA HPI: Dinesh Rodriguez is a 67 y.o. male who presents for elevated PSA. He states it was 8.7 over the last year increased from 6.3. Denies family history. He states his nocturia improved with CPAP, but he does have a weak stream. No dysuria, hematuria, or incontinence. He has longstanding ED. [employer] works partially. MEDICAL AND SURGICAL HISTORY: No past medical history on file. No past surgical history on file. MEDICATIONS: Current Outpatient Prescriptions Medication Sig ??? diazepam (VALIUM) 5 MG tablet Take 3 tablets (15mg) one hour to prostate biopsy procedure. Obtain a ride (do not drive) to the biopsy. ??? levothyroxine (SYNTHROID, LEVOTHROID) 100 MCG tablet ??? levothyroxine (SYNTHROID, LEVOTHROID) 75 MCG tablet Take 75 mcg by mouth. ALLERGIES: No Known Allergies SOCIAL HISTORY: FAMILY HISTORY: family history is not on file. REVIEW OF SYSTEMS: Patient has completed a 14 point review of systems which has been reviewed and is present in the media file of the [facility] patient chart. EXAM: GENERAL APPEARANCE: NAD, appropriate conversation NEUROLOGIC EXAM: Alert and oriented x 3, coordinated movements PSYCH: Appropriate conversation, normal affect HEENT: NCAT, sclera anicteric, mucus membranes moist NECK: Supple ABDOMEN: Soft, NT, ND, no hepatosplenomegaly or masses palpated BACK: No CVA TTP : Normal phallus. Testes descended bilaterally without masses or tenderness. Cord structures onboth sides are palpably normal. No hernias palpated. RECTAL: 40gm prostate without discrete nodules or tenderness EXTREMITIES: No edema, no cyanosis DIAGNOSTICS REVIEW: Lab Results Component Value Date SPECGRAV 1.015 06/28/2017 RBCUR Negative 06/28/2017 PROTEINUR Negative 06/28/2017 NITRITE Negative 06/28/2017 PHUR 5.5 06/28/2017 GLUCOSEU Negative 06/28/2017 KETONESU Negative 06/28/2017 LEUKOCYTESUR Negative 06/28/2017 PVR: No results found for: UVOL1, UVOL2 No results found for: PSA ASSESSMENT: ICD-9-CM ICD-10-CM 1. Elevated PSA 790.93 R97.20 2. BPH with obstruction/lower urinary tract symptoms 600.01 N40.1 599.69 N13.8 I informed the patient that an elevated PSA or abnormal ANGELINA could be due to a number of factors, including prostate cancer but also benign conditions such as benign prostatic hyperplasia and prostatitis. We discussed other potential screening tests, and also the fact that the only way to definitivelydiagnose prostate cancer is with a transrectal ultrasound (TRUS) guided biopsy of the prostate. With regard to TRUS biopsy, the procedure was reviewed at length with the patient. We also discussed the potential risks of the procedure, including bleeding, infection, urinary retention, need for a urinary catheter, sepsis, pain, hematuria, and hematospermia. Valium will be offered to the patient to improve their comfort during the procedure ??? the risks of this were reviewed and the patient was instructed they may not drive or consume alcohol for the rest of the day if they take the medication. The patient understands that they need to take antibiotics before and after the procedure to try toreduce the chance of infection and post-biopsy sepsis. A rectal swab was taken to look for fluoroquinolone resistance. They will stop aspirin and other blood-thinning medications such as Plavix, Coumadin/Warfarin, and NSAIDs 5 days prior to the procedure. Reasonable expectations regarding recovery after the procedure were reviewed with the patient. PLAN: 1. Prostate biopsy in the near future documented in this encounter Plan of Treatment Not on filedocumented as of this encounter Procedures Procedure Name Priority Date/Time Associated Comments Diagnosis FLUOROQ. RESISTANT Routine 06/28/2017 11:05 AM Elevated PSA Re sults for this GNR PST procedure are i n the results section. POCT UA WO Routine 06/28/2017 10:50 AM BPH with Results for this MICROSCOPY - PST obstruction/lower procedure are in AUTOMATED urinary tract the results symptoms section. documented in this encounter Results RECTAL SWAB (06/28/2017 11:05 AM PST) [facility] Method Time Signature CULTURE NO FLUOROQUINOLONE 07/01/2017 PACIFIC RESISTANT 1:27 PM PST DIAGNOSTIC ESCHERICHIA COLI LAB ISOLATED. Comment: No fluoroquinolone resistant Es cherichia coli isolated. The absence of suspect colonies does not rule out the p resence of fluoroquinolone resistant microorganisms. Specimen Anatomical Collection Method Collection Time Receive d Time (Source) Location / / Volume Laterality Swab (Rectum) 06/28/2017 11:05 06/28/2017 AM PST 3:38 PM PST Narrative [facility] - 07/01/2017 1:2 7 PM PST RECTAL SWAB Konrad Lewis MD LAB BLOOD ORDERABLES Performing Organization Address City/State/ZIP Code Phon e Number [facility] [address] PO[address] Urinalysis (06/28/2017 10:50 AM PST) [facility] [employer] Method Time Signature GLUCOSE UA Negative Negative [facility] BILIRUBIN UA Negative Negative [facility] KETONES UA Negative Negative [facility] SPEC GRAV UA 1.015 1.005 - SANSUM 1.030 CLINIC POC BLOOD UA Negative Negative [facility] PH UA 5.5 5.0 - 8.0 [facility] PROTEIN UA Negative Negative [facility] UROBILINOGEN UA 0.2 1 mG/dl [facility] NITRITE UA Negative Negative [facility] LEUKOCYTES UA Negative Negative [facility] Specimen (Source) Anatomical Collection Method Collection Time Re ceived Time Location / / Volume Laterality 06/28/2017 10:50 AM PST Konrad Lewis MD POINT OF CARE TEST ORDERABLE S Performing Organization Address City/[facility]/ZIP Code Phon e Number [facility] [address] [place] [address] [facility] [phone] documented in this encounter Visit Diagnoses Diagnosis Elevated PSA - Primary Elevated prostate specific antigen (PSA) BPH with obstruction/lower urinary tract symptoms Hypertrophy of prostate with urinary obs truction and other lower urinary tract symptoms (LUTS) documented in this encounter
[2021-04-17 07:55] LABS: Hemoglobin A1C 5.7 % (<5.7)
[2021-04-17 09:11] LABS: CREATININE 1.2 mg/dL (0.70-1.30); Calculated LDL 92 mg/dL (<100); Cholesterol 162 mg/dL (<200); HDL Cholesterol 29 mg/dL (40-60); Potassium 4.1 mmol/L (3.5-5.1); Triglyceride 208 mg/dL (<150)
[2021-04-17 18:38] LABS: PSA, Screening 10.8 ng/mL (0.0-4.5)
== END 2021-04-17 03:16 | disposition home or self-care (01) ==
LOC: LBO 03:16
PROVIDERS: PCP Nurse Practitioner; Visit Provider Nurse Practitioner
DX: I10 Essential (primary) hypertension; G47.00 Insomnia, unspecified; R73.9 Hyperglycemia, unspecified; N52.9 Male erectile dysfunction, unspecified; Z12.5 Encounter for screening for malignant neoplasm of prostate
CPT/HCPCS: 36415; 80061; 84153; 82565; 83036; 84132; 84443

== ENCOUNTER → 2021-05-09 10:41 | Outpatient (BNVA) | payer MEDICARE, MEDICAID, SELFPAY | PROVIDERS: PCP Nurse Practitioner; Referring Provider Nurse Practitioner; Visit Provider Urology | DX: R39.89 Other symptoms and signs involving the genitourinary system (principal); R97.20 Elevated prostate specific antigen [PSA] | CPT/HCPCS: 99215 ==

== ENCOUNTER 2021-05-31 03:08 | Outpatient (CLI) | payer MEDICARE, MEDICAID, SELFPAY ==
[2021-05-31 13:55] LABS: Abs Immature Grans 0.02 10^3/uL (0.0-0.06); Absolute Basophil Count 0.04 10^3/uL (0.0-0.2); Absolute Eosinophil Count 0.15 10^3/uL (0.0-0.7); Absolute Lymphocyte Count 2.07 10^3/uL (1.2-3.4); Absolute Monocyte Count 0.61 10^3/uL (0.1-0.8); Absolute Neutrophil Count 4.91 10^3/uL (1.2-6.7); Basophils % 0.5; Eosinophils % 1.9; HCT 45.5 % (40.0-50.0); HGB 14.8 g/dL (13.5-17.5); Immature Grans % 0.3; Lymphocytes % 26.5; MCH 30.2 pg (27.0-33.0); MCHC 32.5 % (32.0-36.0); MCV 92.9 fL (80-95); MPV 11.3 fL (8.0-11.0); Monocytes % 7.8; Nucleated RBC 0 %; Platelet Count 193 10^3/uL (130-400); RDW 12.8 % (11.8-14.1); RDW-SD 43.8 fL
[2021-05-31 15:42] LABS: NT-proBNP 50 pg/mL (<300); TSH (W/Ref FT4) 1.52 uIU/mL (0.36-3.74)
[2021-05-31 22:08] LABS: ALT 60 U/L (16-63); AST 32 U/L (15-37); Albumin 4.1 g/dL (3.4-5.0); Alkaline Phosphatase 102 U/L (46-116); Anion Gap 12.5 mmol/L (3-11); BUN 20 mg/dL (7-18); Bilirubin, Total 0.8 mg/dL (0.2-1.0); CO2 25.5 mmol/L (21.0-32.0); CREATININE 1.3 mg/dL (0.70-1.30); Calcium 9.1 mg/dL (8.5-10.1); Chloride 103 mmol/L (98-107); Estimated GFR 54.73 (mL/min/1.73m2); Glucose 91 mg/dL (74-106); Potassium 4.3 mmol/L (3.5-5.1); Sodium 141 mmol/L (136-145); Total Protein 7.3 g/dL (6.4-8.2)
== END 2021-05-31 03:09 | disposition home or self-care (01) ==
LOC: LBO 03:08
PROVIDERS: Family Medicine; PCP Nurse Practitioner; Visit Provider Nurse Practitioner
DX: E03.9 Hypothyroidism, unspecified (principal); I10 Essential (primary) hypertension; R60.9 Edema, unspecified; I87.2 Venous insufficiency (chronic) (peripheral)
CPT/HCPCS: 36415; 80053; 85027; 83880; 84443; 85025

== ENCOUNTER 2021-06-12 01:53 | Outpatient (CLI) | payer MEDICARE, MEDICAID, SELFPAY ==
--- NOTE | 2021-06-12 08:00 | DI.US_ITS ---
Exam(s) US LOWER EXTREMITY VENOUS LT EXAM: US LOWER EXTREMITY VENOUS LT CLINICAL HISTORY: recent left leg edema,r60.9 TECHNIQUE: Grayscale, color, and doppler imaging of the deep venous system of the left lower extremi ty was performed. COMPARISON: No exams were available for comparison FINDINGS: There is no evidence of intraluminal thrombus and there is normal compression and augmentation demons trated within the common femoral vein, femoral vein, and popliteal vein. In the ipsilateral calf the interrogated veins also exhibit normal compression/ augmentation properti es. The ipsilateral saphenofemoral junction is patent. IMPRESSION: 1. No evidence of DVT in the left lower extremity. DATA REPOSITORY:
== END 2021-06-12 02:13 ==
PROVIDERS: PCP Nurse Practitioner; Visit Provider Family Medicine
DX: R60.0 Localized edema (principal); I87.2 Venous insufficiency (chronic) (peripheral); I10 Essential (primary) hypertension; E03.9 Hypothyroidism, unspecified
CPT/HCPCS: 93971

== ENCOUNTER → 2021-06-16 14:41 | Outpatient (BNVA) | payer MEDICARE, MEDICAID, SELFPAY | PROVIDERS: PCP Nurse Practitioner; Referring Provider Nurse Practitioner; Visit Provider Urology | DX: R97.20 Elevated prostate specific antigen [PSA] (principal); R39.89 Other symptoms and signs involving the genitourinary system | CPT/HCPCS: 99213 ==

== ENCOUNTER 2021-08-30 03:01 | Outpatient (CLI) | payer MEDICARE, MEDICAID, SELFPAY ==
[2021-08-30 09:28] LABS: Hemoglobin A1C 5.8 % (<5.7)
[2021-08-30 09:38] LABS: HCT 41.2 % (40.0-50.0); HGB 13.8 g/dL (13.5-17.5); MCHC 33.5 % (32.0-36.0); MCV 92.6 fL (80-95); MPV 11.8 fL (8.0-11.0); Platelet Count 264 10^3/uL (130-400); RBC 4.45 10^6/uL (4.36-5.78); RDW 12.9 % (11.8-14.1); RDW-SD 43.3 fL
[2021-08-30 10:18] LABS: Anion Gap 7.2 mmol/L (3-11); BUN 21 mg/dL (7-18); CO2 28.8 mmol/L (21.0-32.0); CREATININE 1.1 mg/dL (0.70-1.30); Calcium 8.8 mg/dL (8.5-10.1); Calculated LDL 45 mg/dL (<100); Chloride 107 mmol/L (98-107); Cholesterol 97 mg/dL (<200); Glucose 100 mg/dL (74-106); HDL Cholesterol 31 mg/dL (40-60); Potassium 4.5 mmol/L (3.5-5.1); Sodium 143 mmol/L (136-145); Triglyceride 106 mg/dL (<150)
[2021-08-30 18:12] LABS: PSA, Screening 10.4 ng/mL (<=4.5)
== END 2021-08-30 03:02 | disposition home or self-care (01) ==
LOC: LBO 03:01
PROVIDERS: PCP Nurse Practitioner; Visit Provider Family Medicine
DX: E03.9 Hypothyroidism, unspecified (principal); E78.5 Hyperlipidemia, unspecified; R73.03 Prediabetes; R97.20 Elevated prostate specific antigen [PSA]; I10 Essential (primary) hypertension; I87.2 Venous insufficiency (chronic) (peripheral); R60.9 Edema, unspecified; Z12.5 Encounter for screening for malignant neoplasm of prostate
CPT/HCPCS: 80048; 80061; 84153; 85027; 83036

== ENCOUNTER 2021-11-27 02:55 | Outpatient (CLI) | payer MEDICARE, MEDICAID, SELFPAY ==
[2021-11-27 23:12] LABS: PSA, Diagnostic 11.3 ng/mL (<=4.5)
== END 2021-11-27 02:56 | disposition home or self-care (01) ==
LOC: LBO 02:56
PROVIDERS: PCP Nurse Practitioner; Visit Provider Urology
DX: R97.20 Elevated prostate specific antigen [PSA] (principal)
CPT/HCPCS: 36415; 84153

== ENCOUNTER → 2021-12-05 14:16 | Outpatient (BNVA) | payer MEDICARE, MEDICAID, SELFPAY | PROVIDERS: PCP Nurse Practitioner; Referring Provider Nurse Practitioner; Visit Provider Urology | DX: R39.12 Poor urinary stream (principal); R97.20 Elevated prostate specific antigen [PSA] | CPT/HCPCS: 99214 ==

== ENCOUNTER 2022-05-29 03:15 | Outpatient (CLI) | payer MEDICARE, SELFPAY ==
[2022-05-30 10:14] LABS: PSA, Diagnostic 10.9 ng/mL (<=6.5)
== END 2022-05-29 03:16 | disposition home or self-care (01) ==
LOC: LBO 03:15
PROVIDERS: PCP Nurse Practitioner Family; Visit Provider Urology
DX: R97.20 Elevated prostate specific antigen [PSA] (principal)
CPT/HCPCS: 36415; 84153

== ENCOUNTER → 2022-06-05 14:26 | Outpatient (BNVA) | payer MEDICARE, MEDICAID, SELFPAY | PROVIDERS: PCP Nurse Practitioner Family; Referring Provider Nurse Practitioner Family; Visit Provider Urology | DX: N52.9 Male erectile dysfunction, unspecified (principal); R97.20 Elevated prostate specific antigen [PSA] | CPT/HCPCS: 99213 ==

== ENCOUNTER 2022-06-11 02:49 | Outpatient (CLI) | payer MEDICARE, MEDICAID, SELFPAY ==
[2022-06-11 14:17] LABS: HCT 41.7 % (40.0-50.0); HGB 13.9 g/dL (13.5-17.5); MCH 31.1 pg (27.0-33.0); MCHC 33.3 % (32.0-36.0); MCV 93 fL (80-95); MPV 11.4 fL (8.0-11.0); Platelet Count 195 10^3/uL (130-400); RBC 4.47 10^6/uL (4.36-5.78); RDW 12.5 % (11.8-14.1); RDW-SD 43.1 fL; WBC 9.37 10^3/uL (4.4-10.8)
[2022-06-11 14:31] LABS: Hemoglobin A1C 5.6 % (<5.7)
[2022-06-11 15:21] LABS: ALT 39 U/L (16-63); AST 41 U/L (15-37); Alkaline Phosphatase 97 U/L (46-116); Anion Gap 4.3 mmol/L (3-11); BUN 21 mg/dL (7-18); Bilirubin, Total 0.5 mg/dL (0.2-1.0); CO2 29.7 mmol/L (21.0-32.0); CREATININE 1.2 mg/dL (0.70-1.30); Calcium 8.9 mg/dL (8.5-10.1); Chloride 107 mmol/L (98-107); Estimated GFR 65.06 (mL/min/1.73m2); Glucose 85 mg/dL (74-106); Potassium 4.4 mmol/L (3.5-5.1); Sodium 141 mmol/L (136-145); TSH (W/Ref FT4) 1.71 uIU/mL (0.36-3.74); Total Protein 7.2 g/dL (6.4-8.2)
== END 2022-06-11 02:50 | disposition home or self-care (01) ==
PROVIDERS: PCP Nurse Practitioner Family; Visit Provider Nurse Practitioner Family
DX: E03.9 Hypothyroidism, unspecified (principal); E78.5 Hyperlipidemia, unspecified; R73.03 Prediabetes; I10 Essential (primary) hypertension; I87.2 Venous insufficiency (chronic) (peripheral)
CPT/HCPCS: 36415; 80053; 85027; 83036; 84443

== ENCOUNTER 2022-09-03 00:46 | Outpatient (CLI) | payer MEDICARE, MEDICAID, SELFPAY ==
--- NOTE | 2022-09-03 07:47 | DI.CTLCSR_ITS ---
Exam(s) CT CHEST LUNG CANCER SCREEN EXAM: CT CHEST LUNG CANCER SCREEN CLINICAL HISTORY: Screening for lung cancer,former smoker, z87.891. TECHNIQUE: Imaging Protocol: Low Dose Technique CONTRAST MATERIAL: None COMPARISON: No exams were available for comparison FINDINGS: CHEST: LUNGS: Is a tiny calcified granuloma in the left upper lobe. There are tiny granulomas also evident right upper. Tiny granuloma superior segment left lower lobe. Tiny granuloma in the lateral basal s egment left lower lobe. No ominous pulmonary nodules. No confluent infiltrates. No pleural effusio ns. No significant findings in the trachea and mainstem bronchi.. No pleural effusions. MEDIASTINUM: There is no obvious hilar nor mediastinal adenopathy. CARDIAC: Heart size is normal. There is no pericardial effusion.Caliber of the thoracic aorta is wit hin normal limits. OTHER: OSSEOUS: z. IMPRESSION: 1. Bilateral tiny calcified benign granulomas. No ominous lung nodules. 2. No infiltrates nor pleural effusions. No intrathoracic adenopathy. 3. Lung RADS Cat 1 - Negative: No nodules and definitely benign nodules Lung-RADS 1.0 CATEGORIES: Category 0 - Prior chest CT exam(s) being located for comparison. Category 1 - Annual screening in 12 months. No nodules or definitely benign nodules. Category 2 - Annual screening in 12 months. Benign appearance. Nodules with low likelihood of becomin g active cancer. Category 3 - 6-month follow-up. Probably benign. Short-term follow-up suggested. Nodules with low lik elihood of becoming active cancer. Category 4A - 3-month follow-up and CT/PET if >8 mm in size. Suspicious finding. Findings which requi re additional testing. Category 4B - Findings which require additional testing and tissue sampling. Category 4X - Category 3 or 4 nodules with additional features or imaging findings that increases the suspicion of malignancy. Modifier S- Potentially clinically significant findings (non lung cancer) RADIATION DOSE DELIVERED: 94mGy.cm Total DLP DATA REPOSITORY: All CT scans at this facility are submitted to the National Radiology Data Registry (NRDR) Dose Index Registry (DIR) with the [employer] (ACR). RADIATION OPTIMIZATION: All CT scans at this facility use at least one of these dose optimization te chniques: automated exposure control; mA and/or kV adjustment per patient size (includes targeted exa ms where dose is matched to clinical indication); or iterative reconstruction.
== END 2022-09-03 01:06 ==
LOC: DI 00:46
PROVIDERS: PCP Nurse Practitioner Family; Visit Provider Nurse Practitioner Family
DX: E11.9 Type 2 diabetes mellitus without complications (principal); Z87.891 Personal history of nicotine dependence
CPT/HCPCS: 71271

== ENCOUNTER 2022-11-22 03:01 | Outpatient (CLI) | payer MEDICARE, MEDICAID, SELFPAY ==
[2022-11-22 20:14] LABS: PSA, Diagnostic 11.1 ng/mL (<=6.5)
== END 2022-11-22 03:02 | disposition home or self-care (01) ==
LOC: LBO 03:01
PROVIDERS: PCP Nurse Practitioner Family; Visit Provider Urology
DX: R97.20 Elevated prostate specific antigen [PSA] (principal)
CPT/HCPCS: 36415; 84153

== ENCOUNTER 2022-12-20 03:57 | Outpatient (CLI) | payer MEDICARE, MEDICAID, SELFPAY ==
[2022-12-20 15:24] LABS: Anion Gap 7.3 mmol/L (3-11); BUN 27 mg/dL (7-18); CO2 28.7 mmol/L (21.0-32.0); CREATININE 1.4 mg/dL (0.70-1.30); Calcium 8.8 mg/dL (8.5-10.1); Chloride 105 mmol/L (98-107); Estimated GFR 54.07 (mL/min/1.73m2); Glucose 95 mg/dL (74-106); Sodium 141 mmol/L (136-145)
== END 2022-12-20 03:58 | disposition home or self-care (01) ==
LOC: LBO 03:57
PROVIDERS: PCP Nurse Practitioner Family; Visit Provider Nurse Practitioner Family
DX: R60.0 Localized edema (principal); I10 Essential (primary) hypertension; E03.9 Hypothyroidism, unspecified
CPT/HCPCS: 36415; 80048; 80053; 80061; 85027; 84443

== ENCOUNTER → 2023-02-18 08:14 | Outpatient (BNVA) | payer MEDICARE, MEDICAID, SELFPAY | PROVIDERS: PCP Nurse Practitioner Family; Referring Provider Nurse Practitioner Family; Visit Provider Nurse Practitioner Gerontology | DX: N52.9 Male erectile dysfunction, unspecified (principal); E03.9 Hypothyroidism, unspecified; I10 Essential (primary) hypertension | CPT/HCPCS: 99214 ==

== ENCOUNTER 2023-02-25 04:50 | Outpatient (CLI) | payer MEDICARE, MEDICAID, SELFPAY ==
[2023-02-25 08:22] LABS: HCT 43.3 % (40.0-50.0); HGB 14.8 g/dL (13.5-17.5); MCH 31.2 pg (27.0-33.0); MCHC 34.2 % (32.0-36.0); MCV 91 fL (80-95); MPV 11.1 fL (8.0-11.0); Platelet Count 169 10^3/uL (130-400); RBC 4.75 10^6/uL (4.36-5.78); RDW 12.4 % (11.8-14.1); RDW-SD 41.6 fL; WBC 6.59 10^3/uL (4.4-10.8)
[2023-02-25 09:12] LABS: ALT 35 U/L (16-63); AST 26 U/L (15-37); Albumin 3.9 g/dL (3.4-5.0); Alkaline Phosphatase 98 U/L (46-116); Anion Gap 9.6 mmol/L (3-11); BUN 17 mg/dL (7-18); CO2 23.4 mmol/L (21.0-32.0); CREATININE 1.2 mg/dL (0.70-1.30); Calcium 9.4 mg/dL (8.5-10.1); Chloride 103 mmol/L (98-107); Estimated GFR 64.65 (mL/min/1.73m2); Glucose 115 mg/dL (74-106); Sodium 136 mmol/L (136-145); TSH (W/Ref FT4) 1.52 uIU/mL (0.36-3.74); Total Protein 7.6 g/dL (6.4-8.2)
[2023-02-28 11:46] LABS: Testosterone, Total 315 ng/dL (240-950)
== END 2023-02-25 04:51 | disposition home or self-care (01) ==
LOC: LBO 04:50
PROVIDERS: PCP Nurse Practitioner Family; Visit Provider Nurse Practitioner Gerontology
DX: E03.9 Hypothyroidism, unspecified (principal); M62.50 Muscle wasting and atrophy, not elsewhere classified, unspecified site; N52.9 Male erectile dysfunction, unspecified; R53.83 Other fatigue; R97.20 Elevated prostate specific antigen [PSA]; E29.1 Testicular hypofunction
CPT/HCPCS: 36415; 80053; 84403; 85027; 84443

== ENCOUNTER 2023-08-19 05:42 | Outpatient (CLI) | payer MEDICARE, MEDICAID, SELFPAY ==
[2023-08-19 09:06] LABS: Hemoglobin A1C 5.9 % (<5.7)
[2023-08-19 09:17] LABS: Anion Gap 8.6 mmol/L (3-11); BUN 22 mg/dL (7-18); CO2 27.4 mmol/L (21.0-32.0); CREATININE 1.3 mg/dL (0.70-1.30); Calcium 8.7 mg/dL (8.5-10.1); Calculated LDL 44 mg/dL (<100); Chloride 106 mmol/L (98-107); Cholesterol 114 mg/dL (<200); Estimated GFR 58.73 (mL/min/1.73m2); Glucose 112 mg/dL (74-106); HDL Cholesterol 38 mg/dL (40-60); Potassium 4.5 mmol/L (3.5-5.1); Sodium 142 mmol/L (136-145); Triglyceride 162 mg/dL (<150)
[2023-08-19 19:22] LABS: PSA, Diagnostic 11.8 ng/mL (<=6.5)
== END 2023-08-19 05:43 | disposition home or self-care (01) ==
PROVIDERS: PCP Nurse Practitioner Family; Visit Provider Nurse Practitioner Gerontology
DX: R97.20 Elevated prostate specific antigen [PSA] (principal); E03.9 Hypothyroidism, unspecified; R53.83 Other fatigue; E78.5 Hyperlipidemia, unspecified; Z00.00 Encounter for general adult medical examination without abnormal findings; R73.03 Prediabetes; I10 Essential (primary) hypertension
CPT/HCPCS: 36415; 80048; 80061; 83036; 84153

== ENCOUNTER → 2023-08-26 08:16 | Outpatient (BNVA) | payer MEDICARE, MEDICAID, SELFPAY | PROVIDERS: PCP Nurse Practitioner Family; Visit Provider Nurse Practitioner Gerontology | DX: N40.1 Benign prostatic hyperplasia with lower urinary tract symptoms (principal); R39.12 Poor urinary stream; R97.20 Elevated prostate specific antigen [PSA] | CPT/HCPCS: 99213 ==

== ENCOUNTER → 2023-09-20 03:22 | Outpatient (CLI) | payer MEDICARE, MEDICAID, SELFPAY ==
--- NOTE | 2023-09-20 07:30 | DI.CTLCSR_ITS ---
Exam(s) CT CHEST LUNG CANCER SCREEN EXAM: CT CHEST LUNG CANCER SCREEN CLINICAL HISTORY: Screening for lung cancer,FORMER SMOKER, Z87.891 TECHNIQUE: Imaging Protocol: Axial computed tomography images with coronal and sagittal reformatted images were created and reviewed. Low dose screening protocol. COMPARISON: CT CT CHEST LUNG CANCER SCREEN from 09/03/2022 FINDINGS: Tracheobronchial tree: No bronchiectasis or mucus plugging. Mediastinum and Cher: No dominant adenopathy or fluid collection. Pulmonary parenchyma: No consolidation or dominant measurable mass. Dependent changes at the lung ba ses. Mild emphysematous changes. Lung Nodules: Scattered calcified granulomas. Pleura: No effusion. No pneumothorax. Heart: The heart is not dilated. Mild coronary artery calcifications are seen. Aorta: Thoracic aorta non-dilated. Upper abdomen: Unremarkable. Bones: Flowing osteophytes in the thoracic spine. No compression fractures. Soft Tissues: Unremarkable. IMPRESSION: No suspicious pulmonary nodules. Lung RADS Cat 1 - Negative: No nodules and definitely benign nodules Lung-RADS 1.0 CATEGORIES: Category 0 - Prior chest CT exam(s) being located for comparison. Category 1 - Annual screening in 12 months. No nodules or definitely benign nodules. Category 2 - Annual screening in 12 months. Benign appearance. Nodules with low likelihood of becomin g active cancer. Category 3 - 6-month follow-up. Probably benign. Short-term follow-up suggested. Nodules with low lik elihood of becoming active cancer. Category 4A - 3-month follow-up and CT/PET if >8 mm in size. Suspicious finding. Findings which requi re additional testing. Category 4B - Findings which require additional testing and tissue sampling. Category 4X - Category 3 or 4 nodules with additional features or imaging findings that increases the suspicion of malignancy. Modifier S- Potentially clinically significant findings (non lung cancer) RADIATION DOSE DELIVERED: 84.16mGy.cm Total DLP DATA REPOSITORY: All CT scans at this facility are submitted to the National Radiology Data Registry (NRDR) Dose Index Registry (DIR) with the [employer] (ACR). RADIATION OPTIMIZATION: All CT scans at this facility use at least one of these dose optimization te chniques: automated exposure control; mA and/or kV adjustment per patient size (includes targeted exa ms where dose is matched to clinical indication); or iterative reconstruction.
== END ==
PROVIDERS: PCP Nurse Practitioner Family; Visit Provider Nurse Practitioner Family
DX: Z87.891 Personal history of nicotine dependence (principal); Z12.2 Encounter for screening for malignant neoplasm of respiratory organs
CPT/HCPCS: 71271

== ENCOUNTER 2023-11-12 02:54 | Outpatient (CLI) | payer MEDICARE, MEDICAID, SELFPAY ==
[2023-11-12 11:44] LABS: BUN 21 mg/dL (7-18); CREATININE 1.3 mg/dL (0.70-1.30); Calcium 9.4 mg/dL (8.5-10.1); Calculated LDL 54 mg/dL (<100); Chloride 105 mmol/L (98-107); Cholesterol 137 mg/dL (<200); Estimated GFR 58.73 (mL/min/1.73m2); Glucose 105 mg/dL (74-106); HDL Cholesterol 38 mg/dL (40-60); Potassium 4.2 mmol/L (3.5-5.1); Sodium 143 mmol/L (136-145); TSH (W/Ref FT4) 2.49 uIU/mL (0.36-3.74); Triglyceride 225 mg/dL (<150)
== END 2023-11-12 02:55 | disposition home or self-care (01) ==
LOC: LBO 02:54
PROVIDERS: PCP Nurse Practitioner Family; Visit Provider Nurse Practitioner Family
DX: Z00.00 Encounter for general adult medical examination without abnormal findings (principal); I10 Essential (primary) hypertension; E78.5 Hyperlipidemia, unspecified; R73.03 Prediabetes; E03.9 Hypothyroidism, unspecified; G47.33 Obstructive sleep apnea (adult) (pediatric)
CPT/HCPCS: 36415; 80048; 80061; 84443

== ENCOUNTER 2024-02-19 02:06 | Outpatient (CLI) | payer MEDICARE, SELFPAY ==
[2024-02-19 19:29] LABS: PSA, Diagnostic 10.3 ng/mL (<=6.5)
== END 2024-02-19 02:07 | disposition home or self-care (01) ==
LOC: LBO 02:06
PROVIDERS: PCP Nurse Practitioner Family; Visit Provider Nurse Practitioner Gerontology
DX: R97.20 Elevated prostate specific antigen [PSA] (principal)
CPT/HCPCS: 36415; 84153

== ENCOUNTER → 2024-02-26 08:24 | Outpatient (BNVA) | payer MEDICARE, MEDICAID, SELFPAY | PROVIDERS: PCP Nurse Practitioner Family; Visit Provider Nurse Practitioner Gerontology | DX: E66.9 Obesity, unspecified (principal); N42.89 Other specified disorders of prostate; N52.9 Male erectile dysfunction, unspecified; R97.20 Elevated prostate specific antigen [PSA] | CPT/HCPCS: 99214 ==

== ENCOUNTER 2024-05-26 02:59 | Outpatient (CLI) | payer MEDICARE, MEDICAID, SELFPAY ==
[2024-05-26 12:34] LABS: Hemoglobin A1C 5.9 % (<5.7)
[2024-05-26 12:58] LABS: ALT 52 U/L (16-63); AST 35 U/L (15-37); Alkaline Phosphatase 84 U/L (46-116); Anion Gap 7.8 mmol/L (3-11); BUN 19 mg/dL (7-18); Bilirubin, Total 0.84 mg/dL (0.2-1.0); CO2 29.2 mmol/L (21.0-32.0); CREATININE 1.3 mg/dL (0.70-1.30); Calcium 9.6 mg/dL (8.5-10.1); Calculated LDL 53 mg/dL (<100); Chloride 105 mmol/L (98-107); Cholesterol 122 mg/dL (<200); Estimated GFR 58.37 (mL/min/1.73m2); Glucose 100 mg/dL (74-106); HDL Cholesterol 39 mg/dL (40-60); Potassium 4.4 mmol/L (3.5-5.1); Sodium 142 mmol/L (136-145); TSH (W/Ref FT4) 0.97 uIU/mL (0.36-3.74); Total Protein 7.7 g/dL (6.4-8.2); Triglyceride 150 mg/dL (<150)
== END 2024-05-26 03:00 | disposition home or self-care (01) ==
LOC: LBO 02:59
PROVIDERS: PCP Nurse Practitioner Family; Visit Provider Nurse Practitioner Family
DX: Z00.00 Encounter for general adult medical examination without abnormal findings (principal); I10 Essential (primary) hypertension; E78.5 Hyperlipidemia, unspecified; R73.03 Prediabetes; E03.9 Hypothyroidism, unspecified; G47.33 Obstructive sleep apnea (adult) (pediatric)
CPT/HCPCS: 36415; 80053; 80061; 83036; 84443

== ENCOUNTER 2024-08-19 02:54 | Outpatient (CLI) | payer MEDICARE, MEDICAID, SELFPAY ==
[2024-08-19 18:53] LABS: PSA, Diagnostic 12.7 ng/mL (<=6.5)
== END 2024-08-19 02:55 | disposition home or self-care (01) ==
LOC: LBO 02:54
PROVIDERS: PCP Nurse Practitioner Family; Visit Provider Nurse Practitioner Gerontology
DX: R97.20 Elevated prostate specific antigen [PSA] (principal)
CPT/HCPCS: 36415; 84153

== ENCOUNTER → 2024-08-26 09:17 | Outpatient (BNVA) | payer MEDICARE, MEDICAID, SELFPAY | PROVIDERS: PCP Nurse Practitioner Family; Visit Provider Nurse Practitioner Gerontology | DX: R97.20 Elevated prostate specific antigen [PSA] (principal); E66.9 Obesity, unspecified; I10 Essential (primary) hypertension | CPT/HCPCS: 99213; 99214 ==

== ENCOUNTER 2024-11-18 03:57 | Outpatient (CLI) | payer MEDICARE, MEDICAID, SELFPAY ==
[2024-11-18 19:00] LABS: PSA, Diagnostic 13.7 ng/mL (<=6.5)
== END 2024-11-18 03:58 | disposition home or self-care (01) ==
LOC: LBO 03:57
PROVIDERS: PCP Nurse Practitioner Family; Visit Provider Nurse Practitioner Gerontology
DX: R97.20 Elevated prostate specific antigen [PSA] (principal)
CPT/HCPCS: 36415; 84153

== ENCOUNTER → 2024-11-25 08:47 | Outpatient (BNVA) | payer MEDICARE, MEDICAID, SELFPAY | PROVIDERS: PCP Nurse Practitioner Family; Referring Provider Nurse Practitioner Family; Visit Provider Nurse Practitioner Gerontology | DX: N40.1 Benign prostatic hyperplasia with lower urinary tract symptoms (principal); R97.20 Elevated prostate specific antigen [PSA]; E66.9 Obesity, unspecified; I10 Essential (primary) hypertension | CPT/HCPCS: 99214 ==

== ENCOUNTER → 2024-12-31 12:40 | Outpatient (BNVA) | payer MEDICARE, MEDICAID, SELFPAY | PROVIDERS: PCP Nurse Practitioner Family; Referring Provider Nurse Practitioner Family; Visit Provider Nurse Practitioner Gerontology | DX: R97.20 Elevated prostate specific antigen [PSA] (principal) | CPT/HCPCS: 99214 ==

== ENCOUNTER → 2025-02-05 08:47 | Outpatient (BNVA) | payer MEDICARE, MEDICAID, SELFPAY | PROVIDERS: PCP Nurse Practitioner Family; Referring Provider Nurse Practitioner Family; Visit Provider Urology | DX: C61 Malignant neoplasm of prostate (principal) | CPT/HCPCS: 55700; 76872 ==

== ENCOUNTER 2025-02-05 09:42 | Outpatient (REF) | payer MEDICARE, MEDICAID, SELFPAY ==
--- NOTE | 2025-02-05 09:20 | PROST_PTH ---
PATIENT: Dinesh Rodriguez LOC: [facility] U#:[id number] AGE/SX: 75/M ROOM: RE02/05/[address]: Herson Alejandro MD : 1950 BED: DIS: 02/05/2025 SPEC #: [id number] RECD: 02/05/25 12:47 STATUS: [facility] #: [id number] MELONY: 02/05/25 09:[address]: Herson Alejandro DEPT: Surgical Specimen RECD BY: Fadia Washington ENTERED: 02/05/25 12:49 SP TYPE: PROST OTHR DR: Geri Hernandez, MARIA EUGENIA Tissues: 1 - PROSTATE NEEDLE BIOPSY 2 - PROSTATE NEEDLE BIOPSY 3 - PROSTATE NEEDLE BIOPSY 4 - PROSTATE NEEDLE BIOPSY 5 - PROSTATE NEEDLE BIOPSY 6 - PROSTATE NEEDLE BIOPSY 7 - PROSTATE NEEDLE BIOPSY 8 - PROSTATE NEEDLE BIOPSY 9 - PROSTATE NEEDLE BIOPSY 10 - PROSTATE NEEDLE BIOPSY 11 - PROSTATE NEEDLE BIOPSY 12 - PROSTATE NEEDLE BIOPSY Procedures: GROSS AND MICRO LEVEL 4 Comments: [id number]
== END 2025-02-05 09:43 | disposition home or self-care (01) ==
LOC: LBN 09:42
PROVIDERS: PCP Nurse Practitioner Family; Visit Provider Urology
DX: C61 Malignant neoplasm of prostate (principal)
CPT/HCPCS: 88305

== ENCOUNTER → 2025-02-19 10:45 | Outpatient (BNVA) | payer MEDICARE, MEDICAID, SELFPAY | PROVIDERS: PCP Nurse Practitioner Family; Referring Provider Nurse Practitioner Family; Visit Provider Urology | DX: C61 Malignant neoplasm of prostate (principal) | CPT/HCPCS: 99213 ==

== ENCOUNTER → 2025-03-15 14:45 | Outpatient (BNVA) | payer MEDICARE, MEDICAID, SELFPAY | PROVIDERS: PCP Nurse Practitioner Family; Referring Provider Nurse Practitioner Family; Visit Provider Urology | DX: C61 Malignant neoplasm of prostate (principal) | CPT/HCPCS: 99214 ==